=== PATIENT | female | born 1965 | race Caucasian/White ===

== ENCOUNTER 2025-07-13 12:43 | Outpatient (AMB) | payer MEDICARE, MEDICAID, SELFPAY ==
--- OUTSIDE RECORDS SUMMARY | 2025-07-09 22:59 | XMS_ITS | Continuity of Care Document ---
Author Organization [facility] Address [address] [place] [address]- Care Team Providers Care Fairing Man Name Role Phone Bharat Singh MD, Ezra Spaulding Primary Care Physic chuck [place] [facility] [place] - 07/09/25 [facility] [address] [place], [place] [phone] Encounter Type: Triage Allergies, Adverse Reactions, Alerts Substance Criticality Severity Reaction Reaction Severity Status vancomycin Active methylPREDNISolone throat sw ells, hives difuse swelling skin breakdown Active prochlorperazine Act gwyn Bactrim Active Benadryl 1 IV benadryl cau ses SOB, hives Active lisinopril S.O.B. Active sulfa drugs Active Rapamune itching, hives, chest tight, difficulty breathing Active 1tolerates po benadryl Immunizations Given and Recorded Vaccine Date Status Refusal Reason pneumococcal 20-valent conjugate vaccine 1 08/21/23 Given tetanus-diphtheria toxoids (Td) 2 08/21/23 Given [id number] bivalent booster vax 09/19/22 Recorded SARS-CoV-2 (COVID-19) mRNA-1273 vaccine 09/19/21 G iven SARS-CoV-2 (COVID-19) mRNA-1273 vaccine 03/30/21 R ecorded SARS-CoV-2 (COVID-19) mRNA-1273 vaccine 02/17/21 R ecorded tetanus/diphtheria/pertussis, acel(Tdap) 3 09/14/10 Given pneumococcal 23-valent vaccine 10/01/08 Given 1Result Comment: [facility] [id number] 2Result Comment: [facility] [id number] 3Admin Note: VIS GIVEN DATED 07/17 Medications acetaminophen-hydrocodone 325 mg-10 mg oral tablet 1 tablet, By Mouth, 2 times a day, PRN Pain , Severe, # 15 tablet, 0 Refills, Maintenance, 06/04/25 10:18:00 AM EDT, Tablet, [facility]/pharmacy #[id number], Partial fill upon patient request if the prescription is for a schedule II opioid drug., 1 tablet By Mouth 2 times a day,x7 days,PRN:Pain , Severe, 163, cm, 03/17/25 9:26:00 EDT, Height, 84.7, kg, 05/18/25 13:06:00 EDT, Dry Weight Start Date: 06/04/25 Stop Date: 06/11/25 Status: Ordered Medication Dispense Status: Completed Quantity: 15.0 Unit: tablet Total Allowed Fills: 1 Fills Dispensed: 0 ammonium lactate 12% topical lotion See Instructions, APPLY TO AFFECTED AREA EVERY DAY TOPICALLY, # 400 mL, 3 Refills, Maintenance, 03/25/25 10:40:00 AM EDT, [id number], 30, APPLY TO AFFECTED AREA EVERY DAY TOPICALLY, 163, cm, 03/17/25 9:26:00 EDT, Height, 84.6, kg, 03/23/25 12:43:00 EDT, Dry Weight Start Date: 03/25/25 Status: Ordered Medication Dispense Status: Completed Quantity: 400.0 Unit: mL Total Allowed Fills: 1 Fills Dispensed: 0 belatacept = 5 mg/kg, IV Infusion, 0 Refills, Maintenance, 12/19/24 5:00:00 PM EDT, Partial fill upon patient request if the prescription is for a schedule II opioid drug. Start Date: 12/19/24 Status: Ordered Medication Dispense Status: Completed Total Allowed Fills: 1 Fills Dispensed: 0 ciprofloxacin 250 mg oral tablet 1 tablet = 250 mg, By Mouth, Every 12 hours, # 14 tablet, 0 Refills, Maintenance, 01/26/25 1:40:00 PM EDT, Tablet, Partial fill upon patient request if the prescription is for a schedule II opioid drug. Start Date: 01/26/25 Stop Date: 02/02/25 Status: Ordered Medication Dispense Status: Completed Quantity: 14.0 Unit: tablet Total Allowed Fills: 1 Fills Dispensed: 0 cyanocobalamin 1000 mcg/ml injectable solution 1 mL, Intramuscular, Every 30 days, # 3 mL, 11 Refills, Maintenance, 03/17/25 10:06:00 AM EDT, [facility]/pharmacy #[id number], 163, cm, 03/17/25 9:26:00 EDT, Height, 85.2, kg, 02/23/25 12:46:00 EDT, Dry Weight Start Date: 03/17/25 Status: Ordered Medication Dispense Status: Completed Quantity: 3.0 Unit: mL Total Allowed Fills: 12 Fills Dispensed: 0 ergocalciferol 88569 iu oral capsule 1, capsule, By Mouth, Every week, # 13 capsule, Refills 2, Maintenance, 01/28/25 1:59:00 PM EDT, Route to Pharmacy Electronically, [id number], 163, cm, 01/22/25 11:26:00 EDT, Height, 85.3, kg, 01/26/25 13:12:00 EDT, Dry Weight Start Date: 01/28/25 Status: Ordered Medication Dispense Status: Completed Quantity: 13.0 Unit: capsule Total Allowed Fills: 1 Fills Dispensed: 0 Flonase 50 mcg/inh nasal spray 2 sprays, Nares, Both, 2 times a day, # 16 Gm, 11 Refills, Maintenance, 12/15/14 2:04:48 PM EDT, [place], [facility]/pharmacy #[id number], 2 sprays Nares, Both 2 times a day Start Date: 12/15/14 Status: Ordered Medication Dispense Status: Completed Quantity: 16.0 Unit: g Total Allowed Fills: 12 Fills Dispensed: 0 Hair, Skin & Nails 5 mg oral capsule 1 capsule = 5 mg, By Mouth, Daily, # 90 capsule, 2 Refills, Maintenance, 01/22/25 11:44:00 AM EDT, [id number], Partial fill upon patient request if the prescription is for a schedule II opioiddrug., 1 capsule By Mouth Daily, 163, cm, 01/22/25 11:26:00 EDT, Height, 85, kg, 01/22/25 11:26:00 EDT, Dry Weight Start Date: 01/22/25 Status: Ordered Medication Dispense Status: Completed Quantity: 90.0 Unit: capsule Total Allowed Fills: 3 Fills Dispensed: 0 lactobacillus acidophilus oral capsule 1 capsule, By Mouth, Daily, # 30 capsule, 0 Refills, Maintenance, 02/22/25 4:29:00 PM EDT, [facility] [id number], 30, TAKE 1 CAPSULE BY MOUTH EVERY DAY, 163, cm, 01/22/25 11:26:00 EDT, Height, 85.3, kg, 01/26/25 13:12:00 EDT, Dry Weight Start Date: 02/22/25 Status: Ordered Medication Dispense Status: Completed Quantity: 30.0 Unit: capsule Total Allowed Fills: 1 Fills Dispensed: 0 levothyroxine 125 mcg (0.125 mg) oral tablet 1 tablet = 125 mcg, By Mouth, Daily, 0 Refills, Maintenance, 10/08/18 1:57:48 PM EST Start Date: 10/08/18 Status: Ordered Medication Dispense Status: Completed Total Allowed Fills: 1 Fills Dispensed: 0 LORazepam 1 mg oral tablet See Instructions, TAKE 1 TABLET BY MOUTH 3 TIMES A DAY NEEDED FOR ANXIETY, # 90 tablet, 5 Refills, Maintenance, 01/22/25 11:48:00 AM EDT, [facility]/pharmacy #[id number], 163, cm, 01/22/25 11:26:00 EDT, Height,85, kg, 01/22/25 11:26:00 EDT, Dry Weight Start Date: 01/22/25 Stop Date: 02/04/27 Status: Ordered Medication Dispense Status: Completed Quantity: 90.0 Unit: tablet Total Allowed Fills: 6 Fills Dispensed: 0 LORazepam 1 mg oral tablet 1 tablet = 1 mg, By Mouth, 3 times a day, PRN for anxiety, # 90 tablet, 4 Refills, Maintenance, 08/18/24 4:37:00 PM EST, Tablet, [facility]/pharmacy #[id number], Partial fill upon patient request if the prescription is for a schedule II opioid drug., 163, cm, 08/11/24 14:44:00 EST, Height, 83.8, kg, 08/11/24 13: 16:00 EST, Dry Weight Start Date: 08/18/24 Status: Ordered Medication Dispense Status: Completed Quantity: 90.0 Unit: tablet Total Allowed Fills: 5 Fills Dispensed: 0 meloxicam 15 mg oral tablet 0.5 tablet = 7.5 mg, By Mouth, Daily Start Date: 12/19/24 Status: Ordered Medication Dispense Status: Completed Total Allowed Fills: 1 Fills Dispensed: 0 Metoprolol Succinate ER 25 mg oral tablet, extended release 25 mg, 1, tablet, By Mouth, Daily, # 90 tablet, Refills 3, Tot. Refills 3, Maintenance, 03/28/25 12:25:00 PM EDT, Route to Pharmacy Electronically, [facility]/pharmacy #[id number], 163, cm, 01/22/25 11:26:00 EDT, Height, 85, kg, 01/22/25 11:26:00 EDT, Dry Weight Start Date: 03/28/25 Status: Ordered Medication Dispense Status: Completed Quantity: 90.0 Unit: tablet Total Allowed Fills: 4 Fills Dispensed: 0 mycophenolic acid 180 mg oral delayed release tablet 3 tablet = 540 mg, By Mouth, 2 times a day, 1 hour before or 2 hours after meals, # 180 tablet, 0 Refills, Maintenance, 12/19/24 4:20:00 PM EDT, [facility] Tablet, Partial fill upon patient request if the prescription is for a schedule II opioid drug. Start Date: 12/19/24 Status: Ordered Medication Dispense Status: Completed Quantity: 180.0 Unit: tablet Total Allowed Fills: 1 Fills Dispensed: 0 Nexium 40 mg oral enteric coated capsule 1 capsule = 40 mg, By Mouth, Daily, # 30 capsule, 11 Refills, Maintenance, 06/09/25 3:50:00 PM EDT, [facility]/pharmacy #[id number], 163, cm, 03/17/25 9:26:00 EDT, Height, 84.7, kg, 05/18/25 13:06:00 EDT, Dry Weight Start Date: 06/09/25 Status: Ordered Medication Dispense Status: Completed Quantity: 30.0 Unit: capsule Total Allowed Fills: 12 Fills Dispensed: 0 Nexium 40 mg oral enteric coated capsule 1 capsule = 40 mg, By Mouth, 2 times a day, Maintenance, 12/19/24 4:56:00 PM EDT, Partial fill upon patient request if the prescription is for a schedule II opioid drug. Start Date: 12/19/24 Status: Ordered Medication Dispense Status: Completed Total Allowed Fills: 1 Fills Dispensed: 0 pravastatin 20 mg oral tablet 1 tablet = 20 mg, By Mouth, Daily, # 30 tablet, 11 Refills, Maintenance, 02/22/15 8:42:10 AM EDT, Tablet, [id number] Start Date: 02/22/15 Stop Date: 02/17/16 Status: Ordered Medication Dispense Status: Completed Quantity: 30.0 Unit: tablet Total Allowed Fills: 12 Fills Dispensed: 0 Ventolin HFA 108 mcg/inh inhalation aerosol with adapter 2 puffs, Inhalation, 4 times a day, PRN for wheezing, # 8 Gm, 0 Refills, Maintenance, 12/19/24 4:20:00 PM EDT, Aerosol, Partial fill upon patient request if the prescription is for a schedule II opioid drug. Start Date: 12/19/24 Status: Ordered Medication Dispense Status: Completed Quantity: 8.0 Unit: g Total Allowed Fills: 1 Fills Dispensed: 0 Vitamin B6 100 mg oral tablet 1 tablet = 100 mg, By Mouth, Daily, # 90 tablet, 3 Refills, Maintenance, 01/22/25 11:44:00 AM EDT, Tablet, [id number], Partial fill upon patient request if the prescription is for a schedule II opioid drug., 163, cm, 01/22/25 11:26:00 EDT, Height, 85, kg, 01/22/25 11:26:00 EDT, Dry Weight Start Date: 01/22/25 Stop Date: 01/17/26 Status: Ordered Medication Dispense Status: Completed Quantity: 90.0 Unit: tablet Total Allowed Fills: 4 Fills Dispensed: 0 Xarelto 15 mg oral tablet See Instructions, TAKE 1 TABLET BY MOUTH EVERY DAY BEFORE DINNER, # 90 tablet, 2 Refills, Maintenance, 01/28/25 1:59:00 PM EDT, [id number], 163, cm, 01/22/25 11:26:00 EDT, Height, 85.3, kg, 01/26/25 13:12:00 EDT, Dry Weight Start Date: 01/28/25 Status: Ordered Medication Dispense Status: Completed Quantity: 90.0 Unit: tablet Total Allowed Fills: 1 Fills Dispensed: 0 Problem List Condition Confirmation Course Effective Dates Status H ealth Status Informant Asthma Confirmed Active Atrial fibrillation Confirmed Active Bacterial sinusitis Confirmed Active Stage III chronic kidney disease Confirmed Active B12 deficiency Confirmed Active Depression Confirmed Active Facial palsy 1 Confirmed Active Fibromyalgia Confirmed Active Chronic GERD Confirmed Active History of renal transplant Confirmed Active Hypertension Confirmed Active Hypothyroidism Confirmed Active Libido, decreased Confirmed Active Lupus nephritis Confirmed Active Severe obesity Confirmed Active 1Left lower motor neuron Patient Care team information Care Team Personnel Name: Ebony Miller RN Position: [facility] Nurse Member Role: Primary Care Nurse Name: Martha Zimmerman RN Position: [facility] RN Member Role: Primary Care Nurse Name: Mark John RN Position: [facility] RN Member Role: Primary Care Nurse Name: Gabriela Ragsdale Position: [facility] Outreach Member Role: Lifetime Consulting Physician Name: Cali Navas Position: [facility] RN Member Role: Primary Care Nurse Name: Loc Perez DO Position: [facility] Renal MD Member Role: Lifetime Consulting Physician Address: [address] [place] [address] [facility] [place], [place] [address] Telecom: Name: Roselyn Kathleen Position: [facility] RN Member Role: Primary Care Nurse Name: Courtney Mccrary RN Position: [facility] Nurse Member Role: Primary Care Nurse Name: Ezra Nj MD Position: [facility] Physician - Primary Care Member Role: PCP Address: [address] [place] [id number]- Telecom: Name: Eulalio Lara RN Position: [facility] RN Member Role: Primary Care Nurse Name: Alyssa Vallecillo RN Position: [facility] RN Member Role: Primary Care Nurse Care Team Related Persons Name: ABIMAEL NO Insurance Providers Guarantor name: FERNANDO SINGH Health Plan Information #: 1 Payer: MEDICARE B Payer Identifier: FAVIAN Member Number: [id number] Group Number: NA Subscriber Identifier: FAVIAN Relationship to Subscriber: self Coverage Type: NA Coverage Verification Date: NA Telecom: NA Address: NA Health Plan Information #: 2 Payer: [employer] Payer Identifier: FAVIAN Member Number: [id number] Group Number: [id number] Subscriber Identifier: NA Relationship to Subscriber: self Coverage Type: MEDICAID Coverage Verification Date: NA Telecom: NA Address: NA
--- NOTE | 2025-07-13 13:10 | A.OFFPC_ITS ---
Vital Signs 07/13/25 13:16 07/13/25 14:07 Height 5 ft 4 in Weight 184 lb BMI 31.6 BP 150/84 H 124/82 Blood Pressure Location Rt brachial Position Sitting Respiration 16 Pulse 68 Pulse Source Pulse Oximeter Temp 97.1 F Temp Source Temporal Artery Scan Pulse Oximetry (%) 96 Oxygen Delivery Method Room Air Intake Visit Reasons: reestablish care Powder Worker Tnt Required: No Accompanied by: Mother Allergies diphenhydramine (From Benadryl) Allergy (Severe, Verified 07/13/25 13:31) itching/throat swelling lisinopril Allergy (Severe, Verified 07/13/25 13:31) itching/throat swelling methylprednisolone Allergy (Severe, Verified 07/13/25 13:31) jumpy prochlorperazine Allergy (Severe, Verified 07/13/25 13:31) itching/throat swelling sirolimus (From Rapamune) Allergy (Severe, Verified 07/13/25 13:31) itching/throat swelling Sulfa (Sulfonamide Antibiotics) Allergy (Severe, Verified 07/13/25 13:31) itching/throat swelling sulfamethoxazole (From Bactrim) Allergy (Severe, Verified 07/13/25 13:31) itching/throat swelling trimethoprim (From Bactrim) Allergy (Severe, Verified 07/13/25 13:31) itching/throat swelling vancomycin Allergy (Severe, Verified 07/13/25 13:31) itching/throat swelling fluoxetine Adverse Reaction (Intermediate, Verified 07/13/25 13:53) mental fogginess Medication List - Last Reconciled 07/13/25 by Kaye Talavera MD albuterol sulfate 90 mcg/actuation inhalation belatacept IV cyanocobalamin (vitamin B-12) 1,000 mcg IM QMONTH ergocalciferol (vitamin D2) 1,250 mcg PO QWEEK esomeprazole magnesium mg PO fluoxetine 20 mg PO DAILY fluticasone propionate 50 mcg/actuation 2 sprays intranasal BID hydrocodone-acetaminophen 10-325 mg 1 tab PO BID PRN levothyroxine 125 mcg PO DAILY lorazepam 1 mg PO TID PRN meloxicam 7.5 mg PO ONCE metoprolol succinate ER 25 mg PO DAILY mycophenolate sodium 540 mg PO pravastatin 20 mg PO DAILY prednisone 10 mg PO DAILY pyridoxine (vitamin B6) 100 mg PO DAILY rivaroxaban (Xarelto) 15 mg PO QPM Tobacco use date assessed: 07/13/25 Dental Screening Dental Screen Date: 07/13/25 Did you have a dental visit in the last 12 months?: No Did you have a dental problem in the last 6 months where you did not have access to dental care?: No HPI HPI Comments History of Present Illness Details The patient is a 59-year-old female [facility] with cervical pain and other medical conditions. Renal Transplant/history of lupus nephritis: History of renal transplant used to see Dr. Garcia. Now seeing Dr. Khoury Fibromyalgia: Chronic fibromyalgia with worsening neck pain. Atrial Fibrillation: Previously diagnosed atrial fibrillation managed with xarelto. Hypothyroidism- on levothyroxine Cervical Pain: Progressive cervical pain with 'cracking' sound during movement, worsening over two months, resistant to heat/cold therapy. Cold Sensation and Numbness in the Right Index Finger: Persistent cold and numb sensation in the right index finger without noted alleviation from positional changes. B12 deficiency- receives b12 injections monthly HTN- stable on repeat Depression/anxiety- worsened in setting of increased pain. Has trialed SSRIS in the past with renal provider. Surgical History: - Renal Transplant Surgery Review of Systems - Respiratory: Denies wheezing. - Cardiovascular: Denies recent atrial f ibrillation episodes. - Gastrointestinal: Denies effectiveness of generic esomeprazole - Musculoskeletal: Reports neck pain wit h cracking sensation. - Neurological: Reports cold sensation a nd numbness in the right index finger. Physical Exam - Respiratory- Lungs clear to auscultati on, no wheezing noted. - Cardiovascular- Heart sounds normal. S oft murmur across precordium - Extremities- Mild lower extremity yony a noted. - Msk: tender to palpation left sternocl eidomastoid, pain with flexion and extension of neck Assessment and Plan 1. Renal Transplant - Continue monitoring and manage immunos uppressive therapy per renal. Pt is also considering switching renal providers 2. 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 Atrial Fibrillation - Continue anticoagulation therapy. 4. Cervical Pain - Initiate cervical spine x-ray and cons ider pain management referral. 5. Cold Sensation and Numbness in the Ri ght Index Finger - Evaluate for neurologic or vascular is sues pending diagnostic test. 6. Depression/anxiety-continue to monito r 7. B12 deficiency- received b12 injectio n today Follow up in 4 months Discussion Notes The cervical spine's pain and the sensation issues in her right index finger were discussed in detail. We covered the benefits of immediate x-ray imaging to identify any structural concerns that may be contributing to these symptoms. Further management will include interpretation of these x-rays and corresponding adjustments to her care, potentially involving a referral to pain management if neck pain persists. We reviewed the risks of continuing and changing medications, ensuring the patient's understanding of each prescribed therapy. We confirmed ongoing xarelto for atrial fibrillation and plans to reconnect with her previous cardiology team at [facility]. I emphasized the need for follow-up after imaging and confirmed our plans to avoid any unintended medication interactions. Patient Instructions - Schedule a cervical x-ray as soon as p ossible to assess neck pain issues. - Continue taking all current medication s as prescribed. - Monitor for any changes in sensation o r pain in the fingers. - Follow-up for results and further jailyn hu. - Make an appointment for routine labs w hen picking up medications. - Set up a patient portal account for ea sy communication and document upload. - Contact your cardiology provider to co nfirm any follow-up care needed for atrial fibrillation. - Check with pharmacy for medication shonda ilability and olive picker. [facility] Medical History (Updated 07/13/25 @ 17:21 by Kaye Talavera MD) B12 deficiency Neck pain Anxiety Depression Asthma Primary hypertension Fibromyalgia Hypothyroid Atrial fibrillation Lupus nephritis Surgical History (Updated 07/13/25 @ 13:26 by Kaye Talavera MD) H/O vaginal hysterectomy History of renal transplant Social History Housing: House Patient Tobacco Use Status: Former Tobacco user e-Cigarette/Vaping Use: Never Used Current occupational status: disabled Questionnaire AUDIT C Alcohol Use Questionnaire (AUDIT-C) 1. How often do you have a drink containing alcohol?: Monthly or less 2. How many drinks containing alcohol do you have on a typical day when you are drinking?: 1 or 2 3. How often do you have six or more drinks on one occasion?: Never Total Score: 1 Physical exam (Primary Care) Vital Signs: Last Vital Signs Temp 97.1 F 07/13/25 13:16 Pulse 68 07/13/25 13:16 Resp 16 07/13/25 13:16 BP 124/82 07/13/25 14:07 Pulse Ox 96 07/13/25 13:16 Oxygen Delivery Method Room Air 07/13/25 13:16 BMI result Body Mass Index 31.6 Tobacco/Smoking Status: Tobacco use Status Tobacco use date assessed 07/13/25 07/13/25 13:41 Patient Tobacco Use Status Former Tobacco user 07/13/25 13:41 e-Cigarette/Vaping Use Never Used 07/13/25 13:41 Office Meds cyanocobalamin (vitamin B-12) 1,000 mcg/mL injection solution Performing Provider: Kaye Talavera MD Performing Location: [facility] [place] [facility]-10 HD Administered by: Maryanne Tariq LPN on 07/13/25 14:15 Dose Route Admin Location Dispensed Lot Number Expiration Date [facility] Poke In 1,000 mcg IM right deltoid 1 mL [id number] 12/07/27 08450-735-04 [employer] Total Dispensed Waste 1 mL 0 % Coding Level of Care Code Est Pt Level 4 (58496) Complex EM visit Add On G2211 Diagnoses Primary hypertension I10 History of renal transplant Z94.0 Fibromyalgia M79.7 Atrial fibrillation, unspecified type I48.91 Atrial fibrillation type: unspecified Acquired hypothyroidism E03.9 Hypothyroidism type: acquired Lupus nephritis M32.14 Depression, unspecified depression type F32.A Depression Type: unspecified Anxiety F41.9 B12 deficiency E53.8 Assessment & Plan Assessment & Plan (1) Primary hypertension: Code(s): I10 - Essential (primary) hypertension Category: Medical (2) History of renal transplant: Code(s): Z94.0 - Kidney transplant status Category: Surgical (3) Fibromyalgia: Code(s): M79.7 - Fibromyalgia Category: Medical (4) Atrial fibrillation: Code(s): I48.91 - Unspecified atrial fibrillation Category: Medical Qualifiers: Atrial fibrillation type: unspecified Qualified Code(s): I48.91 - Unspecified atrial fibrillation (5) Hypothyroid: Code(s): E03.9 - Hypothyroidism, unspecified Category: Medical Qualifiers: Hypothyroidism type: acquired Qualified Code(s): E03.9 - Hypothyroidism, unspecified Plan: continue current regimen (6) Lupus nephritis: Code(s): M32.14 - Glomerular disease in systemic lupus erythematosus Category: Medical (7) Depression: Code(s): F32.A - Depression, unspecified Category: Medical Qualifiers: Depression Type: unspecified Qualified Code(s): F32.A - Depression, unspecified (8) Anxiety: Code(s): F41.9 - Anxiety disorder, unspecified Category: Medical (9) B12 deficiency: Code(s): E53.8 - Deficiency of other specified B group vitamins Category: Medical Plan Plan - Order cervical spine x-ray. - Continue current medications. - Follow-up for imaging results. Orders: Orders XR cervical spine 5V Today M54.2 - Cervicalgia Vitamin B12 Today E03.9 - Hypothyroidism, unspecified, I10 - Essential (primary) hypertension, I48.91 - Unspecified atrial fibrillation, M32.14 - Glomerular disease in systemic lupus erythematosus TSH reflex Free T4 Today E03.9 - Hypothyroidism, unspecified, I10 - Essential (primary) hypertension, I48.91 - Unspecified atrial fibrillation, M32.14 - Glomerular disease in systemic lupus erythematosus Lipid Panel Today E03.9 - Hypothyroidism, unspecified, I10 - Essential (primary) hypertension, I48.91 - Unspecified atrial fibrillation, M32.14 - Glomerular disease in systemic lupus erythematosus IRON PROFILE Today E03.9 - Hypothyroidism, unspecified, I10 - Essential (primary) hypertension, I48.91 - Unspecified atrial fibrillation, M32.14 - Glomerular disease in systemic lupus erythematosus Folate Today E03.9 - Hypothyroidism, unspecified, I10 - Essential (primary) hypertension, I48.91 - Unspecified atrial fibrillation, M32.14 - Glomerular disease in systemic lupus erythematosus Magnesium Today E03.9 - Hypothyroidism, unspecified, I10 - Essential (primary) hypertension, I48.91 - Unspecified atrial fibrillation, M32.14 - Glomerular disease in systemic lupus erythematosus Vitamin D 25-OH Total Today E03.9 - Hypothyroidism, unspecified, I10 - Essential (primary) hypertension, I48.91 - Unspecified atrial fibrillation, M32.14 - Glomerular disease in systemic lupus erythematosus Ferritin Today E03.9 - Hypothyroidism, unspecified, I10 - Essential (primary) hypertension, I48.91 - Unspecified atrial fibrillation, M32.14 - Glomerular disease in systemic lupus erythematosus Complete Blood Count Auto Diff Today E03.9 - Hypothyroidism, unspecified, I10 - Essential (primary) hypertension, I48.91 - Unspecified atrial fibrillation, M32.14 - Glomerular disease in systemic lupus erythematosus Cannabinoid Screen Urine Today E03.9 - Hypothyroidism, unspecified, I10 - Essential (primary) hypertension, I48.91 - Unspecified atrial fibrillation, M32.14 - Glomerular disease in systemic lupus erythematosus Cocaine Screen Urine Today E03.9 - Hypothyroidism, unspecified, I10 - Essential (primary) hypertension, I48.91 - Unspecified atrial fibrillation, M32.14 - Glomerular disease in systemic lupus erythematosus Benzodiazepines Screen Urine Today E03.9 - Hypothyroidism, unspecified, I10 - Essential (primary) hypertension, I48.91 - Unspecified atrial fibrillation, M32.14 - Glomerular disease in systemic lupus erythematosus Alcohol, Ethyl Urine Screen Today E03.9 - Hypothyroidism, unspecified, I10 - Essential (primary) hypertension, I48.91 - Unspecified atrial fibrillation, M32.14 - Glomerular disease in systemic lupus erythematosus Microalbumin, Random (w Creat) Today E03.9 - Hypothyroidism, unspecified, I10 - Essential (primary) hypertension, I48.91 - Unspecified atrial fibrillation, M32.14 - Glomerular disease in systemic lupus erythematosus Opiate Screen Urine Today E03.9 - Hypothyroidism, unspecified, I10 - Essential (primary) hypertension, I48.91 - Unspecified atrial fibrillation, M32.14 - Glomerular disease in systemic lupus erythematosus AMB Vitamin B12 Injection Patient Supplied Today E53.0 - Riboflavin deficiency Medications: New esomeprazole magnesium 40 mg PO BID 90 days 180 caps 3RF NS esomeprazole magnesium 40 mg PO BID 180 caps 3RF 90 days NS Patient Instructions: GET XRAY OF NECK GET FASTING LABS GET TOX SCREEN
[2025-07-13 13:16] VITALS: BP 150/84; PULSE 68; RESP 16; TEMP 36.2; O2SAT 96; BMI 31.6
[2025-07-13 14:07] VITALS: BP 124/82
--- OUTSIDE RECORDS SUMMARY | 2025-07-13 15:25 | XMS_ITS | Clinical Summary ---
Author Organization [facility] [employer] [facility] Address [address] [place] [address] Phone Care Team Providers Care Card Feeder Name Role Phone Kaye Talavera MD Primary Care Provider +1- [phone] Allergies Active Allergy Reactions Criticality Noted Date Comments Diphenhydramine Hcl 07/02/2022 Lisinopril 07/02/2022 Methylprednisolone 07/02/2022 Prochlorperazine 07/02/2022 Sirolimus 07/02/2022 Sulfa (Sulfonamide Antibiotics) 06/10 Other Reaction(s): Numbness, tingling or swelling of the lips, tongue or mouth Trimethoprim 07/02/2022 Vancomycin 07/02/2022 Medications albuterol sulfate (ProAir RespiClick) 90 mcg/actuation aerosol powdr breath activated Inhale into the lungs. Active belatacept (NULOJIX) 250 mg recon soln Inject into the vein every 30 days. Active ergocalciferol (VITAMIN D-2) 1,250 mcg (50,000 unit) capsule Take by mouth once a week. Active esomeprazole (NexIUM) 40 mg packet Take 40 mg by mouth every morning (before breakfast). Active fluticasone propionate (FLONASE) 50 mcg/actuation nasal spray 2 Sprays by Each Nare route daily. Active HYDROcodone-tylor taminophen (VICODIN) 10-300 mg per tablet Take by mouth at bedtime. Active levothyroxine (SYNTHROID, LEVOTHROID) 125 mcg tablet Take 1 Tablet by mouth daily. Active LORazepam (ATIVAN) 1 mg tablet Take 3 Tablets by mouth at bedtime. Active metoprolol succinate (TOPROL-XL) 25 mg 24 hr tablet Take 2 Tablets by mouth daily. 12/06/2022 Active mycophenolate (MYFORTIC) 180 mg EC tablet Take 3 Tablets by mouth 2 times daily. Active pravastatin (PRAVACHOL) 20 mg tablet Take 1 Tablet by mouth daily. Active predniSONE (DELTASONE) 10 mg tablet Take 1 Tablet by mouth as needed. Active rivaroxaban (XARELTO) 15 mg tablet Take by mouth daily. Active melatonin 5 mg tablet Take by mouth at bedtime. Active meloxicam (MOBIC) 15 mg tablet Take 1 Tablet by mouth daily. Active pyridoxine HCl, vitamin B6, (PYRIDOXINE, VITAMIN B6, ORAL) Take by mouth daily. Active FLUoxetine (PROzac) 20 mg capsule Take 1 capsule (20 mg total) by mouth 1 (one) time each day. Active Active Problems Problem Noted Date Diagnosed Date S/P kidney transplant 11/02/2024 Chronic kidney disease 07/02/2022 Assessment & Plan (11/02/2024 2:47 PM EST): Other chest pain 07/02/2022 Assessment & Plan (11/02/2024 2:47 PM EST): Orders: ECG 12 lead Paroxysmal atrial fibrillation (CMS/HCC V24, CMS /HCC V28) 07/02/2022 Assessment & Plan (11/02/2024 2:47 PM EST): Orders: ECG 12 lead Primary hypertension 07/02/2022 Assessment & Plan (11/02/2024 2:47 PM EST): Orders: ECG 12 lead Social History Tobacco Use Types Packs/Day Years Used Date Smoking Tobacco: Former Smokeless Tobacco: Never Alcohol Use Standard Drinks/Week Comments Not Currently 0 (1 standard drink = 0.6 oz pur e alcohol) Comments Unknown Sex and Gender Information Value Date Recorded Sex Assigned at Not on file Legal Sex Female 2:26 PM EST Gender Identity Not on file Sexual Orientation Not on file Obstetrics History Last Filed Vital Signs Vital Sign Reading Time Taken Comments Blood Pressure 140/86 11/02/2024 1:41 PM EST Pulse 69 11/02/2024 1:41 PM EST Temperature - - Respiratory Rate - - Oxygen Saturation 99% 11/02/2024 1:41 PM EST Inhaled Oxygen Concentration - - Weight 84.5 kg (186 lb 3.2 oz) 11/02/2024 1:41 P M EST Height 162.6 cm (5' 4 ) 11/02/2024 1:41 PM EST Body Mass Index 31.96 11/02/2024 1:41 PM EST Plan of Treatment Health Maintenance Due Date Last Done Comments Breast Cancer Screening 1965 Colorectal Cancer Screening: Colonoscopy 1965 Diabetes: Annual GFR (Glomerular Filtration Rate) 1965 Diabetes: Annual Foot Exam 1975 Diabetes: Annual Retina Eye Exam 1975 Hepatitis B Vaccines (1 of 3 - 19+ 3-dose series) 1984 Zoster Vaccines (1 of 2) 1984 Cervical Cancer Screening: Pap Smear 1986 RSV Immunization Adult Patients (1 - Risk 50-74 years 1-dose series) 2015 Cholesterol Screening (Lipid Panel) 08/08/2022 HIV Screening 08/08/2022 Hepatitis C Screening 08/08/2022 Medicare Annual Wellness Visit 08/08/2022 Social Influencers of Health Screening 08/08/2022 Hypertension/CHF/CAD Annual BMP Blood Test 08/19/2022 Depression Screening 09/09/2024 COVID-19 Vaccine ( season) 2025 09/19/2022, 09/19/2021, 03/30/2021, Additional history exists Influenza Vaccine (#1) 2025 Diabetes: Blood Sugar Control Test (HGBA1C) 07/12/2025 06/15/2024, 02/21/2024 Diabetes: Annual Urine Albumin-Creatinine Ratio (uACR) 05/21/2026 05/21/2025 DTaP,Tdap,and Td Vaccines (3 - Td or Tdap) 08/21/2033 08/21/2023, 09/14/2010 Pneumococcal Vaccine: 50+ Years Completed 08/21/2023, 10/01/2008 HIB Vaccines Aged Out No longer eligi ble based on patient's age to complete this topic HPV Vaccines Aged Out No longer eligi ble based on patient's age to complete this topic Hepatitis A Vaccines Aged Out No long er eligible based on patient's age to complete this topic IPV Vaccines Aged Out No longer eligi ble based on patient's age to complete this topic MMR Vaccines Aged Out No longer eligi ble based on patient's age to complete this topic Meningococcal ACWY Vaccine Aged Out N o longer eligible based on patient's age to complete this topic Meningococcal B Vaccine Aged Out No l onger eligible based on patient's age to complete this topic RSV Immunization Patients Under 20 months Aged Out No longer eligible based on patient's age to complete this topic Varicella Vaccines Aged Out No longer eligible based on patient's age to complete this topic Insurance MEDICARE MEDICAID - [place] Care Teams Card Feeder Relationship Specialty Start Date End Date Kaye Talavera MD [address] [place] [address] PCP - General 04/18/16
== END 2025-07-13 14:39 | disposition home or self-care (01) ==
LOC: HO.HMCHD 12:44
PROVIDERS: PCP Internal Medicine; Visit Provider Internal Medicine
DX: I10 Essential (primary) hypertension (principal); Z94.0 Kidney transplant status; M79.7 Fibromyalgia; I48.91 Unspecified atrial fibrillation; E03.9 Hypothyroidism, unspecified; M32.14 Glomerular disease in systemic lupus erythematosus; F32.A Depression, unspecified; F41.9 Anxiety disorder, unspecified; E53.8 Deficiency of other specified B group vitamins; E53.0 Riboflavin deficiency

== ENCOUNTER → 2025-07-13 12:43 | Outpatient (BNVA) | payer MEDICARE, MEDICAID, SELFPAY | PROVIDERS: PCP Internal Medicine; Visit Provider Internal Medicine | DX: Z76.89 Persons encountering health services in other specified circumstances (principal); I10 Essential (primary) hypertension; M79.7 Fibromyalgia; I48.91 Unspecified atrial fibrillation; M54.2 Cervicalgia; E03.9 Hypothyroidism, unspecified; M32.14 Glomerular disease in systemic lupus erythematosus; F32.A Depression, unspecified; F41.9 Anxiety disorder, unspecified; E53.8 Deficiency of other specified B group vitamins; Z79.01 Long term (current) use of anticoagulants; Z79.899 Other long term (current) drug therapy; Z94.0 Kidney transplant status | CPT/HCPCS: 96372; 99212; J3420 ==

== ENCOUNTER 2025-07-14 11:01 | Outpatient (REF) | payer MEDICARE, MEDICAID, SELFPAY ==
--- OUTSIDE RECORDS SUMMARY | 2025-07-14 13:18 | XMS_ITS | Clinical Summary ---
Author Organization [facility] Address [address] [place] [address] Phone Care Team Providers Care Conduit Installer Name Role Phone Kaye Talavera MD Primary Care Provider +1- [phone] Allergies Active Allergy Reactions Criticality Noted Date [...] Insurance MEDICARE [place]ICAID - [place] Care Teams Conduit Installer Relationship Specialty Start Date End Date Kaye Talavera MD [address] [place] [address] PCP - General 04/18/16
[2025-07-14 13:33] LABS: MANUAL DIFF FLAG NO
[2025-07-14 13:34] LABS: Cannabinoid Screen Urine Not Detected (Not Detect)
[2025-07-14 13:38] LABS: Hematocrit 39.3 % (37.0-47.0); Hemoglobin 12.4 g/dl (12.0-16.0); Imm Gran Abs Auto 0.02 X10*3/uL (0.00-0.03); Imm Gran Pct Auto 0.4 % (0.0-0.4); Lymphocytes Absolute Auto 1.5 X10*3/uL (1.2-4.9); Mean Corpuscular HGB Conc 31.6 g/dl (31.0-35.0); Mean Corpuscular Hemoglobin 30.2 pg (27.0-33.0); Mean Corpuscular Volume 95.6 fL (80.0-98.0); NRBC Abs Auto 0.000 X10*3/uL (0.0-0.012); NRBC Pct Auto 0.0 /100WBC (0.0-0.2); Platelet Count 197 X10*3/uL (160-400); Red Blood Count 4.11 X10*6/uL (4.20-5.50); White Blood Count 5.7 X10*3/uL (4.8-10.8)
[2025-07-14 14:33] LABS: Microalbum/Creatinine Ratio Ur 482.8 ug/mg cr (<30)
[2025-07-14 18:56] LABS: Cholesterol 222 mg/dL (<200); HDL Cholesterol 47 mg/dL (>40); Iron 93 mcg/dL (30-160); Magnesium 2.5 mg/dL (1.6-2.6); Percent Iron Saturation 33 % (15-50); Total Iron Binding Capacity 279 mcg/dL (228-428); Triglycerides 150 mg/dL (<150); Unsaturated Iron Binding 186 ug/dL
[2025-07-14 18:59] LABS: Ferritin 161 ng/mL (10-250)
[2025-07-14 19:09] LABS: Folate 6.0 ng/mL (> or = 4.0); Vitamin B12 > 2000 pg/mL (200-900)
[2025-07-16 08:35] LABS: Alcohol, Ethyl Urine Screen NEGATIVE
== END 2025-07-14 11:02 | disposition home or self-care (01) ==
LOC: HO.HKASLDS 11:01
PROVIDERS: PCP Internal Medicine; Visit Provider Internal Medicine
DX: I10 Essential (primary) hypertension (principal); I48.91 Unspecified atrial fibrillation; E03.9 Hypothyroidism, unspecified; M32.14 Glomerular disease in systemic lupus erythematosus; Z51.81 Encounter for therapeutic drug level monitoring
CPT/HCPCS: 80061; 80307; 82043; 82306; 82570; 82607; 82728; 82746; 83540; 83735; 84443; 85025

== ENCOUNTER 2025-07-21 16:28 | Outpatient (REF) | payer MEDICARE, MEDICAID, SELFPAY ==
--- NOTE | ~2025-07-21 | XR_ITS ---
EXAMINATION: XR CERVICAL SPINE CLINICAL INFORMATION: M54.2 - Cervicalgia COMPARISON: None available. TECHNIQUE: 6 views FINDINGS: Bone mineralization is decreased. Mild retrolisthesis at C5-6, mild anterolisthesis of C6-7. Vertebral body heights are maintained. No evidence of acute fracture. Multilevel facet degeneration. Mild-moderate C5-6 disc degeneration No prevertebral soft tissue swelling Narrowing of some of the right neural foramen. Lung apices are clear. XR/XR cervical spine 5V IMPRESSION: No acute findings. Cervical spondylosis as above. Electronically signed by: Santos Hill MD 07/22/2025 11:14 AM EDDIE
--- OUTSIDE RECORDS SUMMARY | 2025-07-21 19:05 | XMS_ITS | Encounter Summary ---
Author Organization [facility] Address [address] [place] [address] Phone Care Team Providers Care Manager International Name Role Phone Kaye Talavera MD Primary Care Provider +1- [phone] Encounter Details Date Type Department Care Team (Late st Contact Info) Description 01/28/2023 Documentation Only [facility], [address] [place] [address] [place], [place] [address] [place] [address] Social History Tobacco Use Types Packs/Day Years Used Date Smoking Tobacco: Never Alcohol Use Standard Drinks/Week Comments No 0 (1 standard drink = 0.6 oz pur e alcohol) Comments Unknown Sex and Gender Information Value Date Recorded Sex Assigned at Not on file Legal Sex Female 4:34 PM EST Gender Identity Not on file Sexual Orientation Not on file documented as of this encounter Plan of Treatment Not on file documented as of this encounter Visit Diagnoses Not on filedocumented in this encounter Care Teams Manager International Relationship Specialty Start Date End Date Kaye Talavera MD [address] [place], [place] PCP - General Internal Medicine 12/24/19 documented as of this encounter
--- OUTSIDE RECORDS SUMMARY | 2025-07-21 19:05 | XMS_ITS | Encounter Summary ---
Author Organization [facility], Address [address] [place] [address] Phone Care Team Providers Care Creative Project Manager Name Role Phone Kaye Talavera MD Primary Care Provider +1- [phone] Reason for Visit * Reason Comments Med Refill Encounter Details Date Type Department Care Team (Late st Contact Info) Description 04/25/2022 Refill [facility] [address] [place] [address] Saulo Garcia MD Social History Tobacco Use Types Packs/Day Years [...] on filedocumented in this encounter Care Teams Creative Project Manager Relationship Specialty Start Date End Date Kaye Talavera MD [address] [place], [place] PCP - General Internal Medicine 12/24/19 documented as of this encounter
--- OUTSIDE RECORDS SUMMARY | 2025-07-21 19:05 | XMS_ITS | Encounter Summary ---
Author Organization [facility], Address [address] [place] [address] Phone Care Team Providers Care Copy Director Name Role Phone Kaye Talavera MD Primary Care Provider +1- [phone] Encounter Details Date Type Department Care Team (Latest Contact Info) Description 05/20/2020 Orders Only [facility] [address] [place] [id number] Saulo Garcia MD Chronic kidney disease stage 3 (HCC); Anemia in chronic kidney disease; History of renal transplant; SLE glomerulonephritis syndrome (HCC); Congenital iodine-deficiency syndrome, mixed type Social History Tobacco Use Types Packs/Day Years Used Date Smoking Tobacco: Never Comments Unknown Sex and Gender Information Value Date Recorded Sex Assigned at Not on file Legal Sex Female 4:34 PM EST Gender Identity Not on file Sexual Orientation Not on file documented as of this encounter Plan of Treatment Not on file documented as of this encounter Procedures Procedure Name Priority Date/Time Associated Diagnosis Comments LIPID PANEL Routine 06/27/2020 2:10 PM EDT Chronic kidney disease stage 3 Anemia in chronic kidney disease History of renal transplant SLE glomerulonephritis syndrome (HCC) Congenital iodine-deficiency syndrome, mixed type documented in this encounter Results * Lipid panel (06/27/2020 2:10 PM EDT) Cholesterol, Total 172 (<200) MG/DL [facility] Triglycerides 109 (<150) MG/DL [facility] Comment:Patient not fasting HDL 59 (>39) MG/DL [facility] LDL Calculated 91 (0-130) MG/DL [facility] Non HDL Cholesterol 113 (<160) MG/DL [facility] Comment: Testing performed or reported by [facility], a Service of [facility], [address] [place] [address] Bel Mora MD, Cake Washer Blood specimen (specimen) Venous blood / Unknown 06/27/2020 2:10 PM EDT 06/27/2020 2:12 PM EDT us Saulo Garcia MD LAB BLOOD ORDERABLES Final Res ult [facility] documented in this encounter Visit Diagnoses Diagnosis Chronic kidney disease stage 3 (HCC) Anemia in chronic kidney disease History of renal transplant SLE glomerulonephritis syndrome (HCC) Congenital iodine-deficiency syndrome, mixed type documented in this encounter Care Teams Copy Director Relationship Specialty Start Date End Date Kaye Talavera MD [address] [place], [place] PCP - General Internal Medicine 12/24/19 documented as of this encounter
--- OUTSIDE RECORDS SUMMARY | 2025-07-21 19:05 | XMS_ITS | Encounter Summary ---
Author Organization [facility], Address [address] [place] [address] Phone Care Team Providers Care Barn Worker Name Role Phone Kaye Talavera MD Primary Care Provider +1- [phone] Encounter Details Date Type Department Care Team (Latest Contact Info) Description 12/04/2019 Orders Only [facility] [address] [place] [phone] Saulo Garcia MD Chronic kidney disease stage [...] Procedure Name Priority Date/Time Associated Diagnosis Comments CREATINE KINASE, MB 12/30/2019 11:42 AM EDT LIPID PANEL Routine 12/30/2019 11:42 AM EDT Chronic kidney disease stage 3 (HCC) Anemia in chronic kidney disease History of renal transplant SLE glomerulonephritis syndrome (HCC) Congenital iodine-deficiency syndrome, mixed type documented in this encounter Results * CKMB (12/30/2019 11:42 AM EDT) CKMD Index 3.4 (0-6) NG/ML [facility] Comment: Testing performed or reported by [facility], a Service of [facility], [address] [place] [address] Bel Mora MD, Professional Athlete 12/30/2019 11:4 2 AM EDT 12/30/2019 11:45 AM EDT Saulo Garcia MD LAB BLOOD ORDERABLES Final Res ult Performing Organization Address [facility] de Phone Number [facility] * Lipid panel (12/30/2019 11:42 AM EDT) Pathologist [facility] Cholesterol, Total 178 (<200) MG/DL [facility] Triglycerides 136 (<150) MG/DL [facility] HDL 47 (>39) MG/DL [facility] LDL Calculated 104 (0-130) MG/DL [facility] Non HDL Cholesterol 131 (<160) MG/DL [facility] Comment: Testing performed or reported by [facility], a Service of [address] [address] Bel Mora MD, Professional Athlete Blood specimen (specimen) Venous blood / Unknown 12/30/2019 11:42 AM EDT 12/30/2019 11:45 AM EDT Saulo Garcia MD LAB BLOOD ORDERABLES Final Res ult Performing Organization Address [facility] Co de Phone Number [facility] documented in this encounter Visit Diagnoses Diagnosis Chronic kidney disease stage 3 (HCC) Anemia in chronic kidney disease History of renal transplant SLE glomerulonephritis syndrome (HCC) Congenital iodine-deficiency syndrome, mixed type documented in this encounter Care Teams Barn Worker Relationship Specialty Start Date End Date Kaye Talavera MD [address] [place], [place] PCP - General Internal Medicine 12/24/19 documented as of this encounter
--- OUTSIDE RECORDS SUMMARY | 2025-07-21 19:05 | XMS_ITS | Encounter Summary ---
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
--- OUTSIDE RECORDS SUMMARY | 2025-07-21 19:05 | XMS_ITS | Encounter Summary ---
Author Organization [facility] [place], Address [address] [address] Phone Care Team Providers Care Chemical Etch Operator Name Role Phone Kaye Talavera MD Primary Care Provider +1- [phone] Reason for Visit * Reason Comments Med Change Request Encounter Details Date Type Department Care Team ([facility] st Contact Info) Description 06/18/2025 Refill [facility] [place], [address] [place] [phone] Bertin Khoury MD [address] [address] [place] [address] Social History Tobacco Use Types Packs/Day Years [...] on filedocumented in this encounter Care Teams Chemical Etch Operator Relationship Specialty Start Date End Date Kaye Talavera MD [address] [place], [place] PCP - General Internal Medicine 12/24/19 documented as of this encounter
--- OUTSIDE RECORDS SUMMARY | 2025-07-21 19:05 | XMS_ITS | Encounter Summary ---
Author Organization [facility] Address [address] [place] [address] Phone Care Team Providers Care Printing Press Operator Name Role Phone Kaye Talavera MD Primary Care Provider +1- [phone] Encounter Details Date Type Department Care Team (Late st Contact Info) Description 12/01/2021 Documentation Only [facility] [place], [address] [place] [address] Gabriela Ragsdale [address] [place] [address] Social History Tobacco Use Types [...] on filedocumented in this encounter Care Teams Printing Press Operator Relationship Specialty Start Date End Date Kaye Talavera MD [address] [place], [place] PCP - General Internal Medicine 12/24/19 documented as of this encounter
--- OUTSIDE RECORDS SUMMARY | 2025-07-21 19:05 | XMS_ITS | Encounter Summary ---
Author Organization [facility] Address [address] [place] [address] Phone Care Team Providers Care Associate Agent Insurance Sales Name Role Phone Kaye Talavera MD Primary Care Provider +1- [phone] Encounter Details Date Type Department Care Team (Late st Contact Info) Description 01/28/2023 Documentation Only [facility] [place], [address] [place] [address] Gabriela Ragsdale [address] [place] [address] Social History Tobacco Use Types [...] on filedocumented in this encounter Care Teams Associate Agent Insurance Sales Relationship Specialty Start Date End Date Kaye Talavera MD [address] [place], [place] PCP - General Internal Medicine 12/24/19 documented as of this encounter
--- OUTSIDE RECORDS SUMMARY | 2025-07-21 19:05 | XMS_ITS | Encounter Summary ---
Author Organization [facility], Address [address] [place] [address] Phone Care Team Providers Care Glue Maker Bone Name Role Phone Kaye Talavera MD Primary Care Provider +1- [phone] Encounter Details Date Type Department Care Team (Latest Contact Info) Description 08/12/2020 Orders Only [facility] [address] [place] [phone] Saulo Garcia MD Chronic kidney disease stage 3; Anemia in chronic kidney disease; History of [...] Date/Time Associated Diagnosis Comments LIPID PANEL Routine 11/29/2020 12:52 PM EDT Chronic kidney disease stage 3 Anemia in chronic kidney disease History of renal transplant SLE glomerulonephritis syndrome (HCC) Congenital iodine-deficiency syndrome, mixed type documented in this encounter Results * Lipid panel (11/29/2020 12:52 PM EDT) Cholesterol, Total 187 (<200) MG/DL [facility] Triglycerides 111 (<150) MG/DL [facility] HDL 66 (>39) MG/DL [facility] LDL Calculated 99 (0-130) MG/DL [facility] Non HDL Cholesterol 121 (<160) MG/DL [facility] Comment: Testing performed or reported by [facility], a Service of [facility], [address] [place] [address] Bel Mora MD, Outsole Splicer Blood specimen (specimen) Venous blood / Unknown 11/29/2020 12:52 PM EDT 11/29/2020 12:53 PM EDT us Saulo Garcia MD LAB BLOOD ORDERABLES Final Res ult [facility] documented in this encounter Visit Diagnoses Diagnosis Chronic kidney disease stage 3 (HCC) Anemia in chronic kidney disease History of renal transplant SLE glomerulonephritis syndrome (HCC) Congenital iodine-deficiency syndrome, mixed type documented in this encounter Care Teams Glue Maker Bone Relationship Specialty Start Date End Date Kaye Talavera MD [address] [place], [place] PCP - General Internal Medicine 12/24/19 documented as of this encounter
--- OUTSIDE RECORDS SUMMARY | 2025-07-21 19:05 | XMS_ITS | Encounter Summary ---
Author Organization [facility] Address [address] [place] [address] Phone Care Team Providers Care Risk Management Professional Name Role Phone Kaye Talavera MD Primary Care Provider +1- [phone] Reason for Visit * Reason Comments Med Change Request Encounter Details Date Type Department Care Team (Late st Contact Info) Description 12/12/2021 Refill [facility] [place], [address] [place] [address] Saulo Garcia MD Social History Tobacco Use [...] on filedocumented in this encounter Care Teams Risk Management Professional Relationship Specialty Start Date End Date Kaye Talavera MD [address] [place], [place] PCP - General Internal Medicine 12/24/19 documented as of this encounter
--- OUTSIDE RECORDS SUMMARY | 2025-07-21 19:05 | XMS_ITS | Encounter Summary ---
Author Organization [facility] Address [address] [place] [address] Phone Care Team Providers Care Mechanical Maintenance Foreman Name Role Phone Kaye Talavera MD Primary Care Provider +1- [phone] Encounter Details Date Type Department Care Team (Late st Contact Info) Description 11/25/2023 Documentation Only [facility] [place], [address] [place] [address] [facility] [place], [place] [address] [place] [address] Social History Tobacco Use Types [...] on filedocumented in this encounter Care Teams Mechanical Maintenance Foreman Relationship Specialty Start Date End Date Kaye Talavera MD [address] [place], [place] PCP - General Internal Medicine 12/24/19 documented as of this encounter
--- OUTSIDE RECORDS SUMMARY | 2025-07-21 19:05 | XMS_ITS | Encounter Summary ---
Author Organization [facility] Address [address] [place] [address] Phone Care Team Providers Care Vending Machine Assembler Name Role Phone Kaye Talavera MD Primary Care Provider +1- [phone] Encounter Details Date Type Department Care Team (Late st Contact Info) Description 12/15/2021 Documentation Only [facility] [place], [address] [place] [address] Gabriela Ragsdale [address] [place] [address] Social History Tobacco Use Types [...] on filedocumented in this encounter Care Teams Vending Machine Assembler Relationship Specialty Start Date End Date Kaye Talavera MD [address] [place], [place] PCP - General Internal Medicine 12/24/19 documented as of this encounter
--- OUTSIDE RECORDS SUMMARY | 2025-07-21 19:05 | XMS_ITS | Encounter Summary ---
Author Organization [facility] Address [address] [place] [address] Phone Care Team Providers Care Meat Processor Name Role Phone Kaye Talavera MD Primary Care Provider +1- [phone] Encounter Details Date Type Department Care Team (Late st Contact Info) Description 01/09/2023 Documentation Only [facility] [place], [address] [place] [address] Gabriela Ragsdale [address] [place] [address] Social History Tobacco Use Types [...] on filedocumented in this encounter Care Teams Meat Processor Relationship Specialty Start Date End Date Kaye Talavera MD [address] [place], [place] PCP - General Internal Medicine 12/24/19 documented as of this encounter
--- OUTSIDE RECORDS SUMMARY | 2025-07-21 19:05 | XMS_ITS | Encounter Summary ---
Author Organization [facility] Address [address] [place] [address] Phone Care Team Providers Care Dentist/Owner Name Role Phone Kaye Talavera MD Primary Care Provider +1- [phone] Encounter Details Date Type Department Care Team (Late st Contact Info) Description 11/06/2022 Documentation Only [facility] [place], [address] [place] [address] Gabriela Ragsdale [address] [place] [address] Social History Tobacco Use Types [...] on filedocumented in this encounter Care Teams Dentist/Owner Relationship Specialty Start Date End Date Kaye Talavera MD [address] [place], [place] PCP - General Internal Medicine 12/24/19 documented as of this encounter
--- OUTSIDE RECORDS SUMMARY | 2025-07-21 19:05 | XMS_ITS | Encounter Summary ---
Author Organization [facility] Address [address] [place] [address] Phone Care Team Providers Care Operations Officer Name Role Phone Kaye Talavera MD Primary Care Provider +1- [phone] Encounter Details Date Type Department Care Team (Late st Contact Info) Description 07/27/2024 Documentation Only [facility] [place], [address] [place] [address] [place], [place] [address] [place] [address] Social History Tobacco Use Types [...] on filedocumented in this encounter Care Teams Operations Officer Relationship Specialty Start Date End Date Kaye Talavera MD [address] [place], [place] PCP - General Internal Medicine 12/24/19 documented as of this encounter
--- OUTSIDE RECORDS SUMMARY | 2025-07-21 19:05 | XMS_ITS | Encounter Summary ---
Author Organization [facility] Address [address] [place] [address] Phone Care Team Providers Care Supervisor Sewer System Name Role Phone Kaye Talavera MD Primary Care Provider +1- [phone] Encounter Details Date Type Department Care Team (Late st Contact Info) Description 02/12/2024 Documentation Only [facility] [place], [address] [place] [address] [place], [place] [address] [place] [address] Social History Tobacco Use Types [...] on filedocumented in this encounter Care Teams Supervisor Sewer System Relationship Specialty Start Date End Date Kaye Talavera MD [address] [place], [place] PCP - General Internal Medicine 12/24/19 documented as of this encounter
--- OUTSIDE RECORDS SUMMARY | 2025-07-21 19:05 | XMS_ITS | Encounter Summary ---
Author Organization [facility] Address [address] [place] [address] Phone Care Team Providers Care Obstetrics/Gynecology Nurse Name Role Phone Kaye Talavera MD Primary Care Provider +1- [phone] Encounter Details Date Type Department Care Team (Late st Contact Info) Description 12/20/2021 Documentation Only [facility] [place], [address] [place] [address] Gabriela Ragsdale [address] [place] [address] Social History Tobacco Use Types [...] on filedocumented in this encounter Care Teams Obstetrics/Gynecology Nurse Relationship Specialty Start Date End Date Kaye Talavera MD [address] [place], [place] PCP - General Internal Medicine 12/24/19 documented as of this encounter
--- OUTSIDE RECORDS SUMMARY | 2025-07-21 19:05 | XMS_ITS | Encounter Summary ---
Author Organization [facility], Address [address] [place] [address] Phone Care Team Providers Care Pattern Cutter Name Role Phone Kaye Talavera MD Primary Care Provider +1- [phone] Encounter Details Date Type Department Care Team (Late st Contact Info) Description 12/19/2020 Orders Only [facility] [address] [place] [address] Saulo Garcia MD Anemia in chronic kidney disease; History of renal transplant; Essential hypertension; 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); Pyonephrosis; Stage 3a chronic kidney disease (HCC) Social History Tobacco Use Types Packs/Day Years [...] as of this encounter Visit Diagnoses Diagnosis Anemia in chronic kidney disease History of renal transplant Essential hypertension 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) Pyonephrosis Stage 3a chronic kidney disease (HCC) documented in this encounter Care Teams Pattern Cutter Relationship Specialty Start Date End Date Kaye Talavera MD [address] [place], [place] PCP - General Internal Medicine 12/24/19 documented as of this encounter
--- OUTSIDE RECORDS SUMMARY | 2025-07-21 19:05 | XMS_ITS | Encounter Summary ---
Author Organization [facility], Address [address] [place] [address] Phone Care Team Providers Care Fabrication Mig Welder Name Role Phone Kaye Talavera MD Primary Care Provider +1- [phone] Encounter Details Date Type Department Care Team (Latest Contact Info) Description 03/02/2020 Orders Only [facility] [address] [place] [address] Saulo Garcia MD Chronic kidney disease stage [...] on file Sexual Orientation Not on file COVID-19 Exposure Response Date Recorded In the last month, have you been in contact with someone who was confirmed or suspected to have Coronavirus / COVID-19? No / Unsure 03/02/2020 11:18 AM EDT documented as of this encounter Plan of Treatment Not on file documented as of this encounter Procedures Procedure Name Priority Date/Time Associated Diagnosis Comments LIPID PANEL Routine 04/05/2020 11:25 AM EDT Chronic kidney disease stage 3 (HCC) Anemia in chronic kidney disease History of renal transplant SLE glomerulonephritis syndrome (HCC) Congenital iodine-deficiency syndrome, mixed type documented in this encounter Results * Lipid panel (04/05/2020 11:25 AM EDT) Cholesterol, Total 172 (<200) MG/DL [facility] Triglycerides 133 (<150) MG/DL [facility] HDL 51 (>39) MG/DL [facility] LDL Calculated 94 (0-130) MG/DL [facility] Non HDL Cholesterol 121 (<160) MG/DL [facility] Comment: Testing performed or reported by [facility], a Service of [facility], [address] [place] [address] Bel Mora MD, Interactive Producer Blood specimen (specimen) Venous blood / Unknown 04/05/2020 11:25 AM EDT 04/05/2020 11:33 AM EDT us Saulo Garcia MD LAB BLOOD ORDERABLES Final Res ult [facility] documented in this encounter Visit Diagnoses Diagnosis Chronic kidney disease stage 3 (HCC) Anemia in chronic kidney disease History of renal transplant SLE glomerulonephritis syndrome (HCC) Congenital iodine-deficiency syndrome, mixed type documented in this encounter Care Teams Fabrication Mig Welder Relationship Specialty Start Date End Date Kaye Talavera MD [address] [place], [place] PCP - General Internal Medicine 12/24/19 documented as of this encounter
--- OUTSIDE RECORDS SUMMARY | 2025-07-21 19:05 | XMS_ITS | Encounter Summary ---
Author Organization [facility] Address [address] [place] [address] Phone Care Team Providers Care Programs Director Name Role Phone Kaye Talavera MD Primary Care Provider +1- [phone] Encounter Details Date Type Department Care Team (Late st Contact Info) Description 07/03/2022 Orders Only [facility] [place], [address] [place] [address] Saulo Garcia MD Precordial pain Social History Tobacco Use Types Packs/Day Years [...] as of this encounter Visit Diagnoses Diagnosis Precordial pain documented in this encounter Care Teams Programs Director Relationship Specialty Start Date End Date Kaye Talavera MD [address] [place], [place] PCP - General Internal Medicine 12/24/19 documented as of this encounter
--- OUTSIDE RECORDS SUMMARY | 2025-07-21 19:05 | XMS_ITS | Encounter Summary ---
Author Organization [facility] [place], Address [address] [address] Phone Care Team Providers Care Meter Reading Clerk Name Role Phone Kaye Talavera MD Primary Care Provider +1- [phone] Reason for Visit * Reason Comments Med Change Request Encounter Details Date Type Department Care Team ([facility] st Contact Info) Description 05/04/2022 Refill [facility] [place], [address] [address] Bertin Khoury MD [address] [facility] [address] [place] [address] Social History Tobacco Use Types [...] on filedocumented in this encounter Care Teams Meter Reading Clerk Relationship Specialty Start Date End Date Kaye Talavera MD [address] [place], [place] PCP - General Internal Medicine 12/24/19 documented as of this encounter
--- OUTSIDE RECORDS SUMMARY | 2025-07-21 19:05 | XMS_ITS | Encounter Summary ---
Author Organization [facility] [place], Address [address] [address] Phone Care Team Providers Care Electronics Research Engineer Name Role Phone Kaye Talavera MD Primary Care Provider +1- [phone] Reason for Visit * Reason Comments Med Change Request Encounter Details Date Type Department Care Team ([facility] st Contact Info) Description 06/03/2022 Refill [facility] [place], [address] [place] [phone] Bertin Khoury MD [address] [facility] [place] [address] Social History Tobacco Use Types [...] on filedocumented in this encounter Care Teams Electronics Research Engineer Relationship Specialty Start Date End Date Kaye Talavera MD [address] [place], [place] PCP - General Internal Medicine 12/24/19 documented as of this encounter
--- OUTSIDE RECORDS SUMMARY | 2025-07-21 19:05 | XMS_ITS | Encounter Summary ---
Author Organization [facility] [place], Address [address] [facility] [address] [place] [address] Phone Care Team Providers Care Button Facing Machine Operator Name Role Phone Kaye Talavera MD Primary Care Provider +1- [phone] Encounter Details Date Type Department Care Team ([facility] st Contact Info) Description 06/22/2025 Documentation Only [facility] [place], [address] [place] [address] Bertin Khoury MD [address] [facility] [place] [address] Social History Tobacco Use Types Packs/Day Years [...] on filedocumented in this encounter Care Teams Button Facing Machine Operator Relationship Specialty Start Date End Date Kaye Talavera MD [address] [place], [place] PCP - General Internal Medicine 12/24/19 documented as of this encounter
--- OUTSIDE RECORDS SUMMARY | 2025-07-21 19:05 | XMS_ITS | Encounter Summary ---
Author Organization [facility] Address [address] [place] [address] Phone Care Team Providers Care Digital Media Analyst Name Role Phone Kaye Talavera MD Primary Care Provider +1- [phone] Encounter Details Date Type Department Care Team (Late st Contact Info) Description 05/09/2022 Documentation Only [facility] [place], [address] [place] [address] [place], [place] [address] [place] [address] Social History Tobacco Use Types [...] on filedocumented in this encounter Care Teams Digital Media Analyst Relationship Specialty Start Date End Date Kaye Talavera MD [address] [place], [place] PCP - General Internal Medicine 12/24/19 documented as of this encounter
--- OUTSIDE RECORDS SUMMARY | 2025-07-21 19:05 | XMS_ITS | Encounter Summary ---
Author Organization [facility] Address [address] [place] [address] Phone Care Team Providers Care Shipping Team Leader Name Role Phone Kaye Talavera MD Primary Care Provider +1- [phone] Encounter Details Date Type Department Care Team (Late st Contact Info) Description 02/12/2022 Documentation Only [facility] [place], [address] [place] [address] Gabriela Ragsdale [address] [place] [address] Social History Tobacco Use Types [...] on filedocumented in this encounter Care Teams Shipping Team Leader Relationship Specialty Start Date End Date Kaye Talavera MD [address] [place], [place] PCP - General Internal Medicine 12/24/19 documented as of this encounter
--- OUTSIDE RECORDS SUMMARY | 2025-07-21 19:05 | XMS_ITS | Encounter Summary ---
Author Organization [facility] [place], Address [address] [address] Phone Care Team Providers Care Cleaning Porter Name Role Phone Kaye Talavera MD Primary Care Provider +1- [phone] Reason for Visit * Reason Comments Med Change Request Encounter Details Date Type Department Care Team ([facility] st Contact Info) Description 06/18/2025 Refill [facility] [place], [address] [place] [phone] Bertin Khoury MD [address] [place] [address] Social History Tobacco Use Types [...] on filedocumented in this encounter Care Teams Cleaning Porter Relationship Specialty Start Date End Date Kaye Talavera MD [address] [place], [place] PCP - General Internal Medicine 12/24/19 documented as of this encounter
--- OUTSIDE RECORDS SUMMARY | 2025-07-21 19:05 | XMS_ITS | Encounter Summary ---
Author Organization [facility] [place], Address [address] [address] Phone Care Team Providers Care Elementary School Teacher Name Role Phone Kaye Talavera MD Primary Care Provider +1- [phone] Reason for Visit * Reason Comments Med Change Request Encounter Details Date Type Department Care Team ([facility] st Contact Info) Description 07/03/2022 Refill [facility] [place], [address] [place] [id number] Bertin Khoury MD [address] [place] [address] Social History Tobacco Use Types [...] on filedocumented in this encounter Care Teams Elementary School Teacher Relationship Specialty Start Date End Date Kaye Talavera MD [address] [place], [place] PCP - General Internal Medicine 12/24/19 documented as of this encounter
--- OUTSIDE RECORDS SUMMARY | 2025-07-21 19:05 | XMS_ITS | Encounter Summary ---
Author Organization [facility] Address [address] [place] [address] Phone Care Team Providers Care Home Demonstration Agent Name Role Phone Kaye Talavera MD Primary Care Provider +1- [phone] Reason for Visit * Reason Comments Med Change Request Encounter Details Date Type Department Care Team ([facility] st Contact Info) Description 11/27/2021 Refill [facility] [place], [address] [place] [phone] Saulo Garcia MD Social History Tobacco Use [...] on filedocumented in this encounter Care Teams Home Demonstration Agent Relationship Specialty Start Date End Date Kaye Talavera MD [address] [place], [place] PCP - General Internal Medicine 12/24/19 documented as of this encounter
--- OUTSIDE RECORDS SUMMARY | 2025-07-21 19:06 | XMS_ITS | Encounter Summary ---
Author Organization [facility] Address [address] [place] [address] Phone Care Team Providers Care Pattern Assembler Name Role Phone Kaye Talavera MD Primary Care Provider +1- [phone] Encounter Details Date Type Department Care Team (Late st Contact Info) Description 07/23/2023 Documentation Only [facility] [place], [address] [place] [address] Gabriela Ragsdale [address] [place] [address] Social History Tobacco Use Types [...] on filedocumented in this encounter Care Teams Pattern Assembler Relationship Specialty Start Date End Date Kaye Talavera MD [address] [place], [place] PCP - General Internal Medicine 12/24/19 documented as of this encounter
--- OUTSIDE RECORDS SUMMARY | 2025-07-21 19:06 | XMS_ITS | Encounter Summary ---
Author Organization [facility] Address [address] [place] [address] Phone Care Team Providers Care Safety Grooving Machine Operator Name Role Phone Kaye Talavera MD Primary Care Provider +1- [phone] Encounter Details Date Type Department Care Team (Late st Contact Info) Description 10/13/2021 Documentation Only [facility] [place], [address] [place] [address] Gabriela Ragsdale [address] [place] [address] Social History Tobacco Use Types [...] on filedocumented in this encounter Care Teams Safety Grooving Machine Operator Relationship Specialty Start Date End Date Kaye Talavera MD [address] [place], [place] PCP - General Internal Medicine 12/24/19 documented as of this encounter
--- OUTSIDE RECORDS SUMMARY | 2025-07-21 19:06 | XMS_ITS | Clinical Summary ---
Author Organization [facility] Address [address] [place] [address] Phone Care Team Providers Care Waistband Setter Lockstitch Name Role Phone Kaye Talavera MD Primary Care Provider +1- [phone] Allergies Active Allergy Reactions Criticality Noted Date [...] Insurance MEDICARE MEDICAID - [place] Care Teams Waistband Setter Lockstitch Relationship Specialty Start Date End Date Kaye Talavera MD [address] [place] [address] PCP - General 04/18/16
--- OUTSIDE RECORDS SUMMARY | 2025-07-21 19:06 | XMS_ITS | Encounter Summary ---
Author Organization [facility] Address [address] [place] [address] Phone Care Team Providers Care Software Educator Name Role Phone Kaye Talavera MD Primary Care Provider +1- [phone] Encounter Details Date Type Department Care Team (Late st Contact Info) Description 11/02/2021 Documentation Only [facility] [place], [address] [place] [address] Gabriela Ragsdale [address] [place] [address] Social History Tobacco Use Types [...] on filedocumented in this encounter Care Teams Software Educator Relationship Specialty Start Date End Date Kaye Talavera MD [address] [place], [place] PCP - General Internal Medicine 12/24/19 documented as of this encounter
--- OUTSIDE RECORDS SUMMARY | 2025-07-21 19:06 | XMS_ITS | Encounter Summary ---
Author Organization [facility] Address [address] [place] [address] Phone Care Team Providers Care Bail Bond Agent Name Role Phone Kaye Talavera MD Primary Care Provider +1- [phone] Encounter Details Date Type Department Care Team (Late st Contact Info) Description 10/08/2022 Documentation Only [facility] [place], [address] [place] [address] Gabriela Ragsdale [address] [place] [address] Social History Tobacco Use Types [...] on filedocumented in this encounter Care Teams Bail Bond Agent Relationship Specialty Start Date End Date Kaye Talavera MD [address] [place], [place] PCP - General Internal Medicine 12/24/19 documented as of this encounter
--- OUTSIDE RECORDS SUMMARY | 2025-07-21 19:06 | XMS_ITS | Clinical Summary ---
Author Organization [facility], Address [address] [place] [address] [place] [address] Phone Care Team Providers Care Assembly Supervisor Name Role Phone Kaye Talavera MD Primary Care Provider [phone]- [phone] Allergies Active Allergy Reactions Criticality Noted Date Comments Diphenhydramine Other (see comments) 10/18/2015 Lisinopril Other (see comments) 05/15/2010 Methylprednisolone Other (see comments) 016 Prochlorperazine Other (see comments) 7 Sirolimus Other (see comments) 09/11/2019 Sulfa Antibiotics Other (see comments) 09/17/19 07 Sulfamethoxazole-Trimethoprim Other (see comments) 09/17/2006 Vancomycin Other (see comments) 08/28/2000 Medications amoxicillin (AMOXIL) 500 MG capsule Take FOUR capsules by mouth one hour prior to dental procedure 30 capsule 1 11/28/19 22 Active pyridoxine (VITAMIN B-6) 100 MG tablet TAKE 1 TABLET BY MOUTH EVERY DAY 90 tablet 3 09/28/19 23 Active ergocalciferol 1.25 MG (73398 UT) capsule TAKE 1 CAPSULE (50,000 UNITS TOTAL) BY MOUTH ONCE WEEKLY 13 capsule 4 01/25/20 23 Active metoprolol succinate XL (TOPROL XL) 25 MG 24 hr tablet TAKE 1 TABLET BY MOUTH EVERY DAY 90 tablet 5 06/03/20 23 Active rivaroxaban (Xarelto) 15 MG tablet Take 1 tablet (15 mg total) by mouth 1 (one) time each day 90 tablet 3 02/13/20 24 Active HYDROcodone-aceta minophen ([place]) 10-325 MG per tablet Take 1 tablet by mouth 1 (one) time each day if needed for moderate pain Pt may take less if needed 30 tablet 05/29/20 24 Active mycophenolate (MYFORTIC) 180 MG EC tablet TAKE 3 TABLETS BY MOUTH IN THE MORNING AND 3 TABLETS IN THE EVENING. 540 tablet 3 07/23/20 24 Active levothyroxine (SYNTHROID, LEVOTHROID) 125 MCG tablet TAKE 1 TABLET BY MOUTH 1 TIME EACH DAY. 90 tablet 3 10/23/19 25 Active predniSONE 5 MG tablet Take 1 tablet (5 mg total) by mouth 2 (two) times a day if needed (asthma and lupus flare) 01/06/20 25 Active Belatacept (Nulojix) 250 MG reconstituted solution Inject 5 mg/kg as directed every 28 (twenty-eigh t) days Inject 5mg per kg every 28 days; pt wt 85.4 kg as of 03/05/25 2 each 11 03/17/20 25 026 Active albuterol HFA (Ventolin HFA) 108 (90 Base) MCG/ACT inhaler INHALE 2 PUFFS IN THE MORNING AND 2 PUFFS AT NOON AND 2 PUFFS IN THE EVENING AND 2 PUFFS BEFORE BEDTIME. 36 g 11 06/01/20 25 Active pravastatin (PRAVACHOL) 20 MG tablet TAKE 1 TABLET BY MOUTH EVERY DAY 90 tablet 3 06/01/20 25 Active meloxicam (MOBIC) 15 MG tablet TAKE HALF TABLETS (7.5 MG TOTAL) BY MOUTH 1 TIME EACH DAY 15 tablet 5 06/01/20 [address] Active [address] capsule Take 1 capsule (40 mg total) by mouth in the morning and 1 capsule (40 mg total) in the evening. Do not open capsule. 180 capsule 3 06/18/20 25 Active cyanocobalamin (VITAMIN B-12) 1000 MCG/ML injection Inject 1 mL (1,000 mcg total) into the shoulder, thigh, or buttocks every 30 (thirty) days 1 mL 06/18/20 25 026 Active fluticasone (FLONASE) 50 MCG/ACT nasal spray SPRAY TWO SPRAYS IN EACH NOSTRIL TWICE DAILY 96 mL 1 10/23/19 25 025 Discontinued Active Problems Problem Noted Date Diagnosed Date Personal history of immunosuppression therapy Asthma 07/15/2023 07/25/2023 Twitching eye 01/02/2023 Polymyalgia rheumatica 10/09/2022 Chronic fatigue syndrome 05/08/2022 Fibromyalgia 05/08/2022 Stage 3a chronic kidney disease 11/02/2021 Kidney replaced by transplant 09/11/2019 Essential hypertension 09/11/2019 Edema 09/11/2019 Anemia in chronic kidney disease 09/11/2019 Hypothyroidism 09/11/2019 Hyperlipidemia 09/11/2019 Hydronephrosis Pyelonephritis Systemic lupus erythematosus Urinary tract infection Encounters Date Type Department Care Team Description 06/24/2025 Orders Only [facility] [address] [place] [id number] Nasra Kennedy MA Kidney replaced by transplant (Primary Dx); Personal history of immunosuppression therapy; Stage 3a chronic kidney disease (HCC); Hypothyroidism, not otherwise specified; Hypomagnesemia; 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); History of renal transplant; Vitamin D deficiency, not otherwise specified; Idiopathic gout, not otherwise specified; Other iron deficiency anemia; Other specified hypoparathyroidism ([facility]); Albuminuria, not otherwise specified; Poor glycemic control 06/22/2025 Documentation Only [facility] [address] [place] [address] Bertin Khoury MD 06/18/2025 Orders Only [facility] [address] [place] [address] Nasra Kennedy MA 06/18/2025 Refill [facility] [address] [place] [address] Bertin Khoury MD 06/18/2025 Refill [facility] [address] [place] [address] Bertin Khoury MD 06/18/2025 Orders Only [facility] [address] [place] [address] Nasra Kennedy MA 05/31/2025 Refill [facility] [address] [place] [address] Bertin Khoury MD 05/22/2025 Refill [facility] [address] [place] [address] Bertin Khoury MD 05/06/2025 1:00 PM EDT Clinical Support [facility] [address] [place] [address] Maryanne Cuevas, CLINICAL TRIAL ASSOCIATE-[facility] Kidney replaced by transplant (Primary Dx); Personal history of immunosuppression therapy; Stage 3a chronic kidney disease (HCC); Hypothyroidism, not otherwise specified; Hypomagnesemia 04/28/2025 Orders Only [facility] [address] [place] [address] Nasra Kennedy MA Kidney replaced by transplant (Primary Dx); Personal history of immunosuppression therapy; Stage 3a chronic kidney disease (HCC); Hypothyroidism, not otherwise specified; 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); History of renal transplant; Other iron deficiency anemia; Other specified hypoparathyroidism (HCC); Albuminuria, not otherwise specified from Last 3 Months Immunizations Immunization Administration Dates Next Due Moderna SARS-COV-2 09/19/2021,,03/30/2021,02/17/2021,02/07 Pneumococcal Polysaccharide 10/01/2008, 9 Tdap 09/14/2010,09/14/2010 Family History Medical History Relation Comments Hypertension Father Heart disease Maternal Grandfather Diabetes Maternal Great-Grandmother Diabetes Mother Hypertension Mother Relation Status Comments Father Maternal Grandfather Maternal Great-Grandmother Mother Social History Tobacco Use Types Packs/Day Years Used Date Smoking Tobacco: Never Alcohol Use Standard Drinks/Week Comments No 0 (1 standard drink = 0.6 oz pur e alcohol) Comments Unknown Sex and Gender Information Value Date Recorded Sex Assigned at Not on file Legal Sex Female 4:34 PM EST Gender Identity Not on file Sexual Orientation Not on file Last Filed Vital Signs Vital Sign Reading Time Taken Comments Blood Pressure 140/85 05/06/2025 1:06 PM EDT Pulse 62 01/05/2025 9:51 AM EDT Temperature - - Respiratory Rate - - Oxygen Saturation - - Inhaled Oxygen Concentration - - Weight 85.4 kg (188 lb 3.2 oz) 03/05/2025 12:54 PM EDT Height 162.6 cm (5' 4 ) 07/14/2019 12:00 PM EST Body Mass Index 32.3 07/14/2019 12:00 PM EST Plan of Treatment Health Maintenance Due Date Last Done Comments Breast Cancer Screening 1965 Hepatitis B Vaccine (1 of 3 - 19+ 3-dose series) 1984 Pneumococcal Vaccine: 50+ Ye ars (3 of 3 - PCV) 10/01/2009 10/01/2008, 10/01/2008 Colonoscopy (Post-Transplant Patient) 04/20/2020 Mammogram (Post-Transplant Patient) 04/20/2020 Pelvic Exam (Post-Transplant Patient) 04/20/2020 Influenza Vaccine (#1) 2025 Pneumococcal Vaccine: Peds ( 0 to 5 Years) and At-Risk Patients (6 to 49 Years) Discontinued 10/01/2008, 10/01/2008 Procedures Procedure Name Priority Date/Time Associated Diagnosis Comments MAGNESIUM Routine 05/21/2025 11:08 AM EDT TSH Routine 05/21/2025 11:08 AM EDT URINALYSIS, COMPLETE Routine 05/21/2025 11:08 AM EDT Kidney replaced by transplant Personal history of immunosuppression therapy Stage 3a chronic kidney disease (HCC) Hypothyroidism, not otherwise specified 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) History of renal transplant Other iron deficiency anemia Other specified hypoparathyroidism (HCC) Albuminuria, not otherwise specified URINE ALBUMIN / CREATININE RATIO Routine 05/21/2025 11:08 AM EDT Kidney replaced by transplant Personal history of immunosuppression therapy Stage 3a chronic kidney disease (HCC) Hypothyroidism, not otherwise specified 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) History of renal transplant Other iron deficiency anemia Other specified hypoparathyroidism (HCC) Albuminuria, not otherwise specified PTH, INTACT Routine 05/21/2025 11:08 AM EDT Kidney replaced by transplant Personal history of immunosuppression therapy Stage 3a chronic kidney disease (HCC) Hypothyroidism, not otherwise specified 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) History of renal transplant Other iron deficiency anemia Other specified hypoparathyroidism (HCC) Albuminuria, not otherwise specified IRON PANEL (FE, TIBC, TSAT) Routine 05/21/2025 11:08 AM EDT Kidney replaced by transplant Personal history of immunosuppression therapy Stage 3a chronic kidney disease (HCC) Hypothyroidism, not otherwise specified 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) History of renal transplant Other iron deficiency anemia Other specified hypoparathyroidism (HCC) Albuminuria, not otherwise specified FERRITIN Routine 05/21/2025 11:08 AM EDT Kidney replaced by transplant Personal history of immunosuppression therapy Stage 3a chronic kidney disease (HCC) Hypothyroidism, not otherwise specified 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) History of renal transplant Other iron deficiency anemia Other specified hypoparathyroidism (HCC) Albuminuria, not otherwise specified CREATINE KINASE Routine 05/21/2025 11:08 AM EDT Kidney replaced by transplant Personal history of immunosuppression therapy Stage 3a chronic kidney disease (HCC) Hypothyroidism, not otherwise specified 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) History of renal transplant Other iron deficiency anemia Other specified hypoparathyroidism (HCC) Albuminuria, not otherwise specified ALT Routine 05/21/2025 11:08 AM EDT Kidney replaced by transplant Personal history of immunosuppression therapy Stage 3a chronic kidney disease (HCC) Hypothyroidism, not otherwise specified 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) History of renal transplant Other iron deficiency anemia Other specified hypoparathyroidism (HCC) Albuminuria, not otherwise specified AST Routine 05/21/2025 11:08 AM EDT Kidney replaced by transplant Personal history of immunosuppression therapy Stage 3a chronic kidney disease (HCC) Hypothyroidism, not otherwise specified 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) History of renal transplant Other iron deficiency anemia Other specified hypoparathyroidism (HCC) Albuminuria, not otherwise specified CBC AND DIFFERENTIAL Routine 05/21/2025 11:08 AM EDT Kidney replaced by transplant Personal history of immunosuppression therapy Stage 3a chronic kidney disease (HCC) Hypothyroidism, not otherwise specified 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) History of renal transplant Other iron deficiency anemia Other specified hypoparathyroidism (HCC) Albuminuria, not otherwise specified RENAL FUNCTION PANEL Routine 05/21/2025 11:08 AM EDT Kidney replaced by transplant Personal history of immunosuppression therapy Stage 3a chronic kidney disease (HCC) Hypothyroidism, not otherwise specified 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) History of renal transplant Other iron deficiency anemia Other specified hypoparathyroidism (HCC) Albuminuria, not otherwise specified MYCOPHENOLIC ACID AND METABO. Routine 05/21/2025 11:08 AM EDT Kidney replaced by transplant Personal history of immunosuppression therapy Stage 3a chronic kidney disease (HCC) Hypothyroidism, not otherwise specified 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) History of renal transplant Other iron deficiency anemia Other specified hypoparathyroidism (HCC) Albuminuria, not otherwise specified MICROSCOPIC EXAMINATION - DO NOT USE Routine 05/21/2025 11:08 AM EDT from Last 3 Months Results * TSH (05/21/2025 11:08 AM EDT) Pathologist [facility] TSH 0.597 0.450 - 4.500 uIU/mL [employer] 05/21/2025 11:0 8 AM EDT 05/21/2025 us Bertin Khoury MD LAB BLOOD ORDERABLES Final Result [facility] [address] [place] [address] * (ABNORMAL) Urinalysis, Complete w/reflex to Culture (05/21/2025 11:08 AM EDT) Pathologist [facility] Specific [place], Urine 1.018 1.005 - 1.030 [facility] pH Urine 6.0 5.0 - 7.5 [facility] Color, Urine Yellow Yellow [facility] Appearance Urine Clear Clear [facility] WBC Esterase Urine Negative Negative [facility] [phone] Protein, Ur 2+(A) Negative/Tra ce [facility] Glucose, Ur Negative Negative [facility] Ketones, Urine Negative Negative [facility] Blood Urine Negative Negative [facility] Bilirubin Urine Negative Negative [facility] Urobilinogen Urine 0.2 0.2 - 1.0 mg/dL [facility] [phone] Nitrite, Urine Negative Negative [facility] Microscopic Examination See below: [facility] Comment:Microscopic was soco cated and was performed. URINALYSIS REFLEX Comment [facility] Comment:This specimen will n ot reflex to a Urine Culture. Urine Urine specimen obtained by clean catch procedure / Unknown 05/21/2025 11:08 AM EDT 05/21/2025 us Bertin Khoury MD LAB URINE ORDERABLES Final Result [facility] [address] [place] [address] * Mycophenolic Acid and Metabo. (05/21/2025 11:08 AM EDT) Mycophenolic Acid 2.8 1.0 - 3.5 ug/mL [facility] Mycophenolic Acid Glucuronide 69 35 - 100 ug/mL [facility] Blood Venous blood / Unknown 05/21/2025 11:08 AM EDT 05/21/2025 Narrative [facility] - 05/24/2025 11:06 AM EDT Test(s) 413700-[id number] Acid; 198378- Mycophenolic Acid Glucuronide was developed and its performance characteristics determined by [facility]. It has not been cleared or approved by the Food and Drug Administration. Bertin Khoury MD LAB BLOOD ORDERABLES Final Result [facility] [address] [place] [address] * Microscopic Examination (05/21/2025 11:08 AM EDT) Pathologist [facility] WBC, Urine None seen 0 - 5 /hpf [facility] RBC, Urine None seen 0 - 2 /hpf [facility] [place] Squamous Epithelial, Urine None seen 0 - 10 /hpf [facility] None seen None seen /lpf [facility] Bacteria, Urine None seen None seen/Few [facility] 05/21/2025 11:0 8 AM EDT 05/21/2025 Bertin Khoury MD LAB MICROBIOLOGY - GENERAL ORDERABLES Final Result [facility] [address] [place] [address] * Iron Panel (Fe, TIBC, TSAT) (05/21/2025 11:08 AM EDT) Pathologist [facility] TIBC 299 250 - 450 ug/dL [facility] UIBC 242 131 - 425 ug/dL [facility] Iron 57 27 - 159 ug/dL [facility] Iron Saturation (TSat) 19 15 - 55 % [facility] Blood Venous blood / Unknown 05/21/2025 11:08 AM EDT 05/21/2025 Bertin Khoury MD LAB BLOOD ORDERABLES Final Result Performing Organization Address City/[facility]/ZIP Co de Phone Number [facility] [address] [place] [address] * (ABNORMAL) Urine Albumin / Creatinine Ratio (05/21/2025 11:08 AM EDT) Creatinine, Ur 117.8 Not Estab. mg/dL [facility] Albumin, Urine 374.7 Not Estab. ug/mL [facility] Albumin/Creatin ine Ratio 318(H) 0 - 29 mg/g creat [facility] Comment: Normal: 0 - 29 Moderately increased: 30 - 300 Severely increased: >300 Urine Urine specimen obtained by clean catch procedure / Unknown 05/21/2025 11:08 AM EDT 05/21/2025 Bertin Khoury MD LAB URINE ORDERABLES Final Result Performing Organization Address City/[facility]/ZIP Co de Phone Number [facility] [address] [place] [address] * (ABNORMAL) CBC and Differential (05/21/2025 11:08 AM EDT) WBC 6.3 3.4 - 10.8 x10E3/uL [facility] RBC 3.74(L) 3.77 - 5.28 x10E6/uL [facility] Hemoglobin 11.7 11.1 - 15.9 g/dL [facility] Hematocrit 36.2 34.0 - 46.6 % [facility] MCV 97 79 - 97 fL [facility] MCH 31.3 26.6 - 33.0 pg [facility] MCHC 32.3 31.5 - 35.7 g/dL [facility] RDW 13.0 11.7 - 15.4 % [facility] Platelets 181 150 - 450 x10E3/uL [facility] Neutrophils Relative 65 Not Estab. % [facility] Lymphocytes Relative 24 Not Estab. % [facility] Monocytes 7 Not Estab. % [facility] Eosinophils Relative 3 Not Estab. % [facility] Basophils Relative 1 Not Estab. % [facility] Neutrophils Absolute 4.2 1.4 - 7.0 x10E3/uL [facility] Lymphocytes Absolute 1.5 0.7 - 3.1 x10E3/uL [facility] Monocytes Absolute 0.4 0.1 - 0.9 x10E3/uL [facility] Eosinophils Absolute 0.2 0.0 - 0.4 x10E3/uL [facility] Basophils Absolute 0.0 0.0 - 0.2 x10E3/uL [facility] Immature Granulocytes 0 Not Estab. % [facility] Immature Grans (Absolute) 0.0 0.0 - 0.1 x10E3/uL [facility] Blood Venous blood / Unknown 05/21/2025 11:08 AM EDT 05/21/2025 us Bertin Khoury MD LAB BLOOD ORDERABLES Final Result [facility] [address] [place] [address] * ALT (05/21/2025 11:08 AM EDT) ALT (SGPT) 19 0 - 32 IU/L [facility] Blood Venous blood / Unknown 05/21/2025 11:08 AM EDT 05/21/2025 Bertin Khoury MD LAB BLOOD ORDERABLES Final Result Performing Organization Address City/[facility]/ZIP Co de Phone Number [facility] [address] [place] [address] * AST (05/21/2025 11:08 AM EDT) AST (SGOT) 20 0 - 40 IU/L [facility] Blood Venous blood / Unknown 05/21/2025 11:08 AM EDT 05/21/2025 Bertin Khoury MD LAB BLOOD ORDERABLES Final Result Performing Organization Address City/[facility]/ZIP Co de Phone Number [facility] [address] [place] [address] * PTH, Intact (05/21/2025 11:08 AM EDT) PTH 45 15 - 65 pg/mL [facility] Blood Venous blood / Unknown 05/21/2025 11:08 AM EDT 05/21/2025 Bertin Khoury MD LAB BLOOD ORDERABLES Final Result Performing Organization Address City/[facility]/ZIP Co de Phone Number [facility] [address] [place] [address] * Magnesium (05/21/2025 11:08 AM EDT) Magnesium 2.1 1.6 - 2.3 mg/dL [facility] 05/21/2025 11:0 8 AM EDT 05/21/2025 Bertin Khoury MD LAB BLOOD ORDERABLES Final Result [facility] [address] [place] [address] * (ABNORMAL) Ferritin (05/21/2025 11:08 AM EDT) Pathologist [facility] Ferritin 158(H) 15 - 150 ng/mL [facility] Blood Venous blood / Unknown 05/21/2025 11:08 AM EDT 05/21/2025 Bertin Khoury MD LAB BLOOD ORDERABLES Final Result Performing Organization Address City/[facility]/ZIP Co de Phone Number [facility] [address] [place] [address] * CK (05/21/2025 11:08 AM EDT) Pathologist [facility] Creatine Kinase (CK/CPK) 89 32 - 182 U/L [facility] Blood Venous blood / Unknown 05/21/2025 11:08 AM EDT 05/21/2025 Bertin Khoury MD LAB BLOOD ORDERABLES Final Result Performing Organization Address City/[facility] Co de Phone Number [facility] [address] [place] [address] * (ABNORMAL) Renal Function Panel (05/21/2025 11:08 AM EDT) Pathologist [facility] Glucose 96 70 - 99 mg/dL [facility] BUN 26(H) 6 - 24 mg/dL [facility] Creatinine 1.36(H) 0.57 - 1.00 mg/dL [facility] eGFR CKD-EPI CR 2020 45(L) >59 mL/min/1.7 3 [facility] BUN/Creatinine Ratio 19 9 - 23 [facility] Sodium 140 134 - 144 mmol/L [facility] Potassium 4.3 3.5 - 5.2 mmol/L [facility] Chloride 108(H) 96 - 106 mmol/L [facility] Bicarbonate (CO2) 21 20 - 29 mmol/L [facility] Calcium 9.9 8.7 - 10.2 mg/dL [facility] Albumin 4.2 3.8 - 4.9 g/dL [facility] Phosphorus 3.1 3.0 - 4.3 mg/dL [facility] Blood Venous blood / Unknown 05/21/2025 11:08 AM EDT 05/21/2025 Bertin Khoury MD LAB BLOOD ORDERABLES Final Result [facility] [address] [place] [address] from Last 3 Months Insurance [place] Care Teams Assembly Supervisor Relationship Specialty Start Date End Date Kaye Talavera MD [address], [place] PCP - General Internal Medicine 12/24/19
--- OUTSIDE RECORDS SUMMARY | 2025-07-21 19:06 | XMS_ITS | Encounter Summary ---
Author Organization [facility] Address [address] [place] [address] Phone Care Team Providers Care Developmental Education Instructor Name Role Phone Kaye Talavera MD Primary Care Provider +1- [phone] Reason for Visit * Reason Comments Med Change Request Encounter Details Date Type Department Care Team ([facility] st Contact Info) Description 06/27/2023 Refill [facility] [place], [address] [place] [id number] Saulo Garcia MD Social History Tobacco Use [...] on filedocumented in this encounter Care Teams Developmental Education Instructor Relationship Specialty Start Date End Date Kaye Talavera MD [address] [place], [place] PCP - General Internal Medicine 12/24/19 documented as of this encounter
--- OUTSIDE RECORDS SUMMARY | 2025-07-21 19:06 | XMS_ITS | Encounter Summary ---
Author Organization [facility] Address [address] [place] [address] Phone Care Team Providers Care Family Consumer Science Teacher Name Role Phone Kaye Talavera MD Primary Care Provider +1- [phone] Encounter Details Date Type Department Care Team (Late st Contact Info) Description 08/08/2022 Documentation Only [facility] [place], [address] [place] [address] Gabriela Ragsdale [address] [place] [address] Social History Tobacco Use Types [...] on filedocumented in this encounter Care Teams Family Consumer Science Teacher Relationship Specialty Start Date End Date Kaye Talavera MD [address] [place], [place] PCP - General Internal Medicine 12/24/19 documented as of this encounter
== END 2025-07-21 16:29 | disposition home or self-care (01) ==
LOC: HO.XRAY 16:28
PROVIDERS: PCP Internal Medicine; Visit Provider Internal Medicine
DX: M54.2 Cervicalgia (principal)
CPT/HCPCS: 72050

== ENCOUNTER → 2025-07-21 16:33 | Outpatient (BNV) | payer MEDICARE, MEDICAID, SELFPAY | PROVIDERS: PCP Internal Medicine; Visit Provider Radiology Diagnostic Ultrasound | DX: M47.812 Spondylosis without myelopathy or radiculopathy, cervical region (principal) | CPT/HCPCS: 72050 ==

== ENCOUNTER 2025-08-12 10:44 | Outpatient (AMB) | payer MEDICARE, MEDICAID, SELFPAY ==
--- OUTSIDE RECORDS SUMMARY | 2025-08-04 11:30 | XMS_ITS | Encounter Summary ---
Author Organization [facility], Address [address] [address] Phone Care Team Providers Care Director Of Nurses Registry Name Role Phone Kaye Talavera MD Primary Care Provider +1- [phone] Encounter Details Date Type Department Care Team (Latest Contact Info) Description 08/04/2025 11:30 AM EST Office Visit [facility] [address] [place] [phone] Bertin Khoury MD [address] [place] [address] [place] [phone] Kidney replaced by transplant (Primary Dx); Personal history of immunosuppression therapy; Stage 3a chronic kidney disease (HCC); Other cystitis without hematuria, not otherwise specified Social History Tobacco Use Types Packs/Day Years [...] on file documented as of this encounter H&P Notes * Bertin Khoury MD - 08/04/2025 11:30 AM EST Images from the original note were not included. PATIENT: Tamar Singh : 1965 ENCOUNTER: 08/04/2025 PCP: Kaye Talavera MD Tamar Singh is a 60 y.o. year old patient with a history of ESRD and is s/p kidney transplantation presenting for routine transplant follow up. 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 Donor: DD DOT: 06/22/2011 Immunosuppression: Belatacept and MMF CNI toxicity (biopsy 06/07/2015) In the interval since our last visit I have had the opportunity to review the following, if available: -laboratory data, imaging studies, and cardiovascular data -current medications from the patient; any changes from previous (including information from the patient's pharmacy, [facility], and Care Everywhere) -Transplant Data Sheet During this visit I had the opportunity for a full review of systems and limited physical exam as outlined below, with the pertinent findings noted and others found to be negative or noncontributory to the current assessment of this patient. INTERIM HISTORY: I had the pleasure of seeing your patient in follow up regarding their kidney transplant. Allow me to summarize the for you. Since the last visit, the patient has developed new symptoms including flank pain and bubbles in her urine. She has worsening neck pain and arthritis and is scheduled for physical therapy. Her blood pressure was elevated at 150/76. She reports that her Prilosec is not working for reflux and only Nexium is effective, and she has been experiencing bloating. She was recentlytold her cholesterol was high and was started on atorvastatin 10 mg. Her most recent labs in May showed stable creatinine at 1.3 mg/dL with chronic mild proteinuria (microalbumin-creatinine ratio of 318). ROS: The patient reports flank pain, bubbles in urine, neck pain with worsening arthritis, multiplesomatic complaints, reflux symptoms with Prilosec ineffectiveness, and bloating. No other specific review of systems was documented. GENERAL MEDICAL HISTORY: Patient Active Problem List Diagnosis Date Noted ??? Personal history of immunosuppression therapy 09/18/2023 ??? Asthma 07/15/2023 ??? Twitching eye 01/02/2023 ??? Polymyalgia rheumatica (HCC) 10/09/2022 ??? Chronic fatigue syndrome 05/08/2022 ??? Fibromyalgia 05/08/2022 ??? Stage 3a chronic kidney disease (HCC) 11/02/2021 ??? Hydronephrosis ??? Pyelonephritis ??? Systemic lupus erythematosus (HCC) ??? Urinary tract infection ??? Kidney replaced by transplant 09/11/2019 ??? Essential hypertension 09/11/2019 ??? Edema 09/11/2019 ??? Anemia in chronic kidney disease 09/11/2019 ??? Hypothyroidism 09/11/2019 ??? Hyperlipidemia 09/11/2019 MEDICATIONS: Outpatient Encounter Medications as of 08/04/2025 Medication Sig Dispense Refill ??? mycophenolate (MYFORTIC) 180 MG EC tablet TAKE 3 TABLETS BY MOUTH IN THE MORNING AND 3 TABLETS IN THE EVENING. 540 tablet 3 ??? NexIUM [address] capsule Take 1 capsule (40 mg total) by mouth in the morning and 1 capsule (40 mg total) in the evening. Do not open capsule. 180 capsule 3 ??? albuterol HFA (Ventolin HFA) 108 (90 Base) MCG/ACT inhaler INHALE 2 PUFFS IN THE MORNING AND 2 PUFFS AT NOON AND 2 PUFFS IN THE EVENING AND 2 PUFFS BEFORE BEDTIME. 36 g 11 ??? amoxicillin (AMOXIL) 500 MG capsule Take FOUR capsules by mouth one hour prior to dental procedure 30 capsule 1 ??? Belatacept (Nulojix) 250 MG reconstituted solution Inject 5 mg/kg as directed every 28 (twenty-eight) days Inject 5mg per kg every 28 days; pt wt 85.4 kg as of 03/05/25 2 each 11 ??? cyanocobalamin (VITAMIN B-12) 1000 MCG/ML injection Inject 1 mL (1,000 mcg total) into the shoulder, thigh, or buttocks every 30 (thirty) days 1 mL 11 ??? ergocalciferol 1.25 MG (60927 UT) capsule TAKE 1 CAPSULE (50,000 UNITS TOTAL) BY MOUTH ONCE WEEKLY 13 capsule 4 ??? HYDROcodone-acetaminophen (Sterling) 10-325 MG per tablet Take 1 tablet by mouth 1 (one) time eachday if needed for moderate pain Pt may take less if needed 30 tablet 0 ??? levothyroxine (SYNTHROID, LEVOTHROID) 125 MCG tablet TAKE 1 TABLET BY MOUTH 1 TIME EACH DAY. 90tablet 3 ??? meloxicam (MOBIC) 15 MG tablet TAKE HALF TABLETS (7.5 MG TOTAL) BY MOUTH 1 TIME EACH DAY 15 tablet 5 ??? metoprolol succinate XL (TOPROL XL) 25 MG 24 hr tablet TAKE 1 TABLET BY MOUTH EVERY DAY 90 tablet 5 ??? pravastatin (PRAVACHOL) 20 MG tablet TAKE 1 TABLET BY MOUTH EVERY DAY 90 tablet 3 ??? predniSONE 5 MG tablet Take 1 tablet (5 mg total) by mouth 2 (two) times a day if needed (asthma and lupus flare) ??? pyridoxine (VITAMIN B-6) 100 MG tablet TAKE 1 TABLET BY MOUTH EVERY DAY 90 tablet 3 ??? rivaroxaban (Xarelto) 15 MG tablet Take 1 tablet (15 mg total) by mouth 1 (one) time each day 90 tablet 3 ??? [DISCONTINUED] fluticasone (FLONASE) 50 MCG/ACT nasal spray SPRAY TWO SPRAYS IN EACH NOSTRIL TWICE DAILY 96 mL 1 ??? [DISCONTINUED] mycophenolate (MYFORTIC) 180 MG EC tablet TAKE 3 TABLETS BY MOUTH IN THE MORNINGAND 3 TABLETS IN THE EVENING. 540 tablet 3 ??? [DISCONTINUED] NexIUM [address] capsule Take 1 capsule (40 mg total) by mouth in the morning and1 capsule (40 mg total) in the evening. Do not open capsule. 180 capsule 3 No facility-administered encounter medications on file as of 08/04/2025. PHYSICAL EXAM: Focused Physical Exam: Vital signs: Blood pressure elevated at 150/76. Cardiovascular: Heart rate and rhythm are normal. No murmurs, gallops, or rubs. Respiratory: No signs of respiratory distress. Abdomen: Abdomen soft and lax without tenderness; allograft nontender. Extremities: no lower extremity edema. Labs and data review: Interim labs and available data reviewed and discussed with the patient. LABS: Chemistry Lab Units 05/21/25 1108 03/26/25 1108 10/13/24 1242 06/15/24 1115 02/21/24 1432 11/25/23 1059 09/20/23 1111 09/20/23 1110 CREATININE mg/dL 1.36* 1.33* 1.25* 1.21* 1.43* 1.30* < > 1.3* BUN mg/dL 26* 28* 15 24 22 23 < > 27* POTASSIUM mmol/L 4.3 4.6 4.4 4.9 4.9 4.9 < > 4.8 SODIUM mmol/L 140 138 142 143 140 140 < > 139 CO2 mmol/L 21 19* 20 18* 18* 19* < > 24 CHLORIDE mmol/L 108* 106 107* 110* 108* 109* < > 106 ALBUMIN g/dL 4.2 4.1 4.0 4.0 4.0 4.0 < > 4.0 EGFRNAFR ML/MIN/1.73 M2 -- -- -- -- -- -- -- 46 HEMOGLOBIN A1C % -- -- -- 5.6 5.6 -- -- -- WBC AUTO x10E3/uL 6.3 6.7 5.9 5.9 6.3 5.6 < > -- HEMATOCRIT % 36.2 34.6 35.3 36.8 34.7 35.5 < > -- HEMOGLOBIN g/dL 11.7 11.3 11.3 11.7 11.1 11.6 < > -- PLATELETS AUTO x10E3/uL 181 179 193 191 184 176 < > -- < > = values in this interval not displayed. Bone Mineral Lab Units 05/21/25 1108 03/26/25 1108 10/13/24 1242 06/15/24 1115 02/21/24 1432 11/25/23 1059 CALCIUM mg/dL 9.9 9.8 9.9 10.1 9.6 10.1 PHOSPHORUS mg/dL 3.1 3.3 3.2 3.4 3.8 3.6 PTH pg/mL 45 57 -- 49 -- -- VIT D 25 HYDROXY ng/mL -- -- -- 30.6 -- -- Urine Lab Units 05/21/25 1108 03/26/25 1108 10/13/24 1242 06/15/24 1115 02/21/24 1432 11/25/23 1058 09/20/23 1111 PROT/CREAT RATIO UR mg/g creat -- -- 730* 468* 575* 580* 0.44* ALB MG/G CREAT UR mg/g creat 318* 286* -- -- -- -- -- Visit Diagnoses and Active Issues: 1. Kidney replaced by transplant 2. Personal history of immunosuppression therapy 3. Stage 3a chronic kidney disease (HCC) 4. Other cystitis without hematuria, not otherwise specified BRIEF VISIT SUMMARY: Routine follow-up for 60-year-old woman with kidney transplant (2010) on belatacept and mycophenolate immunosuppression. Patient reports flank pain and bubbles in urine. Blood pressure elevated at 150/76. Recent creatinine stable at 1.3 mg/dL with chronic mild proteinuria (microalbumin-creatinine ratio 318). High cholesterol diagnosed, started on atorvastatin 10 mg. Patient reports Prilosec ineffective for reflux, prefers Nexium. Also experiencing bloating and neck pain with arthritis. Based onthe above history and clinical findings, my interpretation of the available data, and medication review, the following changes and/or recommendations for further testing, monitoring, treatment options, and follow-up are provided for your review: ASSESSMENT/PLANS/RECOMMENDATIONS: 1. Allograft function: Recent creatinine stable at 1.3 mg/dL with chronic mild proteinuria (microalbumin-creatinine ratio 318). We will continue to monitor the kidney function and discuss risk factors for progression of CKD and how to mitigate the risk through lifestyle and medications. 2. Immunosuppression: Currently maintained on belatacept and mycophenolate. We will continue to review and adjust the immunosuppression regimen, making changes according to clinical status and drug levels where appropriate. 3. Blood pressure and volume status: Blood pressure elevated at 150/76 in office. Continue to monitor blood pressure and maintain a low sodium diet; continue compliance with medications and diet; monitor weight as appropriate. Home blood pressure monitoring suggested. 4. Hematologic issues: We will continue to monitor the hematologic parameters, including CBC and iron studies periodically, and make adjustments in therapy as needed. 5. Metabolic parameters: Metabolic parameters stable. We will continue to monitor labs periodicallyand adjust management accordingly. 6. Other active issues: Started atorvastatin 10 mg for high cholesterol with plan to follow cholesterol levels with next labs. Urinalysis and urine culture ordered due to urinary symptoms to rule outinfection. Physical therapy scheduled for neck pain and arthritis. 8-week follow-up scheduled. I thank you kindly for allowing me to participate in your patient's care. Active issues were addressed and the patient's questions were answered. Appropriate referrals, follow up testing, and appointments were scheduled accordingly. I will continue to monitor the active and chronic renal issues andmake changes or suggestions based on their clinical status. I will keep you informed of their condition. Orders Placed This Encounter ??? Urinalysis with microscopic ??? Urine culture ??? NexIUM [address] capsule ??? mycophenolate (MYFORTIC) 180 MG EC tablet documented in this encounter Plan of Treatment Upcoming Encounters Date Type Department Care Team (Late st Contact Info) Description 10/08/2025 11:45 AM EST Office Visit [facility] [address] [place] [address] Bertin Khoury MD [address] [place] [address] [place] [phone] Scheduled Orders Name Type Priority Associated Diagnoses Orde r Schedule Urinalysis with microscopic Lab Routine Kidney replaced by transplant Personal history of immunosuppression therapy Stage 3a chronic kidney disease (HCC) Other cystitis without hematuria, not otherwise specified Expected: 08/04/2025, Expires: 09/03/2026 Urine culture Lab Routine Kidney replaced by transplant Personal history of immunosuppression therapy Stage 3a chronic kidney disease (HCC) Other cystitis without hematuria, not otherwise specified Expected: 08/04/2025, Expires: 09/03/2026 documented as of this encounter Visit Diagnoses Diagnosis Kidney replaced by transplant- Primary Personal history of immunosuppression therapy Stage 3a chronic kidney disease (HCC) Other cystitis without hematuria, not otherwise specified documented in this encounter Care Teams Director Of Nurses Registry Relationship Specialty Start Date End Date Kaye Talavera MD [address] [place], [place] PCP - General Internal Medicine 12/24/19 documented as of this encounter
--- NOTE | 2025-08-12 11:22 | AM.OFFVISNUR ---
Intake Visit Reasons: B12 injection Allergies diphenhydramine (From Benadryl) Allergy (Severe, Verified 07/13/25 13:31) itching/throat swelling lisinopril Allergy (Severe, Verified 07/13/25 13:31) itching/throat swelling methylprednisolone Allergy (Severe, Verified 07/13/25 13:31) jumpy prochlorperazine Allergy (Severe, Verified 07/13/25 13:31) itching/throat swelling sirolimus (From Rapamune) Allergy (Severe, Verified 07/13/25 13:31) itching/throat swelling Sulfa (Sulfonamide Antibiotics) Allergy (Severe, Verified 07/13/25 13:31) itching/throat swelling sulfamethoxazole (From Bactrim) Allergy (Severe, Verified 07/13/25 13:31) itching/throat swelling trimethoprim (From Bactrim) Allergy (Severe, Verified 07/13/25 13:31) itching/throat swelling vancomycin Allergy (Severe, Verified 07/13/25 13:31) itching/throat swelling fluoxetine Adverse Reaction (Intermediate, Verified 07/13/25 13:53) mental fogginess Office Meds cyanocobalamin (vitamin B-12) 1,000 mcg/mL injection solution Performing Provider: Kaye Talavera MD Performing Location: [facility] Adult [facility]-10 HD Administered by: Jacqueline Alegria LPN on 08/12/25 11:22 Dose Route Admin Location Dispensed Lot Number Expiration Date [facility] [employer] 1,000 mcg IM left deltoid 1 mL [id number] 12/08/27 09123-007-51 LEISA JASSO Total Dispensed Waste 1 mL 0 % Assessment & Plan Assessment & Plan Orders: Orders AMB Vitamin B12 Injection Patient Supplied Today E53.8 - Deficiency of other specified B group vitamins Coding
--- OUTSIDE RECORDS SUMMARY | 2025-08-12 13:25 | XMS_ITS | Encounter Summary ---
Author Organization [facility] Address [address] [place] [address] Phone Care Team Providers Care Adult Specialist Name Role Phone Kaye Talavera MD Primary Care Provider +1- [phone] Reason for Visit * Reason Comments Med Change Request Encounter Details Date Type Department Care Team (Late st Contact Info) Description 06/27/2023 Refill [facility] [address] [place] [phone] Saulo Garcia MD Social History Tobacco Use [...] as of this encounter Plan of Treatment Upcoming Encounters Date Type Department Care Team (Late Contact Info) Description 10/08/2025 11:45 AM EST Office Visit [facility] [address] [place] [phone] Bertin Khoury MD [address] [place] [address] [place] [phone] documented as of this encounter Visit Diagnoses Not on filedocumented in this encounter Care Teams Adult Specialist Relationship Specialty Start Date End Date Kaye Talavera MD [address] [place], [place] PCP - General Internal Medicine 12/24/19 documented as of this encounter
--- OUTSIDE RECORDS SUMMARY | 2025-08-12 13:25 | XMS_ITS | Encounter Summary ---
Author Organization [facility] [place], Address [address] [address] Phone Care Team Providers Care Geoint Analyst Name Role Phone Kaye Talavera MD Primary Care Provider +1- [phone] Encounter Details Date Type Department Care Team (Late st Contact Info) Description 05/09/2022 Documentation Only [facility] [place], [address] [place] [address] [place], [place] [address] [place] [address] Social History Tobacco Use Types [...] Visit [facility] [place] [address] [place] [address] Bertin Khoury MD [address] [place] [address] documented as of this encounter Visit Diagnoses Not on filedocumented in this encounter Care Teams Geoint Analyst Relationship Specialty Start Date End Date Kaye Talavera MD [address] [place], [place] PCP - General Internal Medicine 12/24/19 documented as of this encounter
--- OUTSIDE RECORDS SUMMARY | 2025-08-12 13:25 | XMS_ITS | Encounter Summary ---
Author Organization [facility], Address [address] [place] [address] Phone Care Team Providers Care Dental Equipment Technician Name Role Phone Kaye Talavera MD Primary Care Provider +1- [phone] Encounter Details Date Type Department Care Team (Latest Contact Info) Description 05/20/2020 Orders Only [facility] [address] [place] [phone] Saulo Garcia MD Chronic kidney disease stage [...] Visit [facility] [address] [place] [address] Bertin Khoury MD [address] [place] [address] [place] [address] documented as of this encounter Procedures Procedure Name Priority Date/Time Associated Diagnosis Comments LIPID PANEL Routine 06/27/2020 2:10 PM EDT Chronic kidney disease stage 3 Anemia in chronic kidney disease History of renal transplant SLE glomerulonephritis syndrome (HCC) Congenital iodine-deficiency syndrome, mixed type documented in this encounter Results * Lipid panel (06/27/2020 2:10 PM EDT) Cholesterol, Total 172 (<200) MG/DL [facility] Triglycerides 109 (<150) MG/DL [facility] Comment:Patient not fasting HDL 59 (>39) MG/DL [facility] LDL Calculated 91 (0-130) MG/DL [facility] Non HDL Cholesterol 113 (<160) MG/DL [facility] Comment: Testing performed or reported by [facility], a Service of [facility], [address] [place] [address] Bel Mora MD, Preparatory Technician Blood specimen (specimen) Venous blood / Unknown 06/27/2020 2:10 PM EDT 06/27/2020 2:12 PM EDT us Saulo Garcia MD LAB BLOOD ORDERABLES Final Res ult [facility] documented in this encounter Visit Diagnoses Diagnosis Chronic kidney disease stage 3 (HCC) Anemia in chronic kidney disease History of renal transplant SLE glomerulonephritis syndrome (HCC) Congenital iodine-deficiency syndrome, mixed type documented in this encounter Care Teams Dental Equipment Technician Relationship Specialty Start Date End Date Kaye Talavera MD [address] [place], [place] PCP - General Internal Medicine 12/24/19 documented as of this encounter
--- OUTSIDE RECORDS SUMMARY | 2025-08-12 13:25 | XMS_ITS | Encounter Summary ---
Author Organization [facility] [place], Address [address] [address] Phone Care Team Providers Care Trust Vault Custodian Name Role Phone Kaye Talavera MD Primary Care Provider +1- [phone] Encounter Details Date Type Department Care Team (Late st Contact Info) Description 06/22/2025 Documentation Only [facility] [place], [address] [address] Bertin Khoury MD [address] [place] [address] [place] [address] Social History Tobacco Use Types [...] Visit [facility] [address] [place] [address] Bertin Khoury MD [address] [place] [address] [place] [address] documented as of this encounter Visit Diagnoses Not on filedocumented in this encounter Care Teams Trust Vault Custodian Relationship Specialty Start Date End Date Kaye Talavera MD [address] [place], [place] PCP - General Internal Medicine 12/24/19 documented as of this encounter
--- OUTSIDE RECORDS SUMMARY | 2025-08-12 13:25 | XMS_ITS | Encounter Summary ---
Author Organization [facility] Address [address] [address] Phone Care Team Providers Care Dj Instructor Name Role Phone Kaye Talavera MD Primary Care Provider +1- [phone] Encounter Details Date Type Department Care Team (Late Contact Info) Description 11/02/2021 Documentation Only [facility] [place], [address] [place] [address] Gabriela Ragsdale [address] [place] [address] Social History Tobacco Use Types Packs/Day [...] Visit [facility] [place] [address] [place] [address] Bertin Khoury MD [address] [facility] [place] [address] documented as of this encounter Visit Diagnoses Not on filedocumented in this encounter Care Teams Dj Instructor Relationship Specialty Start Date End Date Kaye Talavera MD [address] [place], [place] PCP - General Internal Medicine 12/24/19 documented as of this encounter
--- OUTSIDE RECORDS SUMMARY | 2025-08-12 13:25 | XMS_ITS | Encounter Summary ---
Author Organization [facility], Address [address] [address] Phone Care Team Providers Care Quantitative Developer Name Role Phone Kaye Talavera MD Primary Care Provider +1- [phone] Reason for Visit * Reason Comments Med Refill Encounter Details Date Type Department Care Team (Late Contact Info) Description 04/25/2022 Refill [facility] [address] [place] [address] Saulo Garcia MD Social History [...] [facility] [address] [place] [address] Bertin Khoury MD [address] [place] [address] [place] [address] documented as of this encounter Visit Diagnoses Not on filedocumented in this encounter Care Teams Quantitative Developer Relationship Specialty Start Date End Date Kaye Talavera MD [address] [place], [place] PCP - General Internal Medicine 12/24/19 documented as of this encounter
--- OUTSIDE RECORDS SUMMARY | 2025-08-12 13:25 | XMS_ITS | Encounter Summary ---
Author Organization [facility], Address PO [facility] [place] [address] Phone Care Team Providers Care Golf Club Head Inspector And Adjuster Name Role Phone Kaye Talavera MD Primary Care Provider +1- [phone] Reason for Visit * Reason Comments Med Change Request Encounter Details Date Type Department Care Team (Late st Contact Info) Description 06/03/2022 Refill [facility], [address] [place] [address] Bertin Khoury MD [address] [place] [address] [place] [address] Social History Tobacco Use Types [...] Visit [facility] [address] [place] [address] Bertin Khoury MD [address] [place] [address] [place] [address] documented as of this encounter Visit Diagnoses Not on filedocumented in this encounter Care Teams Golf Club Head Inspector And Adjuster Relationship Specialty Start Date End Date Kaye Talavera MD [address] [place], [place] PCP - General Internal Medicine 12/24/19 documented as of this encounter
--- OUTSIDE RECORDS SUMMARY | 2025-08-12 13:25 | XMS_ITS | Encounter Summary ---
Author Organization [facility] Address [address] [address] Phone Care Team Providers Care Marine Reporter Name Role Phone Kaye Talavera MD Primary Care Provider +1- [phone] Encounter Details Date Type Department Care Team (Late Contact Info) Description 02/12/2022 Documentation Only [facility] [place], [address] [place] [address] Gabriela Ragsdale [address] [place] [address] Social History Tobacco Use Types Packs/Day [...] Visit [facility] [place] [address] [facility] [place] [address] Bertin Khoury MD [address] [facility] [address] [place] [address] documented as of this encounter Visit Diagnoses Not on filedocumented in this encounter Care Teams Marine Reporter Relationship Specialty Start Date End Date Kaye Talavera MD [address] [place], [place] PCP - General Internal Medicine 12/24/19 documented as of this encounter
--- OUTSIDE RECORDS SUMMARY | 2025-08-12 13:25 | XMS_ITS | Encounter Summary ---
Author Organization [facility] Address [address] [address] Phone Care Team Providers Care Under Baster Name Role Phone Kaye Talavera MD Primary Care Provider +1- [phone] Encounter Details Date Type Department Care Team (Late Contact Info) Description 11/06/2022 Documentation Only [facility] [place], [address] [place] [place] [address] Gabriela Ragsdale [address] [place] [address] Social History Tobacco Use Types Packs/Day [...] Visit [facility] [place] [address] [place] [address] Bertin Khoury MD [address] [facility] [place] [address] documented as of this encounter Visit Diagnoses Not on filedocumented in this encounter Care Teams Under Baster Relationship Specialty Start Date End Date Kaye Talavera MD [address] [place], [place] PCP - General Internal Medicine 12/24/19 documented as of this encounter
--- OUTSIDE RECORDS SUMMARY | 2025-08-12 13:25 | XMS_ITS | Encounter Summary ---
Author Organization [facility] [place], Address [address] [address] Phone Care Team Providers Care Railway Track Plant Operator Name Role Phone Kaye Talavera MD Primary Care Provider +1- [phone] Encounter Details Date Type Department Care Team (Late st Contact Info) Description 11/25/2023 Documentation Only [facility] [place], [address] [place] [address] [place], [place], [place] [address] [place] [address] Social History Tobacco Use Types [...] Visit [facility] [place] [address] [place] [address] Bertin Khoury MD [address] [facility] [place] [address] documented as of this encounter Visit Diagnoses Not on filedocumented in this encounter Care Teams Railway Track Plant Operator Relationship Specialty Start Date End Date Kaye Talavera MD [address] [place], [place] PCP - General Internal Medicine 12/24/19 documented as of this encounter
--- OUTSIDE RECORDS SUMMARY | 2025-08-12 13:25 | XMS_ITS | Encounter Summary ---
Author Organization [facility] Address [address] [address] Phone Care Team Providers Care Photoengraving Retoucher Name Role Phone Kaye Talavera MD Primary Care Provider +1- [phone] Encounter Details Date Type Department Care Team (Late Contact Info) Description 07/23/2023 Documentation Only [facility] [place], [address] [place] [address] Gabriela Ragsdale [address] [place] [address] Social History Tobacco Use Types Packs/Day [...] Visit [facility] [place] [address] [place] [address] Bertin Khoury MD [address] [facility] [place] [place] [address] documented as of this encounter Visit Diagnoses Not on filedocumented in this encounter Care Teams Photoengraving Retoucher Relationship Specialty Start Date End Date Kaye Talavera MD [address] [place], [place] PCP - General Internal Medicine 12/24/19 documented as of this encounter
--- OUTSIDE RECORDS SUMMARY | 2025-08-12 13:25 | XMS_ITS | Encounter Summary ---
Author Organization [facility], Address [address] [place] [address] Phone Care Team Providers Care Cathode Washer Name Role Phone Kaye Talavera MD Primary Care Provider +1- [phone] Encounter Details Date Type Department Care Team (Latest Contact Info) Description 12/04/2019 Orders Only [facility] [address] [place] [phone] Saulo Garcia MD Chronic kidney disease stage [...] [facility] [address] [place] [address] Bertin Khoury MD [address] [place] [address] [place] [address] documented as of this encounter [...] AM EDT) CKMD Index 3.4 (0-6) NG/ML [facility] Comment: Testing performed or reported by [facility], a Service of [address] [address] Bel Mora MD, Tool Clerk 12/30/2019 11:4 2 AM EDT 12/30/2019 11:45 AM EDT Saulo Garcia MD LAB BLOOD ORDERABLES Final Res ult Performing Organization Address [facility] de Phone Number [facility] * Lipid panel (12/30/2019 11:42 AM EDT) Pathologist [facility] Cholesterol, Total 178 (<200) MG/DL [facility] Triglycerides 136 (<150) MG/DL [facility] HDL 47 (>39) MG/DL [facility] LDL Calculated 104 (0-130) MG/DL [facility] Non HDL Cholesterol 131 (<160) MG/DL [facility] Comment: Testing performed or reported by [facility], a Service of [address] [address] Bel Mora MD, Tool Clerk Blood specimen (specimen) Venous blood / Unknown 12/30/2019 11:42 AM EDT 12/30/2019 11:45 AM EDT Saulo Garcia MD LAB BLOOD ORDERABLES Final Res ult [facility] documented in this encounter Visit Diagnoses Diagnosis Chronic kidney disease stage 3 (HCC) Anemia in chronic kidney disease History of renal transplant SLE glomerulonephritis syndrome (HCC) Congenital iodine-deficiency syndrome, mixed type documented in this encounter Care Teams Cathode Washer Relationship Specialty Start Date End Date Kaye Talavera MD [address] [place], [place] PCP - General Internal Medicine 12/24/19 documented as of this encounter
--- OUTSIDE RECORDS SUMMARY | 2025-08-12 13:25 | XMS_ITS | Encounter Summary ---
Author Organization [facility] [place], Address [address] [address] Phone Care Team Providers Care Superintendent Institution Name Role Phone Kaye Talavera MD Primary Care Provider +1- [phone] Encounter Details Date Type Department Care Team (Late st Contact Info) Description 07/27/2024 Documentation Only [facility] [place], [address] [place] [address] Aguilar [place], [place] [address] [place] [address] Social History Tobacco Use Types [...] Visit [facility] [place] [address] [place] [address] Bertin Khoury MD [address] [facility] [place] [address] documented as of this encounter Visit Diagnoses Not on filedocumented in this encounter Care Teams Superintendent Institution Relationship Specialty Start Date End Date Kaye Talavera MD [address] [place], [place] PCP - General Internal Medicine 12/24/19 documented as of this encounter
--- OUTSIDE RECORDS SUMMARY | 2025-08-12 13:25 | XMS_ITS | Encounter Summary ---
Author Organization [facility], Address PO [facility] [address] Phone Care Team Providers Care Interior Painter Name Role Phone Kaye Talavera MD Primary Care Provider +1- [phone] Reason for Visit * Reason Comments Med Change Request Encounter Details Date Type Department Care Team (Late st Contact Info) Description 05/04/2022 Refill [facility], [address] [place] [address] Bertin Khoury MD [address] [place] [address] [place] [address] Social History Tobacco Use Types [...] Visit [facility] [address] [place] [address] Bertin Khoury MD [address] [place] [address] [place] [address] documented as of this encounter Visit Diagnoses Not on filedocumented in this encounter Care Teams Interior Painter Relationship Specialty Start Date End Date Kaye Talavera MD [address] [place], [place] PCP - General Internal Medicine 12/24/19 documented as of this encounter
--- OUTSIDE RECORDS SUMMARY | 2025-08-12 13:25 | XMS_ITS | Encounter Summary ---
Author Organization [facility] Address [address] [address] Phone Care Team Providers Care Pulling Unit Operator Name Role Phone Kaye Talavera MD Primary Care Provider +1- [phone] Encounter Details Date Type Department Care Team (Late st Contact Info) Description 10/13/2021 Documentation Only [facility] [place], [address] [place] [address] Gabriela Ragsdale [address] [place] [address] Social History Tobacco Use Types Packs/Day [...] Visit [facility] [place] [address] [facility] [place] [address] Bertin Khoury MD [address] [facility] [place] [address] documented as of this encounter Visit Diagnoses Not on filedocumented in this encounter Care Teams Pulling Unit Operator Relationship Specialty Start Date End Date Kaye Talavera MD [address] [place], [place] PCP - General Internal Medicine 12/24/19 documented as of this encounter
--- OUTSIDE RECORDS SUMMARY | 2025-08-12 13:25 | XMS_ITS | Encounter Summary ---
Author Organization [facility] [place], Address [address] [address] Phone Care Team Providers Care Human Resources Leader Name Role Phone Kaye Talavera MD Primary Care Provider +1- [phone] Encounter Details Date Type Department Care Team (Late st Contact Info) Description 01/28/2023 Documentation Only [facility] [place], [address] [place] [address] [place]ilar [place], [place] [address] [place] [address] Social History Tobacco Use Types [...] [facility] [place] [address] [place] [address] Bertin Khoury MD [address] [facility] [place] [address] documented as of this encounter Visit Diagnoses Not on filedocumented in this encounter Care Teams Human Resources Leader Relationship Specialty Start Date End Date Kaye Talavera MD [address] [place], [place] PCP - General Internal Medicine 12/24/19 documented as of this encounter
--- OUTSIDE RECORDS SUMMARY | 2025-08-12 13:25 | XMS_ITS | Encounter Summary ---
Author Organization [facility] [place], Address [address] [address] Phone Care Team Providers Care Motion Picture Scene Builder Name Role Phone Kaye Talavera MD Primary Care Provider +1- [phone] Encounter Details Date Type Department Care Team (Late st Contact Info) Description 02/12/2024 Documentation Only [facility] [place], [address] [facility] [place] [address] [place], [place] 2[address] [place] [address] Social History Tobacco Use Types [...] Visit [facility] [place] [address] [facility] [place] [address] Bertin Khoury MD [address] [facility] [place] [address] documented as of this encounter Visit Diagnoses Not on filedocumented in this encounter Care Teams Motion Picture Scene Builder Relationship Specialty Start Date End Date Kaye Talavera MD [address] [place], [place] PCP - General Internal Medicine 12/24/19 documented as of this encounter
--- OUTSIDE RECORDS SUMMARY | 2025-08-12 13:25 | XMS_ITS | Encounter Summary ---
Author Organization [facility] Address [address] [place] [address] Phone Care Team Providers Care Review Specialist Name Role Phone Kaye Talavera MD Primary Care Provider +1- [phone] Encounter Details Date Type Department Care Team (Late st Contact Info) Description 06/08/2022 Orders Only [facility], [address] [place] [address] Saulo Garcia MD Glomerular disease [...] Visit [facility] [place] [address] [place] [address] Bertin Khoury MD [address] [facility] 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
--- OUTSIDE RECORDS SUMMARY | 2025-08-12 13:25 | XMS_ITS | Encounter Summary ---
Author Organization [facility] Address [address] [place] [address] Phone Care Team Providers Care Recycling Attendant Name Role Phone Kaye Talavera MD Primary Care Provider +1- [phone] Encounter Details Date Type Department Care Team (Late st Contact Info) Description 08/11/2025 Telephone [facility] [place], [address] [place] [address] Nasra Kennedy [place] [address] [place] [address] Social History Tobacco Use Types [...] on file documented as of this encounter Miscellaneous Notes * Telephone Encounter - Nasra Kennedy MA - 08/11/2025 3:04 PM EST Spoke to pt and provided f/u appt 10/08/25@1145a documented in this encounter Plan of Treatment Upcoming Encounters Date Type Department Care Team (Late st Contact Info) Description 10/08/2025 11:45 AM EST Office Visit [facility] [place] [address] [place] [address] Bertin Khoury MD [address] [facility] [place] [address] documented as of this encounter Visit Diagnoses Not on filedocumented in this encounter Care Teams Recycling Attendant Relationship Specialty Start Date End Date Kaye Talavera MD [address] [place], [place] PCP - General Internal Medicine 12/24/19 documented as of this encounter
--- OUTSIDE RECORDS SUMMARY | 2025-08-12 13:25 | XMS_ITS | Encounter Summary ---
Author Organization [facility] Address [address] [address] Phone Care Team Providers Care System Support Administrator Name Role Phone Kaye Talavera MD Primary Care Provider +1- [phone] Encounter Details Date Type Department Care Team (Late Contact Info) Description 12/15/2021 Documentation Only [facility] [place], [address] [place] [address] Gabriela Ragsdale [address] [place] [address] Social History Tobacco Use Types Packs/Day [...] Visit [facility] [place] [address] [place] [address] Bertin Khoury MD [address] [facility] [place] [address] documented as of this encounter Visit Diagnoses Not on filedocumented in this encounter Care Teams System Support Administrator Relationship Specialty Start Date End Date Kaye Talavera MD [address] [place], [place] PCP - General Internal Medicine 12/24/19 documented as of this encounter
--- OUTSIDE RECORDS SUMMARY | 2025-08-12 13:25 | XMS_ITS | Encounter Summary ---
Author Organization [facility], Address [address] [address] Phone Care Team Providers Care Solar Photovoltaic Designer Name Role Phone Kaye Talavera MD Primary Care Provider +1- [phone] Encounter Details Date Type Department Care Team (Late Contact Info) Description 12/19/2020 Orders Only [facility] [address] [place] [address] Saulo Garcia MD Anemia in [...] Visit [facility] [address] [place] [address] Bertin Khoury MD [address] [place] [address] 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
--- OUTSIDE RECORDS SUMMARY | 2025-08-12 13:25 | XMS_ITS | Encounter Summary ---
Author Organization [facility] Address [address] [address] Phone Care Team Providers Care Needle Board Repairer Name Role Phone Kaye Talavera MD Primary Care Provider +1- [phone] Encounter Details Date Type Department Care Team (Late Contact Info) Description 12/01/2021 Documentation Only [facility] [place], [address] [place] [address] Gabriela Ragsdale [address] [place] [address] Social History Tobacco Use Types Packs/Day [...] Visit [facility] [place] [address] [place] [address] Bertin Khoury MD [address] [facility] [place] [address] documented as of this encounter Visit Diagnoses Not on filedocumented in this encounter Care Teams Needle Board Repairer Relationship Specialty Start Date End Date Kaye Talavera MD [address] [place], [place] PCP - General Internal Medicine 12/24/19 documented as of this encounter
--- OUTSIDE RECORDS SUMMARY | 2025-08-12 13:25 | XMS_ITS | Encounter Summary ---
Author Organization [facility] Address [address] [address] Phone Care Team Providers Care Zipper Cutter Name Role Phone Kaey Talavera MD Primary Care Provider +1- [phone] Encounter Details Date Type Department Care Team (Late st Contact Info) Description 12/20/2021 Documentation Only [facility] [place], [address] [place] [address] Gabriela Ragsdale [address] [place] [address] Social History Tobacco Use Types Packs/Day [...] Visit [facility] [place] [address] [facility] [place] [place] [address] Bertin Khoury MD [address] [facility] [place] [address] documented as of this encounter Visit Diagnoses Not on filedocumented in this encounter Care Teams Zipper Cutter Relationship Specialty Start Date End Date Kaye Talavera MD [address] [place], [place] PCP - General Internal Medicine 12/24/19 documented as of this encounter
--- OUTSIDE RECORDS SUMMARY | 2025-08-12 13:25 | XMS_ITS | Encounter Summary ---
Author Organization [facility], Address [address] [address] Phone Care Team Providers Care General Farmer Name Role Phone Kaye Talavera MD Primary Care Provider +1- [phone] Encounter Details Date Type Department Care Team (Latest Contact Info) Description 03/02/2020 Orders Only [facility] [address] [place] [address] Saulo Garcia MD Chronic kidney disease stage [...] Visit [facility] [place] [address] [place] [address] Bertin Khoury MD [address] [place] [address] [place] [address] documented as of this encounter Procedures Procedure Name Priority Date/Time Associated Diagnosis Comments LIPID PANEL Routine 04/05/2020 11:25 AM EDT Chronic kidney disease stage 3 (HCC) Anemia in chronic kidney disease History of renal transplant SLE glomerulonephritis syndrome (HCC) Congenital iodine-deficiency syndrome, mixed type documented in this encounter Results * Lipid panel (04/05/2020 11:25 AM EDT) Cholesterol, Total 172 (<200) MG/DL [facility] Triglycerides 133 (<150) MG/DL [facility] HDL 51 (>39) MG/DL [facility] LDL Calculated 94 (0-130) MG/DL [facility] Non HDL Cholesterol 121 (<160) MG/DL [facility] Comment: Testing performed or reported by [facility], a Service of [facility], [address] [place] [address] Bel Mora MD, Panel Builder Blood specimen (specimen) Venous blood / Unknown 04/05/2020 11:25 AM EDT 04/05/2020 11:33 AM EDT us Saulo Garcia MD LAB BLOOD ORDERABLES Final Res ult [facility] documented in this encounter Visit Diagnoses Diagnosis Chronic kidney disease stage 3 (HCC) Anemia in chronic kidney disease History of renal transplant SLE glomerulonephritis syndrome (HCC) Congenital iodine-deficiency syndrome, mixed type documented in this encounter Care Teams General Farmer Relationship Specialty Start Date End Date Kaye Talavera MD [facility] [place], [place] PCP - General Internal Medicine 12/24/19 documented as of this encounter
--- OUTSIDE RECORDS SUMMARY | 2025-08-12 13:25 | XMS_ITS | Clinical Summary ---
Author Organization [facility] Address [address] [place] [address] Phone Care Team Providers Care Children'S Attendant Name Role Phone Kaye Talavera MD Primary Care Provider +1- [phone] Allergies Active Allergy Reactions Criticality Noted Date [...] 1975 Diabetes: Annual Retina Eye Exam 1975 Zoster Vaccines (1 of 2) 1984 Cervical [...] patient's age to complete this topic Hepatitis B Vaccines Aged Out No long er eligible [...] Insurance MEDICARE MEDICAID - [place] Care Teams Children'S Attendant Relationship Specialty Start Date End Date Kaye Talavera MD [address] [place] [address] PCP - General 04/18/16
--- OUTSIDE RECORDS SUMMARY | 2025-08-12 13:25 | XMS_ITS | Encounter Summary ---
Author Organization [facility] Address [address] [place] [address] Phone Care Team Providers Care Passenger Train Braker Name Role Phone Kaye Talavera MD Primary Care Provider +1- [phone] Reason for Visit * Reason Comments Med Change Request Encounter Details Date Type Department Care Team (Late st Contact Info) Description 12/12/2021 Refill [facility] [address] [place] [phone] Saulo Garcia MD Social History Tobacco Use [...] [facility] [address] [place] [phone] Bertin Khoury MD [address] [place] [address] [place] [phone] documented as of this encounter Visit Diagnoses Not on filedocumented in this encounter Care Teams Passenger Train Braker Relationship Specialty Start Date End Date Kaye Talavera MD [address] [place], [place] PCP - General Internal Medicine 12/24/19 documented as of this encounter
--- OUTSIDE RECORDS SUMMARY | 2025-08-12 13:25 | XMS_ITS | Encounter Summary ---
Author Organization [facility], Address [address] [place] [address] Phone Care Team Providers Care Book Cleaner Name Role Phone Kaye Talavera MD Primary Care Provider +1- [phone] Encounter Details Date Type Department Care Team (Latest Contact Info) Description 08/12/2020 Orders Only [facility] [address] [place] [phone] Saulo Garcia MD Chronic kidney disease stage [...] Visit [facility] [address] [place] [address] Bertin Khoury MD [address] [place] [address] [place] [address] documented as of this encounter Procedures Procedure Name Priority Date/Time Associated Diagnosis Comments LIPID PANEL Routine 11/29/2020 12:52 PM EDT Chronic kidney disease stage 3 Anemia in chronic kidney disease History of renal transplant SLE glomerulonephritis syndrome (HCC) Congenital iodine-deficiency syndrome, mixed type documented in this encounter Results * Lipid panel (11/29/2020 12:52 PM EDT) Cholesterol, Total 187 (<200) MG/DL [facility] Triglycerides 111 (<150) MG/DL [facility] HDL 66 (>39) MG/DL [facility] LDL Calculated 99 (0-130) MG/DL [facility] Non HDL Cholesterol 121 (<160) MG/DL [facility] Comment: Testing performed or reported by [facility], a Service of [facility], [address] [place] [address] Bel Mora MD, Mix Technician Blood specimen (specimen) Venous blood / Unknown 11/29/2020 12:52 PM EDT 11/29/2020 12:53 PM EDT us Saulo Garcia MD LAB BLOOD ORDERABLES Final Res ult [facility] documented in this encounter Visit Diagnoses Diagnosis Chronic kidney disease stage 3 (HCC) Anemia in chronic kidney disease History of renal transplant SLE glomerulonephritis syndrome (HCC) Congenital iodine-deficiency syndrome, mixed type documented in this encounter Care Teams Book Cleaner Relationship Specialty Start Date End Date Kaye Talavera MD [address] [place], [place] PCP - General Internal Medicine 12/24/19 documented as of this encounter
--- OUTSIDE RECORDS SUMMARY | 2025-08-12 13:25 | XMS_ITS | Encounter Summary ---
Author Organization [facility] Address [address] [address] Phone Care Team Providers Care Control Analyst Name Role Phone Kaye Talavera MD Primary Care Provider +1- [phone] Encounter Details Date Type Department Care Team (Late Contact Info) Description 10/08/2022 Documentation Only [facility] [place], [address] [place] [address] Gabriela [place] [address] [place] [phone] Social History Tobacco Use Types Packs/Day [...] Visit [facility] [place] [address] [place] [address] Bertin Khoury MD [address] [facility] [place] [address] documented as of this encounter Visit Diagnoses Not on filedocumented in this encounter Care Teams Control Analyst Relationship Specialty Start Date End Date Kaye Talavera MD [address] [place], [place] PCP - General Internal Medicine 12/24/19 documented as of this encounter
--- OUTSIDE RECORDS SUMMARY | 2025-08-12 13:25 | XMS_ITS | Encounter Summary ---
Author Organization [facility] Address [address] [place] [address] Phone Care Team Providers Care Hand Bobbin Cleaner Name Role Phone Kaye Talavera MD Primary Care Provider +1- [phone] Reason for Visit * Reason Comments Med Change Request Encounter Details Date Type Department Care Team (Late st Contact Info) Description 11/27/2021 Refill [facility] [address] [place] [address] Saulo Garcia MD Social History Tobacco Use [...] Visit [facility] [address] [place] [address] Bertin Khoury MD [address] [place] [address] [place] [address] documented as of this encounter Visit Diagnoses Not on filedocumented in this encounter Care Teams Hand Bobbin Cleaner Relationship Specialty Start Date End Date Kaye Talavera MD [address] [place], [place] PCP - General Internal Medicine 12/24/19 documented as of this encounter
--- OUTSIDE RECORDS SUMMARY | 2025-08-12 13:25 | XMS_ITS | Encounter Summary ---
Author Organization [facility] Address [address] [address] Phone Care Team Providers Care Thermal Technician Name Role Phone Kaye Talavera MD Primary Care Provider +1- [phone] Encounter Details Date Type Department Care Team (Late Contact Info) Description 01/28/2023 Documentation Only [facility] [place], [address] [place] [address] Gabriela [place] [address] [place] [phone] Social History Tobacco Use Types Packs/Day [...] Visit [facility] [place] [address] [place] [address] Bertin Khoury MD [address] [facility] [place] [address] documented as of this encounter Visit Diagnoses Not on filedocumented in this encounter Care Teams Thermal Technician Relationship Specialty Start Date End Date Kaye Talavera MD [address] [place], [place] PCP - General Internal Medicine 12/24/19 documented as of this encounter
--- OUTSIDE RECORDS SUMMARY | 2025-08-12 13:25 | XMS_ITS | Encounter Summary ---
Author Organization [facility], Address [address] [place] [address] Phone Care Team Providers Care Wound Treatment Rn Name Role Phone Kaye Talavera MD Primary Care Provider +1- [phone] Reason for Visit * Reason Comments Med Change Request Encounter Details Date Type Department Care Team (Late st Contact Info) Description 07/03/2022 Refill [facility], [address] [place] [address] Bertin Khoury MD [address] [place] [address] [place] [address] Social History Tobacco Use Types [...] Visit [facility] [address] [place] [address] Bertin Khoury MD [address] [place] [address] [place] [address] documented as of this encounter Visit Diagnoses Not on filedocumented in this encounter Care Teams Wound Treatment Rn Relationship Specialty Start Date End Date Kaye Talavera MD [address] [place], [place] PCP - General Internal Medicine 12/24/19 documented as of this encounter
--- OUTSIDE RECORDS SUMMARY | 2025-08-12 13:25 | XMS_ITS | Encounter Summary ---
Author Organization [facility] Address [address] [place] [address] Phone Care Team Providers Care Bearing Machine Operator Name Role Phone Kaye Talavera MD Primary Care Provider +1- [phone] Encounter Details Date Type Department Care Team (Late Contact Info) Description 07/03/2022 Orders Only [facility] [place], [address] [place] [address] Saulo Garcia MD Precordial pain [...] Visit [facility] [address] [place] [address] Bertin Khoury MD [address] [place] [address] [place] [address] documented as of this encounter Visit Diagnoses Diagnosis Precordial pain documented in this encounter Care Teams Bearing Machine Operator Relationship Specialty Start Date End Date Kaye Talavera MD [address] [place], [place] PCP - General Internal Medicine 12/24/19 documented as of this encounter
--- OUTSIDE RECORDS SUMMARY | 2025-08-12 13:25 | XMS_ITS | Encounter Summary ---
Author Organization [facility] Address [address] [address] Phone Care Team Providers Care Iron Worker Foreman Name Role Phone Kaye Talavera MD Primary Care Provider +1- [phone] Encounter Details Date Type Department Care Team (Late Contact Info) Description 01/09/2023 Documentation Only [facility] [place], [address] [place] [address] Gabriela [place] [address] [place] [phone] Social History Tobacco Use Types Packs/Day [...] Visit [facility] [place] [address] [address] Bertin Khoury MD [address] [facility] [place] [address] documented as of this encounter Visit Diagnoses Not on filedocumented in this encounter Care Teams Iron Worker Foreman Relationship Specialty Start Date End Date Kaye Talavera MD [address] [place], [place] PCP - General Internal Medicine 12/24/19 documented as of this encounter
--- OUTSIDE RECORDS SUMMARY | 2025-08-12 13:26 | XMS_ITS | Encounter Summary ---
Author Organization [facility] Address [address] [address] Phone Care Team Providers Care Chore Tender Name Role Phone Kaye Talavera MD Primary Care Provider +1- [phone] Encounter Details Date Type Department Care Team (Late Contact Info) Description 08/08/2022 Documentation Only [facility] [place], [address] [place] [address] Gabriela [place] [address] [place] [phone] Social History Tobacco Use Types Packs/Day [...] Visit [facility] [place] [address] [facility] [place] [address] Bertin Khoury MD [address] [facility] [place] [address] documented as of this encounter Visit Diagnoses Not on filedocumented in this encounter Care Teams Chore Tender Relationship Specialty Start Date End Date Kaye Talavera MD [address] [place], [place] PCP - General Internal Medicine 12/24/19 documented as of this encounter
--- OUTSIDE RECORDS SUMMARY | 2025-08-12 13:26 | XMS_ITS | Clinical Summary ---
Author Organization [facility] [place] [facility], Address [address] [place] [address] [place] [address] Phone Care Team Providers Care Vice President Tax Name Role Phone Kaye Talavera MD Primary Care Provider [phone]- [phone] Allergies Active Allergy Reactions Criticality Noted Date [...] 3 09/28/19 23 Active ergocalciferol 1.25 MG (70203 UT) capsule TAKE 1 CAPSULE (50,000 UNITS [...] day 90 tablet 3 02/13/20 24 Active HYDROcodone-acet aminophen ([place]) 10-325 MG per tablet Take 1 tablet by mouth 1 (one) time each day if needed for moderate pain Pt may take less if needed 30 tablet 05/29/20 24 Active levothyroxine (SYNTHROID, LEVOTHROID) 125 MCG [...] 85.4 kg as of 03/05/25 2 each 03/17/20 25 026 Active albuterol HFA (Ventolin [...] DAY 15 tablet 5 06/01/20 25 Active cyanocobalamin (VITAMIN B-12) 1000 MCG/ML injection Inject 1 mL (1,000 mcg total) into the shoulder, thigh, or buttocks every 30 (thirty) days 1 mL 06/18/20 25 026 Active [address]UM [address] capsule Take 1 capsule (40 mg total) by mouth in the morning and 1 capsule (40 mg total) in the evening. Do not open capsule. 180 capsule 3 08/04/20 25 Active mycophenolate (MYFORTIC) 180 MG EC tablet TAKE 3 TABLETS BY MOUTH IN THE MORNING AND 3 TABLETS IN THE EVENING. 540 tablet 3 08/04/20 25 Active mycophenolate (MYFORTIC) 180 MG EC tablet TAKE 3 TABLETS BY MOUTH IN THE MORNING AND 3 TABLETS IN THE EVENING. 540 tablet 3 07/23/20 24 025 Discontinued(R eorder (does not appear on AVS)) fluticasone (FLONASE) 50 MCG/ACT nasal spray SPRAY TWO SPRAYS IN EACH NOSTRIL TWICE DAILY 96 mL 1 10/23/19 25 025 Discontinued NexIUM [address] capsule Take 1 capsule (40 mg total) by mouth in the morning and 1 capsule (40 mg total) in the evening. Do not open capsule. 180 capsule 3 06/18/20 25 025 Discontinued(R eorder (does not appear on AVS)) Active Problems Problem Noted Date Diagnosed Date [...] Encounters Date Type Department Care Team Description 08/11/2025 Telephone [facility] [address] [place] [address] Nasra Kennedy MA 08/04/2025 11:30 AM EST Office Visit [facility] [address] [place] [address] Bertin Khoury MD Kidney replaced by transplant (Primary Dx); Personal history of immunosuppression therapy; Stage 3a chronic kidney disease (HCC); Other cystitis without hematuria, not otherwise specified 06/24/2025 Orders Only [facility] [address] [place] [address] Nasra Kennedy MA Kidney replaced by transplant (Primary Dx); Personal history of immunosuppression therapy; Stage 3a chronic kidney disease (HCC); Hypothyroidism, not otherwise specified; Hypomagnesemia; 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); History of renal transplant; Vitamin D deficiency, not otherwise specified; Idiopathic gout, not otherwise specified; Other iron deficiency anemia; Other specified hypoparathyroidism (HCC); Albuminuria, not otherwise specified; Poor glycemic control 06/22/2025 Documentation Only [facility] [address] [place] [address] Bertin Khoury MD 06/18/2025 Orders Only [facility] [address] [place] [address] Nasra Kennedy MA 06/18/2025 Refill [facility] [address] [place] [address] Bertin Khoury MD 06/18/2025 Refill [facility] [address] [place] [address] Bertin Khoury MD 06/18/2025 Orders Only [facility] [address] [place] [address] Nasra Kennedy MA 05/31/2025 Refill [facility] [address] [place] [address] Bertin Khoury MD 05/22/2025 Refill [facility] [address] [place] [address] Bertin Khoury MD from Last 3 Months Immunizations Immunization Administration [...] 07/14/2019 12:00 PM EST Plan of Treatment Upcoming Encounters Date Type Department Care Team (Late st Contact Info) Description 10/08/2025 11:45 AM EST Office Visit [facility] [address] [place] [address] Bertin Khoury MD [address] [place] [address] [place] [address] Health Maintenance Due Date Last Done Comments Breast Cancer Screening 1965 Pneumococcal Vaccine: 50+ Years (3 of 3 - PCV) 10/01/2009 10/01/2008, 10/01/2008 Colonoscopy (Post-Transplant Patient) 04/20/2020 Mammogram (Post-Transplant Patient) 04/20/2020 Pelvic Exam (Post-Transplant Patient) 04/20/2020 Influenza Vaccine (#1) 2025 Pneumococcal Vaccine: Peds (0 to 5 Years) and At-Risk Patients (6 to 49 Years) Discontinued 10/01/2008, 10/01/2008 Hepatitis B Vaccine Aged Out No longe r eligible based on patient's age to complete this topic Procedures Procedure Name Priority Date/Time Associated Diagnosis [...] Results * TSH (05/21/2025 11:08 AM EDT) TSH 0.597 0.450 - 4.500 uIU/mL [facility] 05/21/2025 11:0 8 AM EDT 05/21/2025 Bertin Khoury MD LAB BLOOD ORDERABLES Final Result [facility] [address] [place] [address] * (ABNORMAL) Urinalysis, Complete w/reflex to Culture (05/21/2025 11:08 AM EDT) Specific [place], Urine 1.018 1.005 - 1.030 [facility] pH Urine 6.0 5.0 - 7.5 [facility] Color, Urine Yellow Yellow [facility] Appearance Urine Clear Clear [facility] [place] WBC Esterase Urine Negative Negative [facility] Protein, Ur 2+(A) Negative/Tra ce [facility] Glucose, Ur Negative Negative [facility] Ketones, Urine Negative Negative [facility] [place] Blood Urine Negative Negative [facility] [phone] Bilirubin Urine Negative Negative [facility] [place] Urobilinogen Urine 0.2 0.2 - 1.0 mg/dL [facility] [phone] Nitrite, Urine Negative Negative [facility] Microscopic Examination See below: [facility] Comment:Microscopic was soco cated and was performed. URINALYSIS REFLEX Comment [facility] [phone] Comment:This specimen will n ot reflex to a Urine Culture. Urine Urine specimen obtained by clean catch procedure / Unknown 05/21/2025 11:08 AM EDT 05/21/2025 Bertin Khoury MD LAB URINE ORDERABLES Final Result [facility] [address] [place] [address] * Mycophenolic Acid and Metabo. (05/21/2025 11:08 AM EDT) Mycophenolic Acid 2.8 1.0 - 3.5 ug/mL [facility] Mycophenolic Acid Glucuronide 69 35 - 100 ug/mL [facility] Blood Venous blood / Unknown 05/21/2025 11:08 AM EDT 05/21/2025 Narrative [facility] - 05/24/2025 11:06 AM EDT Test(s) 400998-Dxmikjlpfmlr Acid; 847427- Mycophenolic Acid Glucuronide was developed and its performance characteristics determined by [employer]. It has not been cleared or approved by the Food and Drug Administration. Bertin Khoury MD LAB BLOOD ORDERABLES Final Result [facility] [address] [place] [phone] * Microscopic Examination (05/21/2025 11:08 AM EDT) WBC, Urine None seen 0 - 5 /hpf [facility] RBC, Urine None seen 0 - 2 /hpf [facility] Squamous Epithelial, Urine None seen 0 - 10 /hpf [facility] Casts None seen None seen /lpf [facility] Bacteria, Urine None seen None seen/Few [facility] 05/21/2025 11:0 8 AM EDT 05/21/2025 Bertin Khoury MD LAB MICROBIOLOGY - GENERAL ORDERABLES Final Result Performing Organization Address [facility]/[employer] de Phone Number [employer] [facility] [address] [place] [address] * Iron Panel (Fe, TIBC, TSAT) (05/21/2025 11:08 AM EDT) TIBC 299 250 - 450 ug/dL [facility] UIBC 242 131 - 425 ug/dL [facility] Iron 57 27 - 159 ug/dL [facility] Iron Saturation (TSat) 19 15 - 55 % [facility] Blood Venous blood / Unknown 05/21/2025 11:08 AM EDT 05/21/2025 Bertin Khoury MD LAB BLOOD ORDERABLES Final Result Performing Organization Address [facility] de Phone Number [employer] [facility] [address] [place] [address] * (ABNORMAL) Urine Albumin / Creatinine Ratio (05/21/2025 11:08 AM EDT) Creatinine, Ur 117.8 Not Estab. mg/dL [facility] Albumin, Urine 374.7 Not Estab. ug/mL [facility] Albumin/Creatin ine Ratio 318(H) 0 - 29 mg/g creat [facility] Comment: Normal: 0 - 29 Moderately increased: 30 - 300 Severely increased: >300 Urine Urine specimen obtained by clean catch procedure / Unknown 05/21/2025 11:08 AM EDT 05/21/2025 Bertin Khoury MD LAB URINE ORDERABLES Final Result Performing Organization Address [facility]/ZIP Co de Phone Number [facility] [address] [place] [address] * (ABNORMAL) CBC and Differential (05/21/2025 11:08 AM EDT) WBC 6.3 3.4 - 10.8 x10E3/uL [facility] RBC 3.74(L) 3.77 - 5.28 x10E6/uL [facility] Hemoglobin 11.7 11.1 - 15.9 g/dL [facility] Hematocrit 36.2 34.0 - 46.6 % [facility] MCV 97 79 - 97 fL [facility] MCH 31.3 26.6 - 33.0 pg [facility] MCHC 32.3 31.5 - 35.7 g/dL [facility] RDW 13.0 11.7 - 15.4 % [facility] Platelets 181 150 - 450 x10E3/uL [facility] Neutrophils Relative 65 Not Estab. % [facility] Lymphocytes Relative 24 Not Estab. % [facility] Monocytes 7 Not Estab. % [facility] Eosinophils Relative 3 Not Estab. % [facility] Basophils Relative 1 Not Estab. % [facility] Neutrophils Absolute 4.2 1.4 - 7.0 x10E3/uL [facility] Lymphocytes Absolute 1.5 0.7 - 3.1 x10E3/uL [facility] Monocytes Absolute 0.4 0.1 - 0.9 x10E3/uL [facility] Eosinophils Absolute 0.2 0.0 - 0.4 x10E3/uL [facility] Basophils Absolute 0.0 0.0 - 0.2 x10E3/uL [facility] Immature Granulocytes 0 Not Estab. % [facility] Immature Grans (Absolute) 0.0 0.0 - 0.1 x10E3/uL [facility] Blood Venous blood / Unknown 05/21/2025 11:08 AM EDT 05/21/2025 Bertin Khoury MD LAB BLOOD ORDERABLES Final Result Performing Organization Address City/[facility]/ZIP Co de Phone Number [facility] [address] [place] [address] * ALT (05/21/2025 11:08 AM EDT) ALT (SGPT) 19 0 - 32 IU/L [facility] Blood Venous blood / Unknown 05/21/2025 11:08 AM EDT 05/21/2025 Bertin Khoury MD LAB BLOOD ORDERABLES Final Result Performing Organization Address [facility]/ZIP Co de Phone Number [facility] [address] [place] [address] * AST (05/21/2025 11:08 AM EDT) AST (SGOT) 20 0 - 40 IU/L [facility] Blood Venous blood / Unknown 05/21/2025 11:08 AM EDT 05/21/2025 Bertin Khoury MD LAB BLOOD ORDERABLES Final Result Performing Organization Address City/[facility]/ZIP Co de Phone Number [facility] [address] [place] [address] * PTH, Intact (05/21/2025 11:08 AM EDT) PTH 45 15 - 65 pg/mL [facility] Blood Venous blood / Unknown 05/21/2025 11:08 AM EDT 05/21/2025 Bertin Khoury MD LAB BLOOD ORDERABLES Final Result [facility] [address] [place] [address] * Magnesium (05/21/2025 11:08 AM EDT) Pathologist [facility] Magnesium 2.1 1.6 - 2.3 mg/dL [facility] 05/21/2025 11:0 8 AM EDT 05/21/2025 Bertin Khoury MD LAB BLOOD ORDERABLES Final Result Performing Organization Address [facility] de Phone Number [facility] [address] [place] [address] * (ABNORMAL) Ferritin (05/21/2025 11:08 AM EDT) Pathologist [facility] Ferritin 158(H) 15 - 150 ng/mL [facility] Blood Venous blood / Unknown 05/21/2025 11:08 AM EDT 05/21/2025 Bertin Khoury MD LAB BLOOD ORDERABLES Final Result Performing Organization Address City/[facility]/[employer] [employer] de Phone Number [facility] [address] [place] [address] * CK (05/21/2025 11:08 AM EDT) Pathologist [facility] Creatine Kinase (CK/CPK) 89 32 - 182 U/L [facility] Blood Venous blood / Unknown 05/21/2025 11:08 AM EDT 05/21/2025 Bertin Khoury MD LAB BLOOD ORDERABLES Final Result [facility] [address] [place] [address] * (ABNORMAL) Renal Function Panel (05/21/2025 11:08 AM EDT) Pathologist [facility] Glucose 96 70 - 99 mg/dL [facility] BUN 26(H) 6 - 24 mg/dL [facility] Creatinine 1.36(H) 0.57 - 1.00 mg/dL [facility] eGFR CKD-EPI CR 2020 45(L) >59 mL/min/1.7 3 [facility] BUN/Creatinine Ratio 19 9 - 23 [facility] Sodium 140 134 - 144 mmol/L [facility] Potassium 4.3 3.5 - 5.2 mmol/L [facility] Chloride 108(H) 96 - 106 mmol/L [facility] Bicarbonate (CO2) 21 20 - 29 mmol/L [facility] Calcium 9.9 8.7 - 10.2 mg/dL [facility] Albumin 4.2 3.8 - 4.9 g/dL [facility] Phosphorus 3.1 3.0 - 4.3 mg/dL [facility] Blood Venous blood / Unknown 05/21/2025 11:08 AM EDT 05/21/2025 Bertin Khoury MD LAB BLOOD ORDERABLES Final Result [facility] [address] [place] [address] from Last 3 Months Insurance [place] Medicare Care Teams Vice President Tax Relationship Specialty Start Date End Date Kaye Talavera MD [address] [place], [place] PCP - General Internal Medicine 12/24/19
== END 2025-08-12 11:20 | disposition home or self-care (01) ==
LOC: HO.HMCHD 10:44
PROVIDERS: PCP Internal Medicine; Visit Provider Internal Medicine
DX: E53.8 Deficiency of other specified B group vitamins (principal)

== ENCOUNTER → 2025-08-12 10:44 | Outpatient (BNVA) | payer MEDICARE, MEDICAID, SELFPAY | PROVIDERS: PCP Internal Medicine; Visit Provider Internal Medicine | DX: E53.8 Deficiency of other specified B group vitamins (principal) | CPT/HCPCS: 96372; J3420 ==

== ENCOUNTER 2025-08-18 12:45 | Outpatient (AMB) | payer MEDICARE, MEDICAID, SELFPAY ==
--- NOTE | 2025-08-18 12:58 | A.OFFVIS_ITS ---
Intake Visit Reasons: NPV C Ref- neck pain Intake Note: Tamar states that she has arthrits and lupus l4 l5 herniated disk pain/ grinding is making her dizzy and no treatment only physical therapy Allergies diphenhydramine (From Benadryl) Allergy (Severe, Verified 08/18/25 13:01) itching/throat swelling lisinopril Allergy (Severe, Verified 08/18/25 13:01) itching/throat swelling methylprednisolone Allergy (Severe, Verified 08/18/25 13:01) jumpy prochlorperazine Allergy (Severe, Verified 08/18/25 13:01) itching/throat swelling sirolimus (From Rapamune) Allergy (Severe, Verified 08/18/25 13:01) itching/throat swelling Sulfa (Sulfonamide Antibiotics) Allergy (Severe, Verified 08/18/25 13:01) itching/throat swelling sulfamethoxazole (From Bactrim) Allergy (Severe, Verified 08/18/25 13:01) itching/throat swelling trimethoprim (From Bactrim) Allergy (Severe, Verified 08/18/25 13:01) itching/throat swelling vancomycin Allergy (Severe, Verified 08/18/25 13:01) itching/throat swelling fluoxetine Adverse Reaction (Intermediate, Verified 08/18/25 13:01) mental fogginess HPI Comments Details: History of Present Illness The patient is a 60 year old female presenting with worsening chronic neck pain. She has had issues with her neck for a long time and has a known history of arthritis in the area, but symptoms have worsened recently with the cold weather. She describes a sensation of bones crackling in her neck, stiffness, and the feeling of a large, tight knot. She rates her pain as an 8 out of 10 today, located centrally in the neck without radiation into the arms. Associated symptoms include a recent episode of vertigo, where she woke up with the room spinning, which lasted for a while before resolving. She also notes that her index finger turns purple and has a sensation of a flow, with concern for a pinched nerve. The patient's past medical history is significant for a kidney transplant, for which she receives belatacept, as well as fibromyalgia and lupus. She takes Vicodin at night for fibromyalgia, but reports it does not help her neck pain. A prior cervical spine X-ray from July 21, 2025, showed cervical spondylosis with no acute findings. She has had physical therapy in the past for her neck but has not seen a physical therapist or chiropractor recently. I reviewed the referring provider's no prior to consultation. Pain Description - Location: Pain is located centrally in the neck. - Severity: Rated as 8 out of 10. - Quality: Described as a crackling sensation, stiffness, and feeling like a big knot and tightness. - Onset and duration: Chronic issue that has been present for a long time. - Exacerbating factors: Worsens with cold weather. - Associated symptoms: Vertigo. - Radiation: Pain is non-radiating to the arms. Results - Imaging: - Cervical Spine X-ray (07/21/2025): Impression of no acute findings and cervical spondylosis. The images were reviewed by me and I agree with the radiology report. [facility] Medical History (Updated 08/18/25 @ 13:17 by MULUGETA Hinds) B12 deficiency Neck pain Anxiety Depression Asthma Primary hypertension Fibromyalgia Hypothyroid Atrial fibrillation Lupus nephritis Surgical History (Updated 07/13/25 @ 13:26 by Kaye Talavera MD) H/O vaginal hysterectomy History of renal transplant Social History Housing: House Patient Tobacco Use Status: Former Tobacco user e-Cigarette/Vaping Use: Never Used Current occupational status: disabled Review of Systems Narrative Review of Systems - Musculoskeletal: Reports chronic neck pain rated 8/10, stiffness, and a crackling sensation. - Neurological: Reports a recent episode of vertigo. Reports a sensation of flow in the index finger, concerning for a pinched nerve. Denies tingling or numbness in the upper arm area. - Integumentary/Vascular: Reports her index finger turns purple. Physical Exam Exam Exam: Physical Exam Cervical Spine: Examination of her cervical spine, there is no visible swelling or deformity. She is tender to bilateral upper trapezius. She has limited range of motion of her cervical spine throughout. Special Tests: Axial Compression test: Negative Spurlings test: Negative Lhermitte's sign is Negative Upper Extremities: Full range of motion bilateral upper extremities. Equal railroad signal technician strength bilaterally. Patient does have varicose veins apparent in her hands [id number]. Patient does have a shunt in the left forearm. Neuro: Sensation: Intact to upper extremities bilateral to light touch Strength C5 (Elbow Flexion): 5/5 on the left and 5/5 on the right. C6 (Elbow Ext): 5/5 on the left and 5/5 on the right. C7 (Elbow Ext): 5/5 on the left and 5/5 on the right. C8 (Finger Flex): 5/5 on the left and 5/5 on the right. T1 (Finger Abd/Add): 5/5 on the left and 5/5 on the right. DTR: C5 (Biceps): Left 2 Right 2 C6 (Brachioradialis): Left 2 Right 2 C7 (Triceps): Left 2 Right 2 Roberts sign: Negative No pathologic clonus. No involuntary movement. Assessment & Plan Assessment & Plan (1) Cervical radiculopathy: Code(s): M54.12 - Radiculopathy, cervical region Category: Medical Plan Pain Management - Analgesia: Takes Vicodin at night for fibromyalgia but reports it provides no relief for her neck pain; current neck pain is an 8/10. - Activities of daily living: Pain and associated symptoms affect her sleep. - Affect: Reports the sound of crackling in her neck is bothersome, and a recent episode of vertigo was scary. - Adverse effects: None discussed. - Aberrant drug-related behaviors: None discussed. Plan Patient was informed and verbally consented to the use of an ambient scribe for clinic note documentation during this visit. 1. Cervical Spondylosis The patient's worsening chronic neck pain, stiffness, and crackling are consistent with her known history of cervical spondylosis. Given the new symptoms in her index finger, there is concern for possible radiculopathy secondary to nerve root compression, potentially at the C6 or C7 level. An MRI of the cervical spine will be ordered to further evaluate the extent of the arthritis and degenerative disc disease and to assess for nerve compression per patient request, pending insurance authorization. The patient will follow up to discuss the MRI results and establish further treatment options. 2. Fibromyalgia The patient carries a diagnosis of fibromyalgia and reports taking Vicodin at night, although it does not alleviate her neck pain. No changes were made to her current fibromyalgia management during this visit. Discussion Notes I discussed with the patient that to better evaluate her worsening neck pain, arthritis, and disc condition, as well as investigate the finger symptoms that could indicate a pinched nerve, an MRI of her neck would be beneficial. I explained that I will order the MRI, but it will require approval from her insurance company. I informed her that the MRI department will contact her to schedule the appointment once it is approved. We agreed to schedule a follow-up visit after the MRI is completed to review the report and discuss further treatment options. The patient expressed understanding and agreement with this plan. Patient Instructions - I am ordering an MRI of your neck to get a better understanding of what is causing your pain. - We will submit this request to your insurance company for approval. - The MRI department will call you directly to schedule your appointment once it is approved. - Please call our office to schedule a follow-up appointment after your MRI is done so we can review the results and talk about treatment options. Orders: Orders MR cervical spine wo con Today M54.12 - Radiculopathy, cervical region Coding Level of Care Code Tele New Pt Level 4 (50559) Diagnoses Cervical radiculopathy M54.12
--- OUTSIDE RECORDS SUMMARY | 2025-08-18 19:29 | XMS_ITS | Encounter Summary ---
Author Organization [facility] [place], Address [address] [address] Phone Care Team Providers Care Living Advisor Name Role Phone Kaye Talavera MD Primary Care Provider [phone]- [phone] Encounter Details Date Type Department Care Team (Late st Contact Info) Description 06/22/2025 Documentation Only [facility] [place], [address] [place] [address] Bertin Khoury MD [address] [place] [address] [place] [address] Social History Tobacco Use Types [...] Visit [facility] [address] [place] [address] Bertin Khoury MD [address] [place] [address] [place] [address] documented as of this encounter Visit Diagnoses Not on filedocumented in this encounter Care Teams Living Advisor Relationship Specialty Start Date End Date Kaye Talavera MD [address], [place] PCP - General Internal Medicine 12/24/19 documented as of this encounter
--- OUTSIDE RECORDS SUMMARY | 2025-08-18 19:29 | XMS_ITS | Encounter Summary ---
Author Organization [facility], Address PO [facility] [place] [address] Phone Care Team Providers Care Peanut Cleaner Name Role Phone Kaye Talavera MD Primary Care Provider +1- [phone] Reason for Visit * Reason Comments Med Change Request Encounter Details Date Type Department Care Team (Late st Contact Info) Description 06/03/2022 Refill [facility], [address] [place] [address] Bertin Khoury MD [address] [place] [address] [place] [address] Social History Tobacco Use Types [...] Visit [facility] [address] [place] [address] Bertin Khoury MD [address] [place] [address] [place] [address] documented as of this encounter Visit Diagnoses Not on filedocumented in this encounter Care Teams Peanut Cleaner Relationship Specialty Start Date End Date Kaye Talavera MD [address] [place], [place] PCP - General Internal Medicine 12/24/19 documented as of this encounter
--- OUTSIDE RECORDS SUMMARY | 2025-08-18 19:29 | XMS_ITS | Encounter Summary ---
Author Organization [facility], Address PO [facility] [place] [address] Phone Care Team Providers Care Lining Machine Tender Name Role Phone Kaye Talavera MD Primary Care Provider +1- [phone] Reason for Visit * Reason Comments Med Change Request Encounter Details Date Type Department Care Team (Late st Contact Info) Description 05/04/2022 Refill [facility], [address] [place] [address] Bertin Khoury MD [address] [place] [address] [place] [address] Social History Tobacco Use Types [...] Visit [facility] Of [address] [place] [address] Bertin Khoury MD [address] [place] [address] [place] [address] documented as of this encounter Visit Diagnoses Not on filedocumented in this encounter Care Teams Lining Machine Tender Relationship Specialty Start Date End Date Kaye Talavera MD [address] [place], [place] PCP - General Internal Medicine 12/24/19 documented as of this encounter
--- OUTSIDE RECORDS SUMMARY | 2025-08-18 19:29 | XMS_ITS | Encounter Summary ---
Author Organization [facility] Address [address] [place] [address] Phone Care Team Providers Care Manager Life Insurance Name Role Phone Kaye Talavera MD Primary Care Provider +1- [phone] Encounter Details Date Type Department Care Team (Late Contact Info) Description 07/03/2022 Orders Only [facility] [place], [address] [place] [address] Saulo Garcia MD Precordial pain [...] Visit [facility] [address] [place] [address] Bertin Khoury MD [address] [place] [address] [place] [address] documented as of this encounter Visit Diagnoses Diagnosis Precordial pain documented in this encounter Care Teams Manager Life Insurance Relationship Specialty Start Date End Date Kaye Talavera MD [address] [place], [place] PCP - General Internal Medicine 12/24/19 documented as of this encounter
--- OUTSIDE RECORDS SUMMARY | 2025-08-18 19:29 | XMS_ITS | Encounter Summary ---
Author Organization [facility], Address [address] [address] Phone Care Team Providers Care Eyewear Manufacturing Supervisor Name Role Phone Kaye Talavera MD Primary Care Provider +1- [phone] Reason for Visit * Reason Comments Med Refill Encounter Details Date Type Department Care Team (Late Contact Info) Description 04/25/2022 Refill [facility] [address] [place] [address] Saulo Garcia MD Social History [...] Visit [facility] Of [address] [place] [address] Bertin Khoury MD [address] [place] [address] [place] [address] documented as of this encounter Visit Diagnoses Not on filedocumented in this encounter Care Teams Eyewear Manufacturing Supervisor Relationship Specialty Start Date End Date Kaye Talavera MD [address] [place], [place] PCP - General Internal Medicine 12/24/19 documented as of this encounter
--- OUTSIDE RECORDS SUMMARY | 2025-08-18 19:29 | XMS_ITS | Encounter Summary ---
Author Organization [facility] [place], Address [address] [address] Phone Care Team Providers Care Radio Repairer Domestic Name Role Phone Kaye Talavera MD Primary Care Provider +1- [phone] Encounter Details Date Type Department Care Team (Late st Contact Info) Description 05/09/2022 Documentation Only [facility] [place], [address] [facility] [place] [address] Aguilar Riz[place]the[place], [place] [address] [place] [address] Social History Tobacco Use Types [...] Visit [facility] [place] [address] [facility] [place] [place] [address] Bertin Khoury MD [address] [facility] [place] [address] documented as of this encounter Visit Diagnoses Not on filedocumented in this encounter Care Teams Radio Repairer Domestic Relationship Specialty Start Date End Date Kaye Talavera MD [address] [place], [place] PCP - General Internal Medicine 12/24/19 documented as of this encounter
--- OUTSIDE RECORDS SUMMARY | 2025-08-18 19:29 | XMS_ITS | Encounter Summary ---
Author Organization [facility], Address PO [facility] [place] [address] Phone Care Team Providers Care Ed Case Manager Name Role Phone Kaye Talavera MD Primary Care Provider +1- [phone] Reason for Visit * Reason Comments Med Change Request Encounter Details Date Type Department Care Team (Late st Contact Info) Description 07/03/2022 Refill [facility], [address] [place] [address] Bertin Khoury MD [address] [place] [address] [place] [address] Social History Tobacco Use Types [...] Visit [facility] [address] [place] [address] Bertin Khoury MD [address] [place] [address] [place] [address] documented as of this encounter Visit Diagnoses Not on filedocumented in this encounter Care Teams Ed Case Manager Relationship Specialty Start Date End Date Kaye Talavera MD [address] [place], [place] PCP - General Internal Medicine 12/24/19 documented as of this encounter
--- OUTSIDE RECORDS SUMMARY | 2025-08-18 19:29 | XMS_ITS | Encounter Summary ---
Author Organization [facility] Address [address] [place] [address] Phone Care Team Providers Care High Speed Operator Name Role Phone Kaye Talavera MD Primary Care Provider +1- [phone] Encounter Details Date Type Department Care Team (Late st Contact Info) Description 06/08/2022 Orders Only [facility], [address] [facility] [place] [address] Saulo Garcia MD Glomerular disease [...] Visit [facility] [place] [address] [place] [address] Bertin Khoury MD [address] [facility] 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
--- OUTSIDE RECORDS SUMMARY | 2025-08-18 19:29 | XMS_ITS | Encounter Summary ---
Author Organization [facility], Address [address] [place] [address] Phone Care Team Providers Care Steam Plant Records Clerk Name Role Phone Kaye Talavera MD Primary Care Provider +1- [phone] Encounter Details Date Type Department Care Team (Latest Contact Info) Description 08/12/2020 Orders Only [facility] [address] [place] [phone] Saulo Garcia MD Chronic kidney disease stage [...] Visit [facility] Of [address] [place] [address] Bertin Khoury MD [address] [place] [address] [place] [address] documented as of this encounter Procedures Procedure Name Priority Date/Time Associated Diagnosis Comments LIPID PANEL Routine 11/29/2020 12:52 PM EDT Chronic kidney disease stage 3 Anemia in chronic kidney disease History of renal transplant SLE glomerulonephritis syndrome (HCC) Congenital iodine-deficiency syndrome, mixed type documented in this encounter Results * Lipid panel (11/29/2020 12:52 PM EDT) Cholesterol, Total 187 (<200) MG/DL [facility] Triglycerides 111 (<150) MG/DL [facility] HDL 66 (>39) MG/DL [facility] LDL Calculated 99 (0-130) MG/DL [facility] Non HDL Cholesterol 121 (<160) MG/DL [facility] Comment: Testing performed or reported by [facility], a Service of [facility], [address] [place] [address] Bel Mora MD, Supervisor [employer] Blood specimen (specimen) Venous blood / Unknown 11/29/2020 12:52 PM EDT 11/29/2020 12:53 PM EDT us Saulo Garcia MD LAB BLOOD ORDERABLES Final Res ult [facility] documented in this encounter Visit Diagnoses Diagnosis Chronic kidney disease stage 3 (HCC) Anemia in chronic kidney disease History of renal transplant SLE glomerulonephritis syndrome (HCC) Congenital iodine-deficiency syndrome, mixed type documented in this encounter Care Teams Steam Plant Records Clerk Relationship Specialty Start Date End Date Kaye Talavera MD [address] [place], [place] PCP - General Internal Medicine 12/24/19 documented as of this encounter
--- OUTSIDE RECORDS SUMMARY | 2025-08-18 19:30 | XMS_ITS | Encounter Summary ---
Author Organization [facility] [place], Address [address] [address] Phone Care Team Providers Care Data Processing Systems Project Planner Name Role Phone Kaye Talavera MD Primary Care Provider +1- [phone] Encounter Details Date Type Department Care Team (Late st Contact Info) Description 07/27/2024 Documentation Only [facility] [place], [address] [place] [address] Aguilar RizviF[place], [place] [address] [place] [address] Social History Tobacco Use Types [...] Visit [facility] [place] [address] [place] [address] Bertin Khoury MD [address] [facility] [place] [address] documented as of this encounter Visit Diagnoses Not on filedocumented in this encounter Care Teams Data Processing Systems Project Planner Relationship Specialty Start Date End Date Kaye Talavera MD [address] [place], [place] PCP - General Internal Medicine 12/24/19 documented as of this encounter
--- OUTSIDE RECORDS SUMMARY | 2025-08-18 19:30 | XMS_ITS | Encounter Summary ---
Author Organization [facility] Address [address] [address] Phone Care Team Providers Care Vp Sales Name Role Phone Kaye Talavera MD Primary Care Provider +1- [phone] Encounter Details Date Type Department Care Team (Late Contact Info) Description 12/15/2021 Documentation Only [facility] [place], [address] [place] [place] [address] Gabriela Rags[place] [address] [place] [address] Social History Tobacco Use Types Packs/Day [...] Visit [facility] [place] [address] [facility] [address] [place] [place] [address] Bertin Khoury MD [address] [facility] [place] [address] documented as of this encounter Visit Diagnoses Not on filedocumented in this encounter Care Teams Vp Sales Relationship Specialty Start Date End Date Kaye Talavera MD [address] [place], [place] PCP - General Internal Medicine 12/24/19 documented as of this encounter
--- OUTSIDE RECORDS SUMMARY | 2025-08-18 19:30 | XMS_ITS | Encounter Summary ---
Author Organization [facility] Address [address] [place] [address] Phone Care Team Providers Care Styrene Dehydration Reactor Operator Name Role Phone Kaye Talavera MD Primary Care Provider +1- [phone] Reason for Visit * Reason Comments Med Change Request Encounter Details Date Type Department Care Team (Late st Contact Info) Description 12/12/2021 Refill [facility] [address] [place] [address] Saulo Garcia MD Social History Tobacco Use [...] Visit [facility] Of [address] [place] [address] Bertin Khoury MD [address] [place] [address] [place] [address] documented as of this encounter Visit Diagnoses Not on filedocumented in this encounter Care Teams Styrene Dehydration Reactor Operator Relationship Specialty Start Date End Date Kaye Talavera MD [address] [place], [place] PCP - General Internal Medicine 12/24/19 documented as of this encounter
--- OUTSIDE RECORDS SUMMARY | 2025-08-18 19:30 | XMS_ITS | Encounter Summary ---
Author Organization [facility] Address [address] [address] Phone Care Team Providers Care Bankruptcy Attorney Name Role Phone Kaye Talavera MD Primary Care Provider +1- [phone] Encounter Details Date Type Department Care Team (Late Contact Info) Description 12/01/2021 Documentation Only [facility] [place], [address] [place] [address] Gabriela Ragsdale [address] [place] [address] Social History Tobacco Use Types Packs/Day [...] Visit [facility] [place] [address] [facility] [place] [address] Bertin Khoury MD [address] [facility] [place] [address] documented as of this encounter Visit Diagnoses Not on filedocumented in this encounter Care Teams Bankruptcy Attorney Relationship Specialty Start Date End Date Kaye Talavera MD [address] [place], [place] PCP - General Internal Medicine 12/24/19 documented as of this encounter
--- OUTSIDE RECORDS SUMMARY | 2025-08-18 19:30 | XMS_ITS | Encounter Summary ---
Author Organization [facility] [place], Address [address] [address] Phone Care Team Providers Care Postdoctoral Research Associate Name Role Phone Kaye Talavera MD Primary Care Provider +1- [phone] Encounter Details Date Type Department Care Team (Late st Contact Info) Description 11/25/2023 Documentation Only [facility] [place], [address] [facility] [place] [address] [place], [place], [place] [address] [place] [address] Social History Tobacco Use Types [...] Visit [facility] [place] [address] [address] [place] [address] Bertin Khoury MD [address] [facility] [place] [address] documented as of this encounter Visit Diagnoses Not on filedocumented in this encounter Care Teams Postdoctoral Research Associate Relationship Specialty Start Date End Date Kaye Talavera MD [address] [place], [place] PCP - General Internal Medicine 12/24/19 documented as of this encounter
--- OUTSIDE RECORDS SUMMARY | 2025-08-18 19:30 | XMS_ITS | Encounter Summary ---
Author Organization [facility] Of [facility] Address [address] [address] Phone Care Team Providers Care Wire Winding Machine Tender Name Role Phone Kaye Talavera MD Primary Care Provider +1- [phone] Encounter Details Date Type Department Care Team (Late st Contact Info) Description 12/20/2021 Documentation Only [facility] [place], [address] [place] [address] Gabriela Ragsdale [address] [place] [address] Social History Tobacco Use Types Packs/Day [...] Visit [facility] [place] [address] [facility] [facility] [place] [address] Bertin Khoury MD [address] [facility] [place] [address] documented as of this encounter Visit Diagnoses Not on filedocumented in this encounter Care Teams Wire Winding Machine Tender Relationship Specialty Start Date End Date Kaye Talavera MD [address] [place], [place] PCP - General Internal Medicine 12/24/19 documented as of this encounter
--- OUTSIDE RECORDS SUMMARY | 2025-08-18 19:30 | XMS_ITS | Encounter Summary ---
Author Organization [facility] [place], Address [address] [address] Phone Care Team Providers Care Clinical Research Director Name Role Phone Kaye Talavera MD Primary Care Provider +1- [phone] Encounter Details Date Type Department Care Team (Late st Contact Info) Description 02/12/2024 Documentation Only [facility] [place], [address] [facility] [place] [address] Aguilar [place], [place] [address] [place] [address] Social History Tobacco Use Types [...] Visit [facility] [place] [address] [facility] [place] [address] Bertin Khoury MD [address] [facility] [place] [address] documented as of this encounter Visit Diagnoses Not on filedocumented in this encounter Care Teams Clinical Research Director Relationship Specialty Start Date End Date Kaye Talavera MD [address] [place], [place] PCP - General Internal Medicine 12/24/19 documented as of this encounter
--- OUTSIDE RECORDS SUMMARY | 2025-08-18 19:30 | XMS_ITS | Encounter Summary ---
Author Organization [facility], Address [address] [address] Phone Care Team Providers Care Dimensional Engineer Name Role Phone Kaye Talavera MD Primary Care Provider +1- [phone] Encounter Details Date Type Department Care Team (Latest Contact Info) Description 03/02/2020 Orders Only [facility] [address] [place] [address] Saulo Garcia MD Chronic kidney [...] Visit [facility] [place] [address] [facility] [place] [address] Bertin Khoury MD [address] [place] [address] [place] [address] documented as of this encounter Procedures Procedure Name Priority Date/Time Associated Diagnosis Comments LIPID PANEL Routine 04/05/2020 11:25 AM EDT Chronic kidney disease stage 3 (HCC) Anemia in chronic kidney disease History of renal transplant SLE glomerulonephritis syndrome (HCC) Congenital iodine-deficiency syndrome, mixed type documented in this encounter Results * Lipid panel (04/05/2020 11:25 AM EDT) Cholesterol, Total 172 (<200) MG/DL [facility] Triglycerides 133 (<150) MG/DL [facility] HDL 51 (>39) MG/DL [facility] LDL Calculated 94 (0-130) MG/DL [facility] Non HDL Cholesterol 121 (<160) MG/DL [facility] Comment: Testing performed or reported by [facility], a Service of [facility], [address] [place] [address] Bel Mora MD, Life Insurance Specialist Blood specimen (specimen) Venous blood / Unknown 04/05/2020 11:25 AM EDT 04/05/2020 11:33 AM EDT us Saulo Garcia MD LAB BLOOD ORDERABLES Final Res ult [facility] documented in this encounter Visit Diagnoses Diagnosis Chronic kidney disease stage 3 (HCC) Anemia in chronic kidney disease History of renal transplant SLE glomerulonephritis syndrome (HCC) Congenital iodine-deficiency syndrome, mixed type documented in this encounter Care Teams Dimensional Engineer Relationship Specialty Start Date End Date Kaye Talavera MD [facility] [place], [place] PCP - General Internal Medicine 12/24/19 documented as of this encounter
--- OUTSIDE RECORDS SUMMARY | 2025-08-18 19:30 | XMS_ITS | Encounter Summary ---
Author Organization [facility], Address [address] [place] [address] Phone Care Team Providers Care Rubber Goods Inspector Tester Name Role Phone Kaye Talavera MD Primary Care Provider +1- [phone] Encounter Details Date Type Department Care Team (Latest Contact Info) Description 05/20/2020 Orders Only [facility] [address] [place] [phone] Saulo Garcia MD Chronic kidney disease stage [...] Visit [facility] Of [address] [place] [address] Bertin Khoury MD [address] [place] [address] [place] [address] documented as of this encounter Procedures Procedure Name Priority Date/Time Associated Diagnosis Comments LIPID PANEL Routine 06/27/2020 2:10 PM EDT Chronic kidney disease stage 3 Anemia in chronic kidney disease History of renal transplant SLE glomerulonephritis syndrome (HCC) Congenital iodine-deficiency syndrome, mixed type documented in this encounter Results * Lipid panel (06/27/2020 2:10 PM EDT) Cholesterol, Total 172 (<200) MG/DL [facility] Triglycerides 109 (<150) MG/DL [facility] Comment:Patient not fasting HDL 59 (>39) MG/DL [facility] LDL Calculated 91 (0-130) MG/DL [facility] Non HDL Cholesterol 113 (<160) MG/DL [facility] Comment: Testing performed or reported by [facility], a Service of [facility], [address] [place] [id number] Bel Mora MD, Casing Crew Blood specimen (specimen) Venous blood / Unknown 06/27/2020 2:10 PM EDT 06/27/2020 2:12 PM EDT us Saulo Garcia MD LAB BLOOD ORDERABLES Final Res ult [facility] documented in this encounter Visit Diagnoses Diagnosis Chronic kidney disease stage 3 (HCC) Anemia in chronic kidney disease History of renal transplant SLE glomerulonephritis syndrome (HCC) Congenital iodine-deficiency syndrome, mixed type documented in this encounter Care Teams Rubber Goods Inspector Tester Relationship Specialty Start Date End Date Kaye Talavera MD [address] [place], [place] PCP - General Internal Medicine 12/24/19 documented as of this encounter
--- OUTSIDE RECORDS SUMMARY | 2025-08-18 19:30 | XMS_ITS | Encounter Summary ---
Author Organization [facility] Address [address] [address] Phone Care Team Providers Care Flour Mixer Name Role Phone Kaye Talavera MD Primary Care Provider +1- [phone] Encounter Details Date Type Department Care Team (Late Contact Info) Description 02/12/2022 Documentation Only [facility] [place], [address] [place] [place] [address] Gabriela Ragsdale [address] [place] [phone] Social History Tobacco Use Types Packs/Day [...] Visit [facility] [place] [address] [place] [address] Bertin Khoury MD [address] [place] [address] documented as of this encounter Visit Diagnoses Not on filedocumented in this encounter Care Teams Flour Mixer Relationship Specialty Start Date End Date Kaye Talavera MD [address] [place], [place] PCP - General Internal Medicine 12/24/19 documented as of this encounter
--- OUTSIDE RECORDS SUMMARY | 2025-08-18 19:30 | XMS_ITS | Encounter Summary ---
Author Organization [facility], Address [address] [place] [address] Phone Care Team Providers Care Die Lay Out Worker Name Role Phone Kaye Talavera MD Primary Care Provider +1- [phone] Encounter Details Date Type Department Care Team (Latest Contact Info) Description 12/04/2019 Orders Only [facility] [address] [place] [phone] Saulo Garcia MD Chronic kidney disease stage [...] Visit [facility] [address] [place] [address] Bertin Khoury MD [address] [place] [address] [place] [address] documented as of this encounter [...] AM EDT) CKMD Index 3.4 (0-6) NG/ML [facility] Comment: Testing performed or reported by [facility], a Service of [address] [address] Bel Mora MD, Utility Appraiser 12/30/2019 11:4 2 AM EDT 12/30/2019 11:45 AM EDT Saulo Garcia MD LAB BLOOD ORDERABLES Final Res ult Performing Organization Address [facility] de Phone Number [facility] * Lipid panel (12/30/2019 11:42 AM EDT) Pathologist [facility] Cholesterol, Total 178 (<200) MG/DL [facility] Triglycerides 136 (<150) MG/DL [facility] HDL 47 (>39) MG/DL [facility] LDL Calculated 104 (0-130) MG/DL [facility] Non HDL Cholesterol 131 (<160) MG/DL [facility] Comment: Testing performed or reported by [facility], a Service of [address] [address] Bel Mora MD, Utility Appraiser Blood specimen (specimen) Venous blood / Unknown 12/30/2019 11:42 AM EDT 12/30/2019 11:45 AM EDT Saulo Garcia MD LAB BLOOD ORDERABLES Final Res ult [facility] documented in this encounter Visit Diagnoses Diagnosis Chronic kidney disease stage 3 (HCC) Anemia in chronic kidney disease History of renal transplant SLE glomerulonephritis syndrome (HCC) Congenital iodine-deficiency syndrome, mixed type documented in this encounter Care Teams Die Lay Out Worker Relationship Specialty Start Date End Date Kaye Talavera MD [address] [place], [place] PCP - General Internal Medicine 12/24/19 documented as of this encounter
--- OUTSIDE RECORDS SUMMARY | 2025-08-18 19:31 | XMS_ITS | Encounter Summary ---
Author Organization [facility] Address [address] [address] Phone Care Team Providers Care Granite Polisher Name Role Phone Kaye Talavera MD Primary Care Provider +1- [phone] Encounter Details Date Type Department Care Team (Late Contact Info) Description 01/09/2023 Documentation Only [facility] [place], [address] [place] [address] Gabriela Ragsdale [address] [place] [phone] Social History Tobacco Use Types Packs/Day [...] Visit [facility] [place] [address] [place] [address] Bertin Khoury MD [address] [address] [place] [address] documented as of this encounter Visit Diagnoses Not on filedocumented in this encounter Care Teams Granite Polisher Relationship Specialty Start Date End Date Kaye Talavera MD [address] [place], [place] PCP - General Internal Medicine 12/24/19 documented as of this encounter
--- OUTSIDE RECORDS SUMMARY | 2025-08-18 19:31 | XMS_ITS | Encounter Summary ---
Author Organization [facility] Address [address] [address] Phone Care Team Providers Care Gate Mortiser Operator Name Role Phone Kaye Talavera MD Primary Care Provider +1- [phone] Encounter Details Date Type Department Care Team (Late Contact Info) Description 01/28/2023 Documentation Only [facility] [place], [address] [place] [address] Gabriela Ragsdale [address] [place] [phone] Social History Tobacco Use Types Packs/Day [...] Visit [facility] [place] [address] [place] [address] Bertin Khoury MD [address] [facility] [place] [address] documented as of this encounter Visit Diagnoses Not on filedocumented in this encounter Care Teams Gate Mortiser Operator Relationship Specialty Start Date End Date Kaye Talavera MD [address] [place], [place] PCP - General Internal Medicine 12/24/19 documented as of this encounter
--- OUTSIDE RECORDS SUMMARY | 2025-08-18 19:31 | XMS_ITS | Encounter Summary ---
Author Organization [facility] [place], Address [address] [address] Phone Care Team Providers Care Automobile Rental Agent Name Role Phone Kaye Talavera MD Primary Care Provider +1- [phone] Encounter Details Date Type Department Care Team (Late st Contact Info) Description 01/28/2023 Documentation Only [facility] [place], [address] [place] [address] [place] [address] [place] [address] Social History Tobacco Use Types [...] Visit [facility] [place] [address] [place] [address] Bertin Khoury MD [address] [facility] [address] [place] [address] documented as of this encounter Visit Diagnoses Not on filedocumented in this encounter Care Teams Automobile Rental Agent Relationship Specialty Start Date End Date Kaye Talavera MD [address] [place], [place] PCP - General Internal Medicine 12/24/19 documented as of this encounter
--- OUTSIDE RECORDS SUMMARY | 2025-08-18 19:31 | XMS_ITS | Encounter Summary ---
Author Organization [facility] Address [address] [place] [address] Phone Care Team Providers Care Lpn Rn Name Role Phone Kaye Talavera MD Primary Care Provider +1- [phone] Reason for Visit * Reason Comments Med Change Request Encounter Details Date Type Department Care Team (Late st Contact Info) Description 11/27/2021 Refill [facility] [address] [place] [phone] Saulo Garcia MD Social History Tobacco Use [...] Visit [facility] [address] [place] [phone] Bertin Khoury MD [address] [place] [address] [place] [phone] documented as of this encounter Visit Diagnoses Not on filedocumented in this encounter Care Teams Lpn Rn Relationship Specialty Start Date End Date Kaye Talavera MD [address] [place], [place] PCP - General Internal Medicine 12/24/19 documented as of this encounter
--- OUTSIDE RECORDS SUMMARY | 2025-08-18 19:32 | XMS_ITS | Clinical Summary ---
Author Organization [facility], Address [address] [place] [address] [place] [address] Phone Care Team Providers Care Marketing Technology Specialist Name Role Phone Kaye Talavera MD Primary Care Provider +1- [phone] Allergies Active Allergy Reactions Criticality Noted Date [...] 3 09/28/19 23 Active ergocalciferol 1.25 MG (35395 UT) capsule TAKE 1 CAPSULE (50,000 UNITS [...] tablet 3 02/13/20 24 Active HYDROcodone-acet aminophen ([place]) 10-325 MG per tablet Take 1 tablet [...] Telephone [facility] [address] [place] [address] Nasra Kennedy MA 08/04/2025 11:30 AM EST Office Visit [facility] [place] [address] [place] [address] Bertin Khoury MD Kidney replaced by transplant (Primary Dx); Personal history of immunosuppression therapy; Stage 3a chronic kidney disease (HCC); Other cystitis without hematuria, not otherwise specified 06/24/2025 Orders Only [facility] [address] [place] [address] Nasra [place] MA Kidney replaced by transplant [...] Only [facility] [address] [place] [address] Bertin Khoury MD 06/18/2025 Orders Only [facility] [address] [place] [address] Nasra Kennedy MA 06/18/2025 Refill [facility] [address] [place] [address] Bertin Khoury MD 06/18/2025 Refill [facility] [address] [place] [address] Bertin Khoury MD 06/18/2025 Orders Only [facility] [address] [place] [address] Nasra Kennedy MA 05/31/2025 Refill [facility] [address] [place] [address] Bertin Khoury MD 05/22/2025 Refill [facility] [address] [place] [address] Bertin Khoury MD from Last 3 Months [...] Visit [facility] [address] [place] [address] Bertin Khoury MD [address] [place] [address] [place] [address] Health Maintenance Due Date Last Done Comments [...] Procedure Name Priority Date/Time Associated Diagnosis Comments HEMOGLOBIN A1C Routine 08/13/2025 1:10 PM EST Kidney replaced by transplant Personal history of immunosuppression therapy Stage 3a chronic kidney disease (HCC) Hypothyroidism, not otherwise specified Hypomagnesemia 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) History of renal transplant Vitamin D deficiency, not otherwise specified Idiopathic gout, not otherwise specified Other iron deficiency anemia Other specified hypoparathyroidism (HCC) Albuminuria, not otherwise specified Poor glycemic control URINALYSIS, COMPLETE Routine 08/13/2025 1:10 PM EST Kidney replaced by transplant Personal history of immunosuppression therapy Stage 3a chronic kidney disease (HCC) Hypothyroidism, not otherwise specified Hypomagnesemia 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) History of renal transplant Vitamin D deficiency, not otherwise specified Idiopathic gout, not otherwise specified Other iron deficiency anemia Other specified hypoparathyroidism (HCC) Albuminuria, not otherwise specified Poor glycemic control URINE ALBUMIN / CREATININE RATIO Routine 08/13/2025 1:10 PM EST Kidney replaced by transplant Personal history of immunosuppression therapy Stage 3a chronic kidney disease (HCC) Hypothyroidism, not otherwise specified Hypomagnesemia 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) History of renal transplant Vitamin D deficiency, not otherwise specified Idiopathic gout, not otherwise specified Other iron deficiency anemia Other specified hypoparathyroidism (HCC) Albuminuria, not otherwise specified Poor glycemic control CREATINE KINASE Routine 08/13/2025 1:10 PM EST Kidney replaced by transplant Personal history of immunosuppression therapy Stage 3a chronic kidney disease (HCC) Hypothyroidism, not otherwise specified Hypomagnesemia 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) History of renal transplant Vitamin D deficiency, not otherwise specified Idiopathic gout, not otherwise specified Other iron deficiency anemia Other specified hypoparathyroidism (HCC) Albuminuria, not otherwise specified Poor glycemic control AST Routine 08/13/2025 1:10 PM EST Kidney replaced by transplant Personal history of immunosuppression therapy Stage 3a chronic kidney disease (HCC) Hypothyroidism, not otherwise specified Hypomagnesemia 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) History of renal transplant Vitamin D deficiency, not otherwise specified Idiopathic gout, not otherwise specified Other iron deficiency anemia Other specified hypoparathyroidism (HCC) Albuminuria, not otherwise specified Poor glycemic control ALT Routine 08/13/2025 1:10 PM EST Kidney replaced by transplant Personal history of immunosuppression therapy Stage 3a chronic kidney disease (HCC) Hypothyroidism, not otherwise specified Hypomagnesemia 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) History of renal transplant Vitamin D deficiency, not otherwise specified Idiopathic gout, not otherwise specified Other iron deficiency anemia Other specified hypoparathyroidism (HCC) Albuminuria, not otherwise specified Poor glycemic control PTH, INTACT Routine 08/13/2025 1:10 PM EST Kidney replaced by transplant Personal history of immunosuppression therapy Stage 3a chronic kidney disease (HCC) Hypothyroidism, not otherwise specified Hypomagnesemia 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) History of renal transplant Vitamin D deficiency, not otherwise specified Idiopathic gout, not otherwise specified Other iron deficiency anemia Other specified hypoparathyroidism (HCC) Albuminuria, not otherwise specified Poor glycemic control IRON PANEL (FE, TIBC, TSAT) Routine 08/13/2025 1:10 PM EST Kidney replaced by transplant Personal history of immunosuppression therapy Stage 3a chronic kidney disease (HCC) Hypothyroidism, not otherwise specified Hypomagnesemia 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) History of renal transplant Vitamin D deficiency, not otherwise specified Idiopathic gout, not otherwise specified Other iron deficiency anemia Other specified hypoparathyroidism (HCC) Albuminuria, not otherwise specified Poor glycemic control FERRITIN Routine 08/13/2025 1:10 PM EST Kidney replaced by transplant Personal history of immunosuppression therapy Stage 3a chronic kidney disease (HCC) Hypothyroidism, not otherwise specified Hypomagnesemia 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) History of renal transplant Vitamin D deficiency, not otherwise specified Idiopathic gout, not otherwise specified Other iron deficiency anemia Other specified hypoparathyroidism (HCC) Albuminuria, not otherwise specified Poor glycemic control MAGNESIUM Routine 08/13/2025 1:10 PM EST Kidney replaced by transplant Personal history of immunosuppression therapy Stage 3a chronic kidney disease (HCC) Hypothyroidism, not otherwise specified Hypomagnesemia 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) History of renal transplant Vitamin D deficiency, not otherwise specified Idiopathic gout, not otherwise specified Other iron deficiency anemia Other specified hypoparathyroidism (HCC) Albuminuria, not otherwise specified Poor glycemic control LIPID PANEL Routine 08/13/2025 1:10 PM EST Kidney replaced by transplant Personal history of immunosuppression therapy Stage 3a chronic kidney disease (HCC) Hypothyroidism, not otherwise specified Hypomagnesemia 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) History of renal transplant Vitamin D deficiency, not otherwise specified Idiopathic gout, not otherwise specified Other iron deficiency anemia Other specified hypoparathyroidism (HCC) Albuminuria, not otherwise specified Poor glycemic control URIC ACID Routine 08/13/2025 1:10 PM EST Kidney replaced by transplant Personal history of immunosuppression therapy Stage 3a chronic kidney disease (HCC) Hypothyroidism, not otherwise specified Hypomagnesemia 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) History of renal transplant Vitamin D deficiency, not otherwise specified Idiopathic gout, not otherwise specified Other iron deficiency anemia Other specified hypoparathyroidism (HCC) Albuminuria, not otherwise specified Poor glycemic control VITAMIN D 25 HYDROXY Routine 08/13/2025 1:10 PM EST Kidney replaced by transplant Personal history of immunosuppression therapy Stage 3a chronic kidney disease (HCC) Hypothyroidism, not otherwise specified Hypomagnesemia 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) History of renal transplant Vitamin D deficiency, not otherwise specified Idiopathic gout, not otherwise specified Other iron deficiency anemia Other specified hypoparathyroidism (HCC) Albuminuria, not otherwise specified Poor glycemic control CBC AND DIFFERENTIAL Routine 08/13/2025 1:10 PM EST Kidney replaced by transplant Personal history of immunosuppression therapy Stage 3a chronic kidney disease (HCC) Hypothyroidism, not otherwise specified Hypomagnesemia 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) History of renal transplant Vitamin D deficiency, not otherwise specified Idiopathic gout, not otherwise specified Other iron deficiency anemia Other specified hypoparathyroidism (HCC) Albuminuria, not otherwise specified Poor glycemic control RENAL FUNCTION PANEL Routine 08/13/2025 1:10 PM EST Kidney replaced by transplant Personal history of immunosuppression therapy Stage 3a chronic kidney disease (HCC) Hypothyroidism, not otherwise specified Hypomagnesemia 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) History of renal transplant Vitamin D deficiency, not otherwise specified Idiopathic gout, not otherwise specified Other iron deficiency anemia Other specified hypoparathyroidism (HCC) Albuminuria, not otherwise specified Poor glycemic control MYCOPHENOLIC ACID AND METABO. Routine 08/13/2025 1:10 PM EST Kidney replaced by transplant Personal history of immunosuppression therapy Stage 3a chronic kidney disease (HCC) Hypothyroidism, not otherwise specified Hypomagnesemia 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) History of renal transplant Vitamin D deficiency, not otherwise specified Idiopathic gout, not otherwise specified Other iron deficiency anemia Other specified hypoparathyroidism (HCC) Albuminuria, not otherwise specified Poor glycemic control MICROSCOPIC EXAMINATION - DO NOT USE Routine 08/13/2025 1:10 PM EST MAGNESIUM Routine 05/21/2025 11:08 AM EDT TSH [...] EDT from Last 3 Months Results * (ABNORMAL) Urinalysis, Complete w/reflex to Culture (08/13/2025 1:10 PM EST) Only the most recent of2 resultswithin the time period is included. Specific [place], Urine 1.016 1.005 - 1.030 [facility] pH Urine 6.5 5.0 - 7.5 [facility] Color, Urine Yellow Yellow [facility] Appearance Urine Clear Clear [facility] [phone] WBC Esterase Urine Negative Negative [facility] [phone] Protein, Ur 2+(A) Negative/Tra ce [facility] [phone] Glucose, Ur Negative Negative [facility] [phone] Ketones, Urine Negative Negative [facility] Blood Urine Negative Negative [facility] Bilirubin Urine Negative Negative [facility] Urobilinogen Urine 0.2 0.2 - 1.0 mg/dL [facility] Nitrite, Urine Negative Negative [facility] Microscopic Examination See below: [facility] Comment:Microscopic was soco cated and was performed. URINALYSIS REFLEX Comment [facility] [phone] Comment:This specimen will n ot reflex to a Urine Culture. Urine 08/13/2025 1:10 PM EST 08/13/2025 us Bertin Khoury MD LAB URINE ORDERABLES Final Result [facility] [address] [place] [address] * (ABNORMAL) Mycophenolic Acid and Metabo. (08/13/2025 1:10 PM EST) Only the most recent of2 resultswithin the time period is included. Mycophenolic Acid 11.2(HH) 1.0 - 3.5 ug/mL [facility] Mycophenolic Acid Glucuronide 89 35 - 100 ug/mL [facility] Blood 08/13/2025 1:10 PM EST 08/13/2025 Narrative [facility] - 08/16/2025 6:06 PM EST Test(s) 218638-[id number] Acid; 202023- Mycophenolic Acid Glucuronide was developed and its performance characteristics determined by [facility]. It has not been cleared or approved by the Food and Drug Administration. Bertin Khoury MD LAB BLOOD ORDERABLES Final Result [facility] [address] [place] [address] * Microscopic Examination (08/13/2025 1:10 PM EST) Only the most recent of2 resultswithin the time period is included. WBC, Urine None seen 0 - 5 /hpf [facility] RBC, Urine None seen 0 - 2 /[facility] Squamous Epithelial, Urine None seen 0 - 10 /hpf [facility] Casts None seen None seen /lpf [facility] Bacteria, Urine None seen None seen/Few [facility] 08/13/2025 1:10 PM EST 08/13/2025 Bertin Khoury MD LAB MICROBIOLOGY - GENERAL ORDERABLES Final Result [facility] [address] [place] [address] * Iron Panel (Fe, TIBC, TSAT) (08/13/2025 1:10 PM EST) Only the most recent of2 resultswithin the time period is included. UIBC 217 131 - 425 ug/dL [facility] TIBC 297 250 - 450 ug/dL [facility] Iron 80 27 - 159 ug/dL [facility] [place] Iron Saturation (TSat) 27 15 - 55 % [facility] [place] Blood 08/13/2025 1:10 PM EST 08/13/2025 Bertin Khoury MD LAB BLOOD ORDERABLES Final Result Performing Organization Address City/[facility]/ZIP Co de Phone Number [facility] [place] [address] [place] [address] * (ABNORMAL) Urine Albumin / Creatinine Ratio (08/13/2025 1:10 PM EST) Only the most recent of2 resultswithin the time period is included. Creatinine, Ur 92.6 Not Estab. mg/dL [facility] Albumin, Urine 523.5 Not Estab. ug/mL [facility] Comment: Results confirmed on dilution. Albumin/Creatin ine Ratio 565(H) 0 - 29 mg/g creat [facility] Comment: Normal: 0 - 29 Moderately increased: 30 - 300 Severely increased: >300 Urine 08/13/2025 1:10 PM EST 08/13/2025 Bertin Khoury MD LAB URINE ORDERABLES Final Result [facility] [address] [place] [address] * Vitamin D 25 Hydroxy (08/13/2025 1:10 PM EST) Vitamin D, 25-OH, Total 58.3 30.0 - 100.0 ng/mL [facility] Comment: Vitamin D deficiency has been defined by the [place] of Medicine and an Endocrine Society practice guideline as a level of serum 25-OH vitamin D less than 20 ng/mL (1,2). The Endocrine Society went on to further define vitamin D insufficiency as a level between 21 and 29 ng/mL (2). 1. IOM ([place] of Medicine). 2010. Dietary reference intakes for calcium and D. [place]: The National Academies Press. 2. Estefani MF, Abraham BARNES, Aminta PATEL, et al. Evaluation, treatment, and prevention of vitamin D deficiency: an Endocrine Society clinical practice guideline. JCEM. 2010; 96(7):1911-30. Blood 08/13/2025 1:10 PM EST 08/13/2025 Bertin Khoury MD LAB BLOOD ORDERABLES Final Result [facility] [address] [place] [phone] * (ABNORMAL) CBC and Differential (08/13/2025 1:10 PM EST) Only the most recent of2 resultswithin the time period is included. WBC 6.3 3.4 - 10.8 x10E3/uL [facility] RBC 3.55(L) 3.77 - 5.28 x10E6/uL [facility] Hemoglobin 11.1 11.1 - 15.9 g/dL [facility] Hematocrit 33.7(L) 34.0 - 46.6 % [facility] MCV 95 79 - 97 fL [facility] MCH 31.3 26.6 - 33.0 pg [facility] MCHC 32.9 31.5 - 35.7 g/dL [facility] RDW 12.5 11.7 - 15.4 % [facility] Platelets 181 150 - 450 x10E3/uL [facility] Neutrophils Relative 64 Not Estab. % [facility] Lymphocytes Relative 26 Not Estab. % [facility] Monocytes 6 Not Estab. % [facility] Eosinophils Relative 3 Not Estab. % [facility] Basophils Relative 1 Not Estab. % [facility] Neutrophils Absolute 4.0 1.4 - 7.0 x10E3/uL [facility] Lymphocytes Absolute 1.6 0.7 - 3.1 x10E3/uL [facility] Monocytes Absolute 0.4 0.1 - 0.9 x10E3/uL [facility] Eosinophils Absolute 0.2 0.0 - 0.4 x10E3/uL [facility] Basophils Absolute 0.0 0.0 - 0.2 x10E3/uL [facility] Immature Granulocytes 0 Not Estab. % [facility] Immature Grans (Absolute) 0.0 0.0 - 0.1 x10E3/uL [facility] Blood 08/13/2025 1:10 PM EST 08/13/2025 Bertin Khoury MD LAB BLOOD ORDERABLES Final Result Performing Organization Address City/[facility]/ZIP Co de Phone Number [facility] [address] [place] [address] * Uric Acid (08/13/2025 1:10 PM EST) Uric Acid 6.1 3.0 - 7.2 mg/dL [facility] [place] Comment:Therapeutic target f or gout patients: <6.0 Blood 08/13/2025 1:10 PM EST 08/13/2025 Bertin Khoury MD LAB BLOOD ORDERABLES Final Result Performing Organization Address [facility] Co de Phone Number [facility] [place] [address], [address] [place] [address] * ALT (08/13/2025 1:10 PM EST) Only the most recent of2 resultswithin the time period is included. ALT (SGPT) 22 0 - 32 IU/L [facility] [place] Blood 08/13/2025 1:10 PM EST 08/13/2025 Bertin Khoury MD LAB BLOOD ORDERABLES Final Result Performing Organization Address [facility] Co de Phone Number [facility] [place] [address], [address] [place] [address] * AST (08/13/2025 1:10 PM EST) Only the most recent of2 resultswithin the time period is included. AST (SGOT) 20 0 - 40 IU/L [facility] [place] Blood 08/13/2025 1:10 PM EST 08/13/2025 Bertin Khoury MD LAB BLOOD ORDERABLES Final Result [facility] [place] [address], [address] [place] [address] * (ABNORMAL) PTH, Intact (08/13/2025 1:10 PM EST) Only the most recent of2 resultswithin the time period is included. PTH 66(H) 15 - 65 pg/mL [facility] [place] Blood 08/13/2025 1:10 PM EST 08/13/2025 Bertin Khoury MD LAB BLOOD ORDERABLES Final Result Performing Organization Address [facility]/ZIP Co de Phone Number [facility] [place] [address], [address] [place] [address] * Magnesium (08/13/2025 1:10 PM EST) Only the most recent of2 resultswithin the time period is included. Magnesium 2.2 1.6 - 2.3 mg/dL [facility] [place] Blood 08/13/2025 1:10 PM EST 08/13/2025 Bertin Khoury MD LAB BLOOD ORDERABLES Final Result [facility] [place] [address], [address] [place] [address] * Hemoglobin A1c (08/13/2025 1:10 PM EST) Hemoglobin A1C 5.4 4.8 - 5.6 % [facility] Comment: Prediabetes: 5.7 - 6.4 Diabetes: >6.4 Glycemic control for adults with diabetes: <7.0 Blood Venous blood / Unknown 08/13/2025 1:10 PM EST 08/13/2025 Bertin Khoury MD LAB BLOOD ORDERABLES Final Result Performing Organization Address City/[facility]/ZIP Co de Phone Number [facility] [address] [place] [address] * (ABNORMAL) Ferritin (08/13/2025 1:10 PM EST) Only the most recent of2 resultswithin the time period is included. Ferritin 162(H) 15 - 150 ng/mL [facility] [place] Blood 08/13/2025 1:10 PM EST 08/13/2025 Bertin Khoury MD LAB BLOOD ORDERABLES Final Result Performing Organization Address [facility] Co de Phone Number [facility] [place] [address], [address] [place] [address] * CK (08/13/2025 1:10 PM EST) Only the most recent of2 resultswithin the time period is included. Creatine Kinase (CK/CPK) 71 32 - 182 U/L [facility] [place] Blood 08/13/2025 1:10 PM EST 08/13/2025 Bertin Khoury MD LAB BLOOD ORDERABLES Final Result Performing Organization Address City/[facility] Co de Phone Number [facility] [place] [address], [address] [place] [address] * (ABNORMAL) Renal Function Panel (08/13/2025 1:10 PM EST) Only the most recent of2 resultswithin the time period is included. Sodium 138 134 - 144 mmol/L [facility] [place] Potassium 4.3 3.5 - 5.2 mmol/L [facility] [place] Chloride 103 96 - 106 mmol/L [facility] [place] Glucose 117(H) 70 - 99 mg/dL [facility] [place] BUN 27 8 - 27 mg/dL [facility] [place] Creatinine 1.28(H) 0.57 - 1.00 mg/dL [facility] [place] eGFR CKD-EPI CR 2020 48(L) >59 mL/min/1.7 3 [facility] [place] BUN/Creatinine Ratio 21 12 - 28 [facility] [place] Bicarbonate (CO2) 24 20 - 29 mmol/L [facility] [place] Calcium 10.1 8.7 - 10.3 mg/dL [facility] [place] Phosphorus 3.5 3.0 - 4.3 mg/dL [facility] [place] Albumin 4.1 3.8 - 4.9 g/dL [facility] [place] Blood 08/13/2025 1:10 PM EST 08/13/2025 us Bertin Khoury MD LAB BLOOD ORDERABLES Final Result [facility] [place] [address] [place] [address] * (ABNORMAL) Lipid panel (08/13/2025 1:10 PM EST) Cholesterol 192 100 - 199 mg/dL [facility] [place] Triglycerides 123 0 - 149 mg/dL [facility] [place] HDL 51 >39 mg/dL [facility] [place] VLDL Cholesterol [place] 22 5 - 40 mg/dL [facility] [place] LDL Calculated 119(H) 0 - 99 mg/dL [facility] [place] Blood 08/13/2025 1:10 PM EST 08/13/2025 Bertin Khoury MD LAB BLOOD ORDERABLES Final Result [facility] [place] [address], [address] [place] [address] * TSH (05/21/2025 11:08 AM EDT) TSH 0.597 0.450 - 4.500 uIU/mL [facility] 05/21/2025 11:0 8 AM EDT 05/21/2025 Bertin Khoury MD LAB BLOOD ORDERABLES Final Result [facility] [address] [place] [address] from Last 3 Months Insurance Medicaid OR Medicare Care Teams Marketing Technology Specialist Relationship Specialty Start Date End Date Kaye Talavera MD [address] [place], [place] PCP - General Internal Medicine 12/24/19
--- OUTSIDE RECORDS SUMMARY | 2025-08-18 19:32 | XMS_ITS | Encounter Summary ---
Author Organization [facility] Address [address] [address] Phone Care Team Providers Care Collarette Separator Name Role Phone Kaye Talavera MD Primary Care Provider +1- [phone] Encounter Details Date Type Department Care Team (Late Contact Info) Description 08/08/2022 Documentation Only [facility] [place], [address] [place] [address] Gabriela Ragsdale [address] [place] [phone] Social History Tobacco Use Types Packs/Day [...] Visit [facility] [place] [address] [place] [address] Bertin Khoury MD [address] [facility] [address] [place] [address] documented as of this encounter Visit Diagnoses Not on filedocumented in this encounter Care Teams Collarette Separator Relationship Specialty Start Date End Date Kaye Talavera MD [address] [place], [place] PCP - General Internal Medicine 12/24/19 documented as of this encounter
--- OUTSIDE RECORDS SUMMARY | 2025-08-18 19:32 | XMS_ITS | Encounter Summary ---
Author Organization [facility] Address [address] [address] Phone Care Team Providers Care Director Airport Name Role Phone Kaye Talavera MD Primary Care Provider +1- [phone] Encounter Details Date Type Department Care Team (Late Contact Info) Description 10/13/2021 Documentation Only [facility] [place], [address] [place] [address] Gabriela Ragsdale [address] [place] [phone] Social History Tobacco Use Types Packs/Day [...] Visit [facility] [place] [address] [place] [address] Bertin Khoury MD [address] [facility] [place] [address] documented as of this encounter Visit Diagnoses Not on filedocumented in this encounter Care Teams Director Airport Relationship Specialty Start Date End Date Kaye Talavera MD [address] [place], [place] PCP - General Internal Medicine 12/24/19 documented as of this encounter
--- OUTSIDE RECORDS SUMMARY | 2025-08-18 19:32 | XMS_ITS | Encounter Summary ---
Author Organization [facility] Address [address] [address] Phone Care Team Providers Care Medical Billing Service Name Role Phone Kaye Talavera MD Primary Care Provider +1- [phone] Encounter Details Date Type Department Care Team (Late Contact Info) Description 11/02/2021 Documentation Only [facility] [place], [address] [place] [address] Gabriela Ragsdale [address] [place] [phone] Social History Tobacco Use Types Packs/Day [...] Visit [facility] [place] [address] [facility] [address] [place] [address] Bertin Khoury MD [address] [facility] [place] [address] documented as of this encounter Visit Diagnoses Not on filedocumented in this encounter Care Teams Medical Billing Service Relationship Specialty Start Date End Date Kaye Talavera MD [address] [place], [place] PCP - General Internal Medicine 12/24/19 documented as of this encounter
--- OUTSIDE RECORDS SUMMARY | 2025-08-18 19:32 | XMS_ITS | Encounter Summary ---
Author Organization [facility], Address [address] [address] Phone Care Team Providers Care Dehydrator Tender Name Role Phone Kaye Talavera MD Primary Care Provider +1- [phone] Encounter Details Date Type Department Care Team (Late Contact Info) Description 12/19/2020 Orders Only [facility] [address] [place] [address] Saulo Garcia MD Anemia in [...] Visit [facility] [address] [place] [address] Bertin Khoury MD [address] [place] [address] 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
--- OUTSIDE RECORDS SUMMARY | 2025-08-18 19:32 | XMS_ITS | Encounter Summary ---
Author Organization [facility] Address [address] [address] Phone Care Team Providers Care Lump Inspector Name Role Phone Kaye Talavera MD Primary Care Provider +1- [phone] Encounter Details Date Type Department Care Team (Late Contact Info) Description 10/08/2022 Documentation Only [facility] [place], [address] [place] [address] Gabriela Ragsdale [address] [place] [phone] Social History Tobacco Use Types Packs/Day [...] Visit [facility] [place] [address] [place] [address] Bertin Khoury MD [address] [facility] [place] [address] documented as of this encounter Visit Diagnoses Not on filedocumented in this encounter Care Teams Lump Inspector Relationship Specialty Start Date End Date Kaye Talavera MD [address] [place], [place] PCP - General Internal Medicine 12/24/19 documented as of this encounter
--- OUTSIDE RECORDS SUMMARY | 2025-08-18 19:32 | XMS_ITS | Encounter Summary ---
Author Organization [facility] Address [address] [address] Phone Care Team Providers Care Mental Retardation Aide Name Role Phone Kaye Talavera MD Primary Care Provider +1- [phone] Encounter Details Date Type Department Care Team (Late Contact Info) Description 11/06/2022 Documentation Only [facility] [place], [address] [place] [address] Gabriela Ragsdale [address] [place] [phone] Social History Tobacco Use Types Packs/Day [...] Visit [facility] [place] [address] [facility] [place] [place] [address] Bertin Khoury MD [address] [facility] [place] [address] documented as of this encounter Visit Diagnoses Not on filedocumented in this encounter Care Teams Mental Retardation Aide Relationship Specialty Start Date End Date Kaye Talavera MD [address] [place], [place] PCP - General Internal Medicine 12/24/19 documented as of this encounter
--- OUTSIDE RECORDS SUMMARY | 2025-08-18 19:33 | XMS_ITS | Encounter Summary ---
Author Organization [facility] Address [address] [address] Phone Care Team Providers Care Liberal Arts Teacher Name Role Phone Kaye Talavera MD Primary Care Provider +1- [phone] Encounter Details Date Type Department Care Team (Late Contact Info) Description 07/23/2023 Documentation Only [facility] [place], [address] [place] [address] Gabriela Ragsdale [address] [place] [phone] Social History Tobacco Use Types Packs/Day [...] Visit [facility] [place] [address] [facility] [address] Bertin Khoury MD [address] [facility] [place] [address] documented as of this encounter Visit Diagnoses Not on filedocumented in this encounter Care Teams Liberal Arts Teacher Relationship Specialty Start Date End Date Kaye Talavera MD [address] [place], [place] PCP - General Internal Medicine 12/24/19 documented as of this encounter
--- OUTSIDE RECORDS SUMMARY | 2025-08-18 19:33 | XMS_ITS | Encounter Summary ---
Author Organization [facility] Address [address] [place] [address] Phone Care Team Providers Care Soft Metals Engraver Hand Name Role Phone Kaye Talavera MD Primary Care Provider +1- [phone] Reason for Visit * Reason Comments Med Change Request Encounter Details Date Type Department Care Team (Late st Contact Info) Description 06/27/2023 Refill [facility] [address] [place] [phone] Saulo Garcia MD Social History Tobacco Use [...] [facility] [address] [place] [address] Bertin Khoury MD [address] [place] [address] [place] [phone] documented as of this encounter Visit Diagnoses Not on filedocumented in this encounter Care Teams Soft Metals Engraver Hand Relationship Specialty Start Date End Date Kaye Talavera MD [address] [place], [place] PCP - General Internal Medicine 12/24/19 documented as of this encounter
--- OUTSIDE RECORDS SUMMARY | 2025-08-18 19:33 | XMS_ITS | Clinical Summary ---
Author Organization [facility] Address [address] [place] [address] Phone Care Team Providers Care Stretcher Helper Name Role Phone Kaye Talavera MD Primary Care Provider +1- [phone] Allergies Active Allergy Reactions Criticality Noted Date [...] Orders: ECG 12 lead Paroxysmal atrial fibrillation 07/02/2022 Assessment & Plan (11/02/2024 2:47 PM [...] Diabetes: Annual GFR (Glomerular Filtration Rate) 1965 Drug Screen 1965 Non-Opioid Controlled Substance Agreement 1965 Diabetes: Annual Foot Exam 1975 Diabetes: [...] Insurance MEDICARE MEDICAID - [place] Care Teams Stretcher Helper Relationship Specialty Start Date End Date Kaye Talavera MD [address] [place] [address] PCP - General 04/18/16
== END 2025-08-18 13:18 | disposition home or self-care (01) ==
LOC: HO.HPHYS 12:45
PROVIDERS: PCP Internal Medicine; Visit Provider Physician Assistant
DX: M54.12 Radiculopathy, cervical region (principal)
CPT/HCPCS: 99204

== ENCOUNTER → 2025-08-18 12:45 | Outpatient (BNVA) | payer MEDICARE, MEDICAID, SELFPAY | PROVIDERS: PCP Internal Medicine; Visit Provider Physician Assistant | DX: M54.12 Radiculopathy, cervical region (principal); M79.7 Fibromyalgia; M32.14 Glomerular disease in systemic lupus erythematosus; Z94.0 Kidney transplant status | CPT/HCPCS: 99202 ==